=== PATIENT | male | born 1940 | race Caucasian/White ===

== ENCOUNTER 2019-05-26 16:43 | Inpatient (IN) | payer OTHER ==
--- NOTE | 2019-05-26 18:19 | PDOC ---
Documentation entered by Babatunde Salvador SCRIBE, acting as scribe for Jane Bee MD. Jane Bee MD: This documentation has been prepared by the tasheModesto Daniel, SCRIBE, under my direction and personally reviewed by me in its entirety. I confirm that the documentation accurately reflects all work, treatment, procedures, and medical decision making performed by me. 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 Patient had complaint of shoulder pain 05/26/19 18:21 The patient is a 79 year old male with a past medical history of HTN, anemia, hypothyroidism, bipolar disorder, BPH, HLD, CKD, and schizophrenia here today from [facility] for evaluation of fall. The patient is a poor historian and is unable to provide history. As per [facility] paperwork, patient was found on the floor this morning on his abdomen and complained of shoulder pain at that time. Allergies: NKA - Physicial Exam PE: 05/26/19 18:18 Disheveled appearing 79-year-old man with a heavy rod and a essential hand resting tremor 05/26/19 18:19 Head there is no appreciable scalp hematoma or laceration Neck no cervical vertebral tenderness appreciated Lungs no wheezing, no crackles CVS [id number] Abdomen protuberant, nontender Extremities he is able to extend both legs on the gurney and there is some mild edema bilaterally,right shoulder tenderness Skin no appreciable lacerations Neuro patient is alert but has a great difficulty speaking and has a resting hand tremor in his extremities, very poor historian 05/26/19 20:29 05/27/19 02:07 05/27/19 02:08 05/27/19 02:09 - Medical Decision Making 05/26/19 21:45 CAT scan of the head did not show any acute fracture or intracranial hemorrhage CT scan of the neck did not show any fracture 05/27/19 02:10 ct chest no ptx there is a right humerus fracture pt admitted to telemetry syncope/fall/ rt humerus fracture/chronic renal disease stage 4
--- NOTE | 2019-05-26 18:34 | PDOC ---
History of Present Illness - History of Present Illness Initial Comments: 05/26/19 18:28 The patient is a 79 YO M from [place], with a PMHx of anemia, hypothyroidism, bipolar disorder, ASHD, thrombocytopenia, who was BIBA from [facility] s/p unwitnessed fall this morning. According to the information from the care home, the patient was found down around 5am this morning. He was complaining of pain in the R arm leg and had apparently hit the R side of his head. Per the patient he got up and was not using his walker when he fell to the ground on the R side of his body. The patient denied feeling dizzy, having heart palpitations, SOB, CP, abdominal pain, changes in vision or hearing, numbness or tingling in his hands or feet. Pt is an extremely poor historian, hx limited by patients ability to recount events. Pt is extremely tangential and difficult to focus. 05/26/19 18:37 <Tamra Storm - Last Filed: 05/26/19 18:28> <Jane Bee - Last Filed: 05/27/19 00:28> - General Chief Complaint: Injury Stated Complaint: FALL,INJURY Time Seen by Provider: 05/26/19 17:34 Past History - Past Medical History Anemia: Yes Cardiac Disorders: Yes (Atherosclerotic heart disaease, aNGINA) COPD: No Thyroid Disease: Yes (Hypothyroidism) - Psycho Social/Smoking Cessation Hx Smoking History: Never smoked Have you smoked in the past 12 months: No Information on smoking cessation initiated: No Hx Alcohol Use: No Drug/Substance Use Hx: No <Tamra Storm - Last Filed: 05/26/19 18:28> <Jane Bee - Last Filed: 05/27/19 00:28> - Past Medical History Allergies/Adverse Reactions: Allergies Allergy/AdvReac Type Severity Reaction Status Date / Time No Known Allergies Allergy Verified 11/21/18 10:43 Home Medications: Ambulatory Orders Aspirin [ASA -] 1 tab PO DAILY 08/19/18 Divalproex [Depakote -] 1,000 mg PO BID 08/19/18 Gabapentin 100 mg PO BID 08/19/18 Levothyroxine [Synthroid -] 125 mcg PO DAILY 08/19/18 Melatonin 5 mg PO HS 08/19/18 Olanzapine 10 mg PO DAILY 08/19/18 Sennosides [Senna] 8.6 mg PO HS 08/19/18 Tamsulosin HCl 0.4 cap PO HS 08/19/18 Ferrous Sulfate 325 mg PO DAILY 09/30/18 Atorvastatin Ca [Lipitor] 10 mg PO HS 05/26/19 Loxapine Succinate [Loxapine] 10 mg PO BID 05/26/19 Review of Systems - Review of Systems Able to Perform ROS?: Yes Comments:: 05/26/19 18:39 See HPI Is the patient limited Romansh proficient: No <Tamra Storm - Last Filed: 05/26/19 18:28> *Physical Exam - Vital Signs Last Vital Signs Temp Pulse Resp BP Pulse Ox 99.5 F 102 H 20 129/75 93 L 05/26/19 16:53 05/26/19 16:53 05/26/19 16:53 05/26/19 16:53 05/26/19 16:53 - Physical Exam General Appearance: Yes: Disheveled, Obese. No: Apparent Distress HEENT: positive: EOMI, Normal Voice, Other (extremely dry mucous membranes ) Neck: positive: Trachea midline, Supple. negative: Tender Respiratory/Chest: positive: Lungs Clear, Normal Breath Sounds. negative: Chest Tender, Respiratory Distress, Accessory Muscle Use Cardiovascular: positive: Regular Rhythm, Regular Rate, S1, S2 Gastrointestinal/Abdominal: positive: Normal Bowel Sounds, Soft. negative: Tender, Organomegaly Extremity: positive: Normal Capillary Refill, Tender, Other (Limited ROM @ R shoulder joint 2/2 pain, R arm looks swollen compared to L. TTP at R shoulder. 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 NML intact, Alert, Normal Response <Tamra Storm - Last Filed: 05/26/19 18:28> - Vital Signs Last Vital Signs Temp Pulse Resp BP Pulse Ox 99.5 F 102 H 20 129/75 93 L 05/26/19 16:53 05/26/19 16:53 05/26/19 16:53 05/26/19 16:53 05/26/19 16:53 <Jane Bee - Last Filed: 05/27/19 00:28> ED Treatment Course - RADIOLOGY Radiology Studies Ordered: Category Date Time Status CERVICAL SPINE CT W/O CONTR [CT] Stat CT Scan 05/26/19 18:[address] WITHOUT CONTRAST [CT] Stat CT Scan 05/26/19 18:13 Ordered ANKLE-RIGHT [RAD] Stat Radiology 05/26/19 18:09 Ordered CHEST PA & LAT [RAD] Stat Radiology 05/26/19 18:09 Ordered FEMUR-RIGHT [RAD] Stat Radiology 05/26/19 18:09 Ordered HUMERUS-RIGHT [RAD] Stat Radiology 05/26/19 18:09 Ordered PELVIS [RAD] Stat Radiology 05/26/19 18:09 Ordered WRIST- RIGHT [RAD] Stat Radiology 05/26/19 18:09 Ordered <Tamra Storm - Last Filed: 05/26/19 18:28> - LABORATORY CBC & Chemistry Diagram: 05/26/19 21:10 05/26/19 21:13 - ADDITIONAL ORDERS Additional order review: Laboratory Results 05/26/19 05/26/19 21:13 21:13 PT with INR 11.30 INR 0.96 Sodium 148 H Potassium 4.5 Chloride 115 H Carbon Dioxide 26 Anion Gap 7 L BUN 31.8 H Creatinine 2.9 H Est GFR (CKD-EPI)AfAm 23.12 Est GFR (CKD-EPI)NonAf 19.95 Random Glucose 144 H Calcium 8.8 Total Bilirubin 0.6 AST 14 L ALT 19 Alkaline Phosphatase 62 Creatine Kinase 184 Creatine Kinase Index 0.9 CK-MB (CK-2) 1.7 Troponin I < 0.02 Total Protein 6.9 Albumin 3.2 L 05/26/19 21:10 RBC 3.45 L MCV 101.4 H MCHC 32.7 RDW 13.9 MPV 10.1 Neutrophils % 59.5 Lymphocytes % 19.0 Monocytes % 20.6 H Eosinophils % 0.1 Basophils % 0.8 - RADIOLOGY Radiology Studies Ordered: Category Date Time Status CHEST CT WITHOUT CONTRAST [CT] Stat CT Scan 05/26/19 19:39 Completed - Medications Given in the ED: ED Medications Discontinued Medications Generic Name Dose Route Start Last Admin Trade Name Freq PRN Reason Stop Dose Admin Acetaminophen 975 mg 05/26/19 19:24 05/26/19 21:22 Tylenol - PO 05/26/19 19:25 Not Given ONCE ONE <Jane Bee - Last Filed: 05/27/19 00:28> Medical Decision Making - Medical Decision Making 05/26/19 18:34 The patient is a 79 YO M from [place], with a PMHx of anemia, hypothyroidism, bipolar disorder, ASHD, thrombocytopenia, who was BIBA from [facility] s/p unwitnessed fall this morning. Will obtain: - CT head and c-spine without contrast - CBC - CMP - Cardiac Profile - EKG - Xrays of the RUE, RLE, pelvis and chest <Tamra Storm - Last Filed: 05/26/19 18:28> Discharge <Tamra Storm - Last Filed: 05/26/19 18:28> - Discharge Information Problems reviewed: Yes - Admission Yes <Jane Bee - Last Filed: 05/27/19 00:28> - Discharge Information Clinical Impression/Diagnosis: Chronic renal failure, stage 4 (severe), Atypical syncope, Essential tremor, Bipolar disease, chronic Displaced fracture of left humerus Qualifiers: Encounter type: initial encounter Humerus Location: surgical neck Fracture type : closed Fracture morphology: unspecified fracture morphology Qualified Code(s) : S42.212A - Unspecified displaced fracture of surgical neck of left humerus, initial encounter for closed fracture Fall Qualifiers: Encounter type: initial encounter Qualified Code(s): W19.XXXA - Unspecified fall, initial encounter Condition: Good
[2019-05-26] MEDS ORDERED: ACETAMINOPHEN 500 MG TABLET (FP) PO ONE (19:24)
[2019-05-26] MEDS ORDERED: ACETAMINOPHEN 325 MG TABLET (FP) ONE (21:21)
[2019-05-26 21:29] LABS: BASO % 0.8 % (0-2.0); EOS % 0.1 % (0-4.5); HEMOGLOBIN 11.4 GM/dL (11.7-16.9); MCH 33.1 pg (25.7-33.7); MCHC 32.7 g/dl (32.0-35.9); MEAN CELL VOLUME 101.4 fl (80-96); MEAN PLT VOLUME 10.1 fl (7.5-11.1); MONO % 20.6 % (3.8-10.2); NEUT % 59.5 % (42.8-82.8); PLATELET COUNT 101 K/MM3 (134-434); RBC 3.45 M/mm3 (4.00-5.60); RDW 13.9 % (11.9-15.9); WHITE BLOOD COUNT 10.5 K/mm3 (4.0-10.0)
[2019-05-26 21:51] LABS: ALBUMIN 3.2 g/dl (3.4-5.0); ALK PHOS 62 U/L (45-117); ANION GAP 7 MMOL/L (8-16); BILIRUBIN,TOTAL 0.6 mg/dL (0.2-1); BLOOD UREA NITROGEN 31.8 mg/dL (7-18); CALCIUM 8.8 mg/dL (8.5-10.1); CHLORIDE 115 mmol/L (98-107); CO2 26 mmol/L (21-32); CREATININE 2.9 mg/dL (0.55-1.3); GLUCOSE,RANDOM 144 mg/dL (74-106); POTASSIUM 4.5 mmol/L (3.5-5.1); SGOT/AST 14 U/L (15-37); SGPT/ALT 19 U/L (13-61); SODIUM 148 mmol/L (136-145); TOT PROT 6.9 g/dl (6.4-8.2)
[2019-05-26 21:54] LABS: INR 0.96 (0.83-1.09); PROTHROMBIN TIME (PATIENT) 11.3 SEC (9.7-13.0)
[2019-05-26 23:06] LABS: PLATELET ESTIMATE DECREASED
--- NOTE | 2019-05-26 23:24 | HP ---
Admitting History and Physical - Primary Care Physician PCP: Lacho Ureña ([facility]) - Admission History of Present Illness: This is a 79 y/o man from [facility] with a PMHx of HTN, CKD Stage 4, Anemia, Hypothyroidism, Bipolar Disorder, ASHD, Thrombocytopenia. Who presented to s/p unwitnessed fall this morning. Patient has Bipolar and Mague According to the information from the long term, the patient was found down around 5am this morning. He was complaining of pain in the R arm leg and had apparently hit the R side of his head. Per the patient he got up and was not using his walker when he fell to the ground on the R side of his body. The patient denied feeling dizzy, having heart palpitations, SOB, CP, abdominal pain, changes in vision or hearing, numbness or tingling in his hands or feet. Pt is an extremely poor historian, hx limited by patients ability to recount events. Pt is extremely tangential and difficult to focus. - Smoking History Smoking history: Never smoked Have you smoked in the past 12 months: No - Alcohol/Substance Use Hx Alcohol Use: No Home Medications - Allergies Allergies/Adverse Reactions: Allergies Allergy/AdvReac Type Severity Reaction Status Date / Time No Known Allergies Allergy Verified 11/21/18 10:43 - Home Medications Home Medications: Ambulatory Orders Aspirin [ASA -] 1 tab PO DAILY 08/19/18 Divalproex [Depakote -] 1,000 mg PO BID 08/19/18 Gabapentin 100 mg PO BID 08/19/18 Levothyroxine [Synthroid -] 125 mcg PO DAILY 08/19/18 Melatonin 5 mg PO HS 08/19/18 Olanzapine 10 mg PO DAILY 08/19/18 Sennosides [Senna] 8.6 mg PO HS 08/19/18 Tamsulosin HCl 0.4 cap PO HS 08/19/18 Ferrous Sulfate 325 mg PO DAILY 09/30/18 Atorvastatin Ca [Lipitor] 10 mg PO HS 05/26/19 Loxapine Succinate [Loxapine] 10 mg PO BID 05/26/19 Physical Examination Vital Signs: Vital Signs Temperature 99.5 F 05/26/19 16:53 Pulse Rate 102 H 05/26/19 16:53 Respiratory Rate 20 05/26/19 16:53 Blood Pressure 129/75 05/26/19 16:53 O2 Sat by Pulse Oximetry (%) 93 L 05/26/19 16:53 Labs: CBC, BMP 05/26/19 21:10 05/26/19 21:13 Problem List - Problems (1) Atypical syncope Assessment/Plan: Likely secondary to arrhythmia vs advance disease process Cardiac monitoring Serial Enzymes Appreciate Cardiology consult Echo in am EKG- reviewed Chest Xray-reviewed Code(s): R55 - SYNCOPE AND COLLAPSE (2) Displaced fracture of right humerus Assessment/Plan: s/p fall at [facility] Humerus Xray- reviewed Appreciate Ortho Consult Sling Elevate extremity Neurovascular checks NPO Ofirmev prn Code(s): S42.301A - UNSP FRACTURE OF SHAFT OF HUMERUS, RIGHT ARM, INIT (3) Fall Assessment/Plan: Unwitnessed fall at [facility] Head CT reviewed Xrays reviewed See above Fall Precautions Code(s): W19.XXXA - UNSPECIFIED FALL, INITIAL ENCOUNTER Qualifiers: Encounter type: initial encounter Qualified Code(s): W19.XXXA - Unspecified fall, initial encounter (4) Bipolar disease, chronic Assessment/Plan: stable Continue home meds Code(s): F31.9 - BIPOLAR DISORDER, UNSPECIFIED (5) Chronic renal failure, stage 4 (severe) Code(s): N18.4 - CHRONIC KIDNEY DISEASE, STAGE 4 (SEVERE) (6) Lymphedema Code(s): I89.0 - LYMPHEDEMA, NOT ELSEWHERE CLASSIFIED Assessment/Plan This is a 79 y/o man from [facility] with a PMHx of HTN, CKD Stage 4, Anemia, Hypothyroidism, Bipolar Disorder, ASHD, Thrombocytopenia. Admitted for Syncope, Right Humerus Fracture for further evaluation of their emergent condition. Plan: See Problem List FEN Fluid Restriction 1L Replete lytes prn NPO DVT ppx OOB SCDs Heparin SQ Dispo: Requires Inpatient Care Visit type - Emergency Visit Emergency Visit: Yes ED Registration Date: 05/26/19 Care time: The patient presented to the Emergency Department on the above date and was hospitalized for further evaluation of their emergent condition. - New Patient This patient is new to me today: Yes Date on this admission: 05/26/19 - Critical Care Critical Care patient: No
[2019-05-27 02:23] LABS: PH,URINE 6.5 (5.0-8.0); URINE APPEARANCE CLEAR; URINE BILIRUBIN NEGATIVE (NEGATIVE); URINE COLOR YELLOW; URINE GLUCOSE (UA) NEGATIVE (NEGATIVE); URINE KETONE NEGATIVE (NEGATIVE); URINE LEUK ESTERASE NEGATIVE (NEGATIVE); URINE NITRITE NEGATIVE (NEGATIVE); URINE PROTEIN TRACE (NEGATIVE); URINE UROBILINOGEN 0.2 mg/dL (0.2-1.0)
[2019-05-27] MEDS ORDERED: ACETAMINOPHEN 1000 MG/100 ML VIAL (NON FORMULARY) IVPB PRN (05:22)
[2019-05-27] MEDS ORDERED: LEVOTHYROXINE NA 25 MCG TABLET (FP) ONE (06:10)
[2019-05-27] MEDS: LEVOTHYROXINE NA 125 MCG TABLET (FP) PO SCH (06:39)
[2019-05-27 07:38] LABS: BASO % 0.6 % (0-2.0); EOS % 0.1 % (0-4.5); HEMOGLOBIN 11.5 GM/dL (11.7-16.9); LYMPH % 22.3 % (8-40); MCH 33.9 pg (25.7-33.7); MCHC 33.9 g/dl (32.0-35.9); MEAN PLT VOLUME 10.4 fl (7.5-11.1); MONO % 22.2 % (3.8-10.2); NEUT % 54.8 % (42.8-82.8); PLATELET COUNT 104 K/MM3 (134-434); RDW 13.7 % (11.9-15.9); WHITE BLOOD COUNT 10.6 K/mm3 (4.0-10.0)
[2019-05-27 08:10] LABS: ANION GAP 6 MMOL/L (8-16); BLOOD UREA NITROGEN 33.8 mg/dL (7-18); CALCIUM 8.9 mg/dL (8.5-10.1); CHLORIDE 118 mmol/L (98-107); CHOLESTEROL 185 mg/dL (50-200); CO2 26 mmol/L (21-32); CREATININE 2.8 mg/dL (0.55-1.3); GLUCOSE,RANDOM 128 mg/dL (74-106); HDL CHOLESTEROL 28 mg/dL (40-60); LDL CHOLESTEROL (ONLY SJRH) 120 mg/dL (5-100); MAGNESIUM 2.7 mg/dL (1.8-2.4); PHOSPHOROUS 2.8 mg/dL (2.5-4.9); POTASSIUM 4.2 mmol/L (3.5-5.1); SODIUM 151 mmol/L (136-145); TRIGLYCERIDES 260 mg/dL (0-150)
[2019-05-27] MEDS ORDERED: TAMSULOSIN HCL 0.4 MG CAP PO SCH ×2 (08:30)
--- NOTE | 2019-05-27 08:59 | CON.CARD ---
Consult Consult Specialty:: cardio - History of Present Illness Chief Complaint: fall History of Present Illness: 79 y/o man from [facility] with a PMHx of . Who presented to s/p unwitnessed fall this morning. Patient has Bipolar and Mague According to the information from the [place] [facility], the patient was found down around 5am this morning. He was complaining of pain in the R arm leg and had apparently hit the R side of his head. Per the patient he got up and was not using his walker when he fell to the ground on the R side of his body. tangential historian to admitting team. CT head no acute pathology. + fracture of humerus remains tangential on my exam, with atypical language at times. he does not commit to details of events--states he went in [place], into elevator to lobby, looking out the window and then at some point fell. "yes" he tripped, but ? if he lost consciousness/blacked out. he denies cp, palpitations, feeling dizzy/LH prior to falling PMH: HTN, CKD Stage 4, Anemia, Hypothyroidism, Bipolar Disorder, Thrombocytopenia - Alcohol/Substance Use Hx Alcohol Use: No - Smoking History Smoking history: Never smoked Have you smoked in the past 12 months: No Home Medications - Allergies Allergies/Adverse Reactions: Allergies Allergy/AdvReac Type Severity Reaction Status Date / Time No Known Allergies Allergy Verified 11/21/18 10:43 - Home Medications Home Medications: Ambulatory Orders Aspirin [ASA -] 1 tab PO DAILY 08/19/18 Divalproex [Depakote -] 1,000 mg PO BID 08/19/18 Gabapentin 100 mg PO BID 08/19/18 Levothyroxine [Synthroid -] 125 mcg PO DAILY 08/19/18 Melatonin 5 mg PO HS 08/19/18 Olanzapine 10 mg PO DAILY 08/19/18 Sennosides [Senna] 8.6 mg PO HS 08/19/18 Tamsulosin HCl 0.4 cap PO HS 08/19/18 Ferrous Sulfate 325 mg PO DAILY 09/30/18 Atorvastatin Ca [Lipitor] 10 mg PO HS 05/26/19 Loxapine Succinate [Loxapine] 10 mg PO BID 05/26/19 Family Medical History Family History: Denies (no known cmp) Review of Systems - Review of Systems Constitutional: denies: Chills, Fever Eyes: denies: Eye Pain HENT: denies: Nasal Congestion Neck: denies: Stiffness Cardiovascular: denies: Palpitations Respiratory: denies: Orthopnea, PND Gastrointestinal: denies: Diarrhea, Rectal Bleeding Genitourinary: denies: Burning, Hematuria Musculoskeletal: denies: Muscle Pain Integumentary: denies: Rash Neurological: reports: Syncope. denies: Numbness, Seizure Endocrine: denies: Excessive Sweating Hematology/Lymphatic: denies: Excessive Bleeding Vital Signs: Vital Signs Temperature 99.5 F 05/26/19 16:53 Pulse Rate 93 H 05/27/19 06:16 Respiratory Rate 18 05/27/19 06:16 Blood Pressure 143/114 H 05/27/19 06:16 O2 Sat by Pulse Oximetry (%) 97 05/27/19 06:16 Constitutional: Yes: Well Nourished, No Distress Eyes: No: Sclera Icterus HENT: No: Nasal Congestion Neck: No: Decreased ROM Respiratory: Yes: CTA Bilaterally (anteriorly (R arm sling with pain limits positioning)). No: Accessory Muscle Use, Rales, Wheezes Gastrointestinal: Yes: Normal Bowel Sounds. No: Distention, Hepatomegaly, Palpable Mass, Tenderness Cardiovascular: Yes: Regular Rate and Rhythm JVD: No Carotid Bruit: No PMI: Non-Displaced Heart Sounds: Yes: S1, S2. No: Gallop Murmur: No: Systolic Murmur, Diastolic Murmur Musculoskeletal: Yes: Other (No kyphosis) Extremities: No: Cool, Cyanosis Edema: No Peripheral Pulses: 2+ Left Carotid, 2+ Right Carotid, 2+ Left Doralis Pedis, 2+ Right Dorsalis Pedis Integumentary: No: Jaundice Neurological: Yes: Alert. No: Seizure Psychiatric: No: Agitated - Other Data Labs, Other Data: CBC, BMP 05/27/19 06:50 05/27/19 06:50 INR, PTT INR 0.96 (0.83-1.09) 05/26/19 21:13 Troponin, BNP 05/26/19 21:13 Troponin I < 0.02 Troponin, BNP 05/26/19 21:13 Troponin I < 0.02 Assessment/Plan ECG: NSR, RBBB/LAFB, no pathological q's or ST-Ts --no old CT chest: no acute lung pathology s/p fall--r/o syncope: -given unreliability of history here, need to rely on objective findings -monitor telemetry x 24-48 hrs -echo for risk stratification -check orthostatics -ecg no ischemia, trop neg x 2--in absence of sx's of myocardial ischemia there' s no need for further ischemia eval renal insuff: -creat 2.8 here, no baseline available -per primary team hypernatremia: -per primary team HTN: -labile here -not on home bp meds -observe trend here, while holding meds for now
--- NOTE | 2019-05-27 10:12 | EKG ---
Test Reason : Blood Pressure : / mmHG Vent. Rate : 106 BPM Atrial Rate : 106 BPM P-R Int : 136 ms QRS Dur : 142 ms QT Int : 394 ms P-R-T Axes : 074 -37 035 degrees QTc Int : 523 ms SINUS TACHYCARDIA WITH PREMATURE ATRIAL COMPLEXES LEFT AXIS DEVIATION RIGHT BUNDLE BRANCH BLOCK MINIMAL VOLTAGE CRITERIA FOR LVH, MAY BE NORMAL VARIANT ABNORMAL ECG NO PREVIOUS ECGS AVAILABLE Confirmed by CECELIA VALDIVIA, BRYN ([id number]) on 05/27/2019 10:11:54 AM Referred By: Confirmed By:BRYN RAI MD
[2019-05-27 10:42] LABS: ANISOCYTOSIS 1+; MACROCYTOSIS 0; PLATELET ESTIMATE DECREASED
[2019-05-27] MEDS ORDERED: SODIUM CHLORIDE 0.45% 1,000 ML IV SCH (10:45)
[2019-05-27] MEDS: DIVALPROEX SODIUM 125 MG SPRINKLE CAPS PO SCH ×2 (11:00→22:59)
[2019-05-27] MEDS: HEPARIN NA (PORCINE) 5,000 UNITS/ML 1ML VIAL SQ SCH ×2 (11:00→22:59)
[2019-05-27] MEDS: TAMSULOSIN HCL 0.4 MG CAP PO SCH (11:00)
[2019-05-27] MEDS: GABAPENTIN 100 MG CAPSULE (FP) PO SCH ×2 (11:00→22:59)
--- NOTE | 2019-05-27 12:52 | ECHO ---
Name: CAROLEE, MAGDIEL Exam:Adult Echocardiogram Study Date: 05/27/2019 08:56 AM Age: 79 yrs Reason For Study: SYNCOPE Height: 62 in Weight: 194 lb BSA: 1.9 m2 MMode/2D Measurements & Calculations IVSd: 1.1 cm Ao root diam: 2.8 cm LVIDd: 4.3 cm LA dimension: 2.6 cm LVIDs: 2.5 cm LVPWd: 1.1 cm EDV(Teich): 81.1 ml LVOT diam: 2.0 cm ESV(Teich): 22.0 ml LAV (MOD-bp): 29.9 ml Doppler Measurements & Calculations MV E max vladimir: 65.0 cm/sec Ao V2 max: 126.2 cm/sec MV A max vladimir: 91.7 cm/sec Ao max P.4 mmHg MV E/A: 0.71 MV dec time: 0.14 sec AMY(V,D): 2.6 cm2 LV V1 max P.8 mmHg TR max vladimir: 232.1 cm/sec LV V1 max: 109.1 cm/sec TR max P.6 mmHg PA V2 max: 107.2 cm/sec Med Peak E' Vladimir: 4.8 cm/sec PA max P.6 mmHg Med E/e': 13.6 Lat Peak E' Vladimir: 7.5 cm/sec Lat E/e': 8.7 Procedure A two-dimensional transthoracic echocardiogram with color flow and Doppler was performed. Left Ventricle The left ventricular size, thickness and function are normal. The left ventricular ejection fraction is normal. E/A reversal consistent with but not diagnostic of poor LV compliance. The left ventricular w all motion is normal. Right Ventricle The right ventricle is not well visualized. Atria Normal left and right atrial size and function. Mitral Valve There is mild mitral valve thickening. There is no mitral valve stenosis. There is trace to mild mitr al regurgitation. Tricuspid Valve The tricuspid valve is not well visualized. There is no tricuspid stenosis. There is Trace to mild tr icuspid regurgitation. Right ventricular systolic pressure is normal. Aortic Valve The aortic valve is not well visualized. No hemodynamically significant valvular aortic stenosis. No aortic regurgitation is present. Pulmonic Valve The pulmonic valve is not well visualized. Great Vessels The aortic root is normal size. Pericardium/Pleura There is no pericardial effusion. Interpretation Summary The left ventricular size, thickness and function are normal The left ventricular ejection fraction is normal. The left ventricular wall motion is normal. There is trace to mild mitral regurgitation. E/A reversal consistent with but not diagnostic of poor LV compliance The right ventricle is not well visualized. There is Trace to mild tricuspid regurgitation. Right ventricular systolic pressure is normal. MD Tacos Joiner 05/27/2019 12:52 PM
--- NOTE | 2019-05-27 13:36 | PN ---
Progress Note, Physician Chief Complaint: s/p fall. Syncope History of Present Illness: Examined in ER He does not remember events Noted he had a previous fall last month Unsteady gait per [facility] notes No headaches , SOB , chest pain ,dizziness - Current Medication List Current Medications: Active Medications Acetaminophen (Ofirmev Injection -) 1,000 mg IVPB Q6H PRN PRN Reason: PAIN LEVEL 6-10 Atorvastatin Calcium (Lipitor -) 10 mg PO HS [facility] Divalproex Sodium (Depakote Sprinkle Caps -) 1,000 mg PO BID [facility] Last Admin: 05/27/19 11:00 Dose: 1,000 mg Gabapentin (Neurontin -) 100 mg PO BID [facility] Last Admin: 05/27/19 11:00 Dose: 100 mg Heparin Sodium (Porcine) (Heparin -) 5,000 unit SQ BID [facility] Last Admin: 05/27/19 11:00 Dose: 5,000 unit Sodium Chloride (1/2 Normal Saline) 1,000 mls @ 83 mls/hr IV ASDIR [facility] Levothyroxine Sodium (Synthroid -) 125 mcg PO DAILY@0700 [facility] Last Admin: 05/27/19 06:39 Dose: 125 mcg Tamsulosin HCl (Flomax -) 0.4 mg PO DAILY@0830 [facility] Last Admin: 05/27/19 11:00 Dose: 0.4 mg - Objective Vital Signs: Vital Signs Temperature 98.3 F 05/27/19 12:06 Pulse Rate 94 H 05/27/19 12:06 Respiratory Rate 18 05/27/19 06:16 Blood Pressure 121/72 05/27/19 12:06 O2 Sat by Pulse Oximetry (%) 98 05/27/19 12:06 Constitutional: Yes: No Distress, Calm Cardiovascular: Yes: Regular Rate and Rhythm Respiratory: Yes: CTA Bilaterally Gastrointestinal: Yes: Normal Bowel Sounds, Soft, Abdomen, Obese. No: Tenderness Edema: No Neurological: Yes: Alert, Tremors Psychiatric: Yes: Alert Labs: CBC, BMP 05/27/19 06:50 05/27/19 06:50 INR, PTT INR 0.96 (0.83-1.09) 05/26/19 21:13 Problem List - Problems (1) Atypical syncope Code(s): R55 - SYNCOPE AND COLLAPSE (2) Bipolar disease, chronic Code(s): F31.9 - BIPOLAR DISORDER, UNSPECIFIED (3) Chronic renal failure, stage 4 (severe) Code(s): N18.4 - CHRONIC KIDNEY DISEASE, STAGE 4 (SEVERE) (4) Essential tremor Code(s): G25.0 - ESSENTIAL TREMOR (5) Fall Code(s): W19.XXXA - UNSPECIFIED FALL, INITIAL ENCOUNTER Qualifiers: Encounter type: initial encounter Qualified Code(s): W19.XXXA - Unspecified fall, initial encounter (6) Displaced fracture of right humerus Code(s): S42.301A - UNSP FRACTURE OF SHAFT OF HUMERUS, RIGHT ARM, INIT Assessment/Plan PLAN s/p recurrent falls -- PT eval Syncope -- unsure if he syncopized -- unwitnessed fall -- Cardiac enzymes negative -- head Ct negative -- check carotid doppler -- cardiology eval noted -- no further ischemic work up -- ct chest negative right humerus fracture -- splinted -- Ortho eval -- h/o osteoporosis acute on CKD-- baseline 2.5 -- labs done in February --iv fluids DVT prophylaxis
[2019-05-27 15:25] VITALS: BMI 34.2
--- NOTE | 2019-05-27 16:19 | CONSULT ---
Consult Consult Specialty:: orthopedics Reason for Consultation:: right shoulder - History of Present Illness History of Present Illness: 79y/o male c/o right shoulder pain. he fell a few days ago but cannot recall the events. The pain is worse with movement of the shoulder and better with rest. He was placed into a sling by the ER. Denies any numbness or tingling - Alcohol/Substance Use Hx Alcohol Use: No - Smoking History Smoking history: Never smoked Have you smoked in the past 12 months: No Home Medications - Allergies Allergies/Adverse Reactions: Allergies Allergy/AdvReac Type Severity Reaction Status Date / Time No Known Allergies Allergy Verified 11/21/18 10:43 - Home Medications Home Medications: Ambulatory Orders Aspirin [ASA -] 1 tab PO DAILY 08/19/18 Divalproex [Depakote -] 1,000 mg PO BID 08/19/18 Gabapentin 100 mg PO BID 08/19/18 Levothyroxine [Synthroid -] 125 mcg PO DAILY 08/19/18 Melatonin 5 mg PO HS 08/19/18 Olanzapine 10 mg PO DAILY 08/19/18 Sennosides [Senna] 8.6 mg PO HS 08/19/18 Tamsulosin HCl 0.4 cap PO HS 08/19/18 Ferrous Sulfate 325 mg PO DAILY 09/30/18 Atorvastatin Ca [Lipitor] 10 mg PO HS 05/26/19 Loxapine Succinate [Loxapine] 10 mg PO BID 05/26/19 Review of Systems - Review of Systems Constitutional: reports: No Symptoms Eyes: reports: No Symptoms HENT: reports: No Symptoms Neck: reports: No Symptoms Cardiovascular: reports: No Symptoms Respiratory: reports: No Symptoms Gastrointestinal: reports: No Symptoms Genitourinary: reports: No Symptoms Breasts: reports: No Symptoms Reported Musculoskeletal: reports: Extremity Pain Integumentary: reports: No Symptoms Neurological: reports: No Symptoms Endocrine: reports: No Symptoms Hematology/Lymphatic: reports: No Symptoms Psychiatric: reports: No Symptoms Physical Exam Vital Signs: Vital Signs Temperature 99.6 F 05/27/19 14:35 Pulse Rate 103 H 05/27/19 14:35 Respiratory Rate 18 05/27/19 14:35 Blood Pressure 150/102 H 05/27/19 14:35 O2 Sat by Pulse Oximetry (%) 98 05/27/19 14:35 Constitutional: Yes: Well Nourished, No Distress, Calm HENT: Yes: Atraumatic, Normocephalic Extremities: Yes: Other (Right shoulder: diffuse ecchymosis of the right arm. There is mild edema. There is pain with motion of the shoulder. Compartments are soft. pain with motion of the shoulder. Sensation intact and well perfused distally. Fingers fully mobile.) Labs: CBC, BMP 05/27/19 06:50 05/27/19 06:50 Imaging - Results X-ray: Report Reviewed, Image Reviewed (Proximal humerus fracture) Assessment/Plan #1 Right proximal humerus fracture -Continue sling immoblization x 4 weeks, may remove to bathe -Repeat x-ray in 2 weeks -Pain control -Follow up in 2 weeks as outpatient -May be discharged from orthopedic standpoint.
[2019-05-27] MEDS ORDERED: ATORVASTATIN CA 10 MG TABLET (FP) PO SCH (22:00)
[2019-05-27] MEDS ORDERED: PT OWN MED DRAWER 7, Y5N ONE (22:31)
[2019-05-28 03:24] VITALS: TEMP 97.9
[2019-05-28] MEDS: LEVOTHYROXINE NA 125 MCG TABLET (FP) PO SCH (06:31)
[2019-05-28 06:43] VITALS: BP 136/85; PULSE 97
[2019-05-28 07:38] LABS: BLOOD UREA NITROGEN 34.2 mg/dL (7-18); CALCIUM 8.5 mg/dL (8.5-10.1); CREATININE 2.9 mg/dL (0.55-1.3); POTASSIUM 4.4 mmol/L (3.5-5.1)
[2019-05-28] MEDS: TAMSULOSIN HCL 0.4 MG CAP PO SCH (09:18)
[2019-05-28] MEDS: HEPARIN NA (PORCINE) 5,000 UNITS/ML 1ML VIAL SQ SCH (09:19)
[2019-05-28] MEDS: DIVALPROEX SODIUM 125 MG SPRINKLE CAPS PO SCH (09:19)
[2019-05-28] MEDS: GABAPENTIN 100 MG CAPSULE (FP) PO SCH (09:19)
--- NOTE | 2019-05-28 11:05 | DS ---
Physical Examination Vital Signs: Vital Signs Temperature 97.9 F 05/28/19 02:00 Pulse Rate 97 H 05/28/19 06:00 Respiratory Rate 20 05/28/19 09:00 Blood Pressure 136/85 05/28/19 06:00 O2 Sat by Pulse Oximetry (%) 96 05/28/19 09:00 Constitutional: Yes: No Distress, Calm Cardiovascular: Yes: Regular Rate and Rhythm Respiratory: Yes: CTA Bilaterally Gastrointestinal: Yes: Normal Bowel Sounds, Soft, Abdomen, Obese. No: Tenderness Edema: No Neurological: Yes: Alert Labs: CBC, BMP 05/27/19 06:50 05/28/19 06:50 Discharge Summary Problems reviewed: Yes Reason For Visit: ESSENTIAL TREMOR, ATYPICAL SYNCOPE, CHRONIC RENAL Current Active Problems Atypical syncope (Acute) Bipolar disease, chronic (Acute) Chronic renal failure, stage 4 (severe) (Acute) Displaced fracture of left humerus (Acute) Displaced fracture of right humerus (Acute) Essential tremor (Acute) Fall (Acute) Health Concerns: ADMISSION HISTORY__ - Admission History of Present Illness: This is a 79 y/o man from [facility] with a PMHx of HTN, CKD Stage 4, Anemia, Hypothyroidism, Bipolar Disorder, ASHD, Thrombocytopenia. Who presented to s/p unwitnessed fall this morning. Patient has Bipolar and Mague According to the information from the jail, the patient was found down around 5am this morning. He was complaining of pain in the R arm leg and had apparently hit the R side of his head. Per the patient he got up and was not using his walker when he fell to the ground on the R side of his body. The patient denied feeling dizzy, having heart palpitations, SOB, CP, abdominal pain, changes in vision or hearing, numbness or tingling in his hands or feet. Pt is an extremely poor historian, hx limited by patients ability to recount events. Pt is extremely tangential and difficult to focus. HOSPITAL COURSE Pt was admitted to telemetry cardiac enzymes negative-- ACS ruled out Chest CT - negative CT head - negative Xray shoulder --right humeral had fracture Echo--diastolic dysfunction Per Ortho-- #1 Right proximal humerus fracture -Continue sling immoblization x 4 weeks, may remove to bathe -Repeat x-ray in 2 weeks -Pain control -Follow up in 2 weeks as outpatient -May be discharged from orthopedic standpoint. Per Cardiology-- no further ischemic work up He will need renal evaluation for chronic renal failure check BMP weekly encourage fluids stable for dc to NH Condition: Good - Instructions Diet, Activity, Other Instructions: #1 Right proximal humerus fracture -Continue sling immoblization x 4 weeks, may remove to bathe -Repeat x-ray in 2 weeks -Pain control -Follow up in 2 weeks as outpatient -May be discharged from orthopedic standpoint. Referrals: Rodrick Adrian MD [Staff Physician] - Disposition: [facility] - Home Medications Comprehensive Discharge Medication List: Ambulatory Orders Aspirin [ASA -] 1 tab PO DAILY 08/19/18 Divalproex [Depakote -] 1,000 mg PO BID 08/19/18 Gabapentin 100 mg PO BID 08/19/18 Levothyroxine [Synthroid -] 125 mcg PO DAILY 08/19/18 Melatonin 5 mg PO HS 08/19/18 Olanzapine 10 mg PO DAILY 08/19/18 Sennosides [Senna] 8.6 mg PO HS 08/19/18 Tamsulosin HCl 0.4 cap PO HS 08/19/18 Ferrous Sulfate 325 mg PO DAILY 09/30/18 Atorvastatin Ca [Lipitor] 10 mg PO HS 05/26/19 Loxapine Succinate [Loxapine] 10 mg PO BID 05/26/19
--- NOTE | 2019-05-28 12:27 | PN ---
Progress Note (short form) - Note Progress Note: s: confused Current Medications Generic Name Dose Route Start Last Admin Trade Name Ronalq PRN Reason Stop Dose Admin Acetaminophen 1,000 mg 05/27/19 05:22 Ofirmev Injection - IVPB Q6H PRN PAIN LEVEL 6-10 Atorvastatin Calcium 10 mg 05/27/19 22:00 05/27/19 22:59 Lipitor - PO 10 mg HS GENESIS Administration Divalproex Sodium 1,000 mg 05/27/19 10:00 05/28/19 09:19 Depakote Sprinkle Caps - PO 1,000 mg BID GENESIS Administration Gabapentin 100 mg 05/27/19 10:00 05/28/19 09:19 Neurontin - PO 100 mg BID GENESSI Administration Heparin Sodium (Porcine) 5,000 unit 05/27/19 10:00 05/28/19 09:19 Heparin - SQ 5,000 unit BID GENESIS Administration Sodium Chloride 1,000 mls @ 83 mls/hr 05/27/19 10:45 05/27/19 23:00 1/2 Normal Saline IV 83 mls/hr ASDIR GENESIS Administration Levothyroxine Sodium 125 mcg 05/27/19 07:00 05/28/19 06:31 Synthroid - PO 125 mcg DAILY@0700 GENESIS Administration Tamsulosin HCl 0.4 mg 05/27/19 08:30 05/28/19 09:18 Flomax - PO 0.4 mg DAILY@0830 GENESIS Administration Vital Signs Period Temp Pulse Resp BP Sys/Larkin Pulse Ox Last 24 Hr 97.9 F-100.6 F 95-105 18-20 130-150/83-102 95-98 Constitutional: Yes: Well Nourished, No Distress Eyes: No: Sclera Icterus HENT: No: Nasal Congestion Neck: No: Decreased ROM Respiratory: Yes: CTA Bilaterally (anteriorly (R arm sling with pain limits positioning)). No: Accessory Muscle Use, Rales, Wheezes Gastrointestinal: Yes: Normal Bowel Sounds. No: Distention, Hepatomegaly, Palpable Mass, Tenderness Cardiovascular: Yes: Regular Rate and Rhythm JVD: No Heart Sounds: Yes: S1, S2. No: Gallop Murmur: No: Systolic Murmur, Diastolic Murmur Extremities: No: Cool, Cyanosis Edema: No Peripheral Pulses: 2+ Left Carotid, 2+ Right Carotid, 2+ Left Doralis Pedis, 2+ Right Dorsalis Pedis Integumentary: No: Jaundice Neurological: Yes: Alert. Psychiatric: No: Agitated CBC, BMP 05/27/19 06:50 05/28/19 06:50 Assessment/Plan ECG: NSR, RBBB/LAFB, no pathological q's or ST-Ts --no old CT chest: no acute lung pathology tele: sr s/p fall--r/o syncope: -given unreliability of history here, need to rely on objective findings -tele benign -echo here unremarkable -ecg no ischemia, trop neg x 2--in absence of sx's of myocardial ischemia there' s no need for further ischemia eval renal insuff: -creat 2.8 here, no baseline available -per primary team hypernatremia: -per primary team HTN: -not on home bp meds, monitor for now cardiac lundy stable for dc
== END 2019-05-28 14:03 | DRG 563 ==
LOC: JER 16:43 → JERBED 05-27 00:29 → J4W 05-27 13:38
PROVIDERS: ADMIT Internal Medicine; ATTEND Internal Medicine
DX: S42.201A Unspecified fracture of upper end of right humerus, initial encounter for closed fracture (principal); N18.4 Chronic kidney disease, stage 4 (severe); E87.0 Hyperosmolality and hypernatremia; I12.9 Hypertensive chronic kidney disease with stage 1 through stage 4 chronic kidney disease, or unspecified chronic kidney disease; F31.9 Bipolar disorder, unspecified; R55 Syncope and collapse; E03.9 Hypothyroidism, unspecified; G25.0 Essential tremor; I25.10 Atherosclerotic heart disease of native coronary artery without angina pectoris; W19.XXXA Unspecified fall, initial encounter; Y93.9 Activity, unspecified; Y92.89 Other specified places as the place of occurrence of the external cause; Y99.9 Unspecified external cause status; I89.0 Lymphedema, not elsewhere classified; E66.9 Obesity, unspecified; Z68.34 Body mass index [BMI] 34.0-34.9, adult
CPT/HCPCS: 36415; 70450-TC; 71046-TC-FY; 71250-TC; 72125-TC; 72170-TC-FY; 73060-TC-RT-FY; 73110-TC-RT-FY; 73552-TC-RT-FY; 73610-TC-RT-FY; 80048; 80053; 80061; 81003; 82550; 82553; 83036; 83721; 83735; 84100; 84439; 84443; 84484; 85025; 85610; 87086; 87804; 93005; 93010; 93306-TC; 99285-25; J1644

== ENCOUNTER 2019-06-02 19:59 | Inpatient (IN) | payer OTHER ==
--- NOTE | 2019-06-02 20:09 | PDOC ---
Attending Attestation - Resident Resident Name: Eliana Shankar - ED Attending Attestation I have performed the following: I have examined & evaluated the patient, The case was reviewed & discussed with the resident, I agree w/resident's findings & plan - HPI HPI: 06/02/19 23:26 see resident hpi - Physicial Exam PE: 06/02/19 23:26 agree with resident exam - Medical Decision Making 06/02/19 23:26 79-year-old male with altered mental status and fever sent for evaluation from intermediate facility Influenza negative with no obvious infiltrate on chest x-ray and normal urinalysis on catheterized sample Plan for CT scans of the head chest abdomen and pelvis to further evaluate Labs reveal acute on chronic renal failure with acute kidney injury as well as an elevated blood glucose likely due to hyperosmolar state and dehydration Will initiate administration of IV fluids and admit to medical service pending results of imaging
[2019-06-02] MEDS ORDERED: PIPERACILLIN/TAZOB 3.375 GM 3.375 GM in DEXTROSE 5%-WATER - 50 ML IVPB ONE (20:40)
[2019-06-02] MEDS ORDERED: LACTATED RINGERS SOLUTION 1000 ML INFUS.BAG IV ONE ×2 (20:40→23:21)
[2019-06-02] MEDS ORDERED: ACETAMINOPHEN 1000 MG/100 ML VIAL (NON FORMULARY) IVPB ONE (20:40)
[2019-06-02] MEDS ORDERED: PIPERACILLIN/TAZOB 3.375 GM 2.25 GM in DEXTROSE 5%-WATER - 50 ML IVPB ONE (20:47)
[2019-06-02] MEDS ORDERED: PIPERACILLIN/TAZOB 3.375 GM 3.375 GM/50 ML BAG IVPB ONE (20:50)
[2019-06-02] MEDS ORDERED: ACETAMINOPHEN INJECTION 100 ML IVPB ONE (20:50)
--- NOTE | 2019-06-02 20:55 | PDOC ---
History of Present Illness - General Stated Complaint: PNEUMONIA Time Seen by Provider: 06/02/19 20:07 History Source: Long-Term Records Exam Limitations: Clinical Condition - History of Present Illness Initial Comments: 06/02/19 20:56 79y M with PMH of HTN, HLD, CKD Stage 4, Anemia, Hypothyroidism, Schizoaffective Disorder, Thrombocytopenia, BPH BIBVanda from [facility] for being lethargic, febrile to 102 and low O2 saturation. Per records, patient was feeling this way around lunch time which he was found to be febrile for which he was given 1g tylenol. He to be unresponsive this afternoon around 4-5pm. He was given IV fluids and a dose of Zosyn around 5pm today. Records also state that patient was not having any urine output this afternoon. Per EMS, patient was saturating in the 80s so he was placed on NRB. Upon arrival, patient states his name but is otherwise not answering any questions. He is moaning and follows some commands. Unable to obtain history from patient. he is usually alert and oriented with baseline confusion. He was seen here recently after a fall and had a R humeral fracture. PMD: Chacey PMH: see hpi Meds: Divalproex 125mg, Lipitor 10mg, Loxapine 10mg, olanzapine 10mg, levothyroxine 125mcg, Flomax 0.4mg, ASA 81mg, gabapentin 100mg, FeSO4 Allergies: nkda Past History - Past Medical History Allergies/Adverse Reactions: Allergies Allergy/AdvReac Type Severity Reaction Status Date / Time No Known Allergies Allergy Verified 06/02/19 23:25 Home Medications: Ambulatory Orders Aspirin [ASA -] 1 tab PO DAILY 08/19/18 Divalproex [Depakote -] 1,000 mg PO BID 08/19/18 Gabapentin 100 mg PO BID 08/19/18 Levothyroxine [Synthroid -] 125 mcg PO DAILY 08/19/18 Melatonin 5 mg PO HS 08/19/18 Olanzapine 10 mg PO DAILY 08/19/18 Sennosides [Senna] 8.6 mg PO HS 08/19/18 Tamsulosin HCl 0.4 cap PO HS 08/19/18 Ferrous Sulfate 325 mg PO DAILY 09/30/18 Atorvastatin Ca [Lipitor] 10 mg PO HS 05/26/19 Loxapine Succinate [Loxapine] 10 mg PO BID 05/26/19 Acetaminophen 325 mg PO PRN PRN 06/02/19 Acetaminophen [Tylenol -] 500 mg PO Q8H PRN 06/02/19 Ketoconazole 2% Shampoo [Nizoral 2% Shampoo -] 1 applic TP WEEKLY 06/02/19 Oseltamivir Phosphate [Tamiflu] 30 mg PO Q2D 06/02/19 Anemia: Yes Cardiac Disorders: Yes (Atherosclerotic heart disaease, angina) COPD: No Disorders: (CKD) HTN: Yes Hypercholesterolemia: Yes Thyroid Disease: Yes (Hypothyroidism) - Psycho Social/Smoking Cessation Hx Smoking History: Never smoked Have you smoked in the past 12 months: No Hx Alcohol Use: No Drug/Substance Use Hx: No Review of Systems - Review of Systems Able to Perform ROS?: No *Physical Exam - Physical Exam General Appearance: Yes: Nourished, Other (lethargic, moaning) HEENT: positive: KORI, Pharynx Normal, Other (dry membranes) Neck: positive: Trachea midline, Supple. negative: Stridor, Lymphadenopathy (R) , Lymphadenopathy (L) Respiratory/Chest: positive: Decreased Breath Sounds. negative: Respiratory Distress, Accessory Muscle Use, Crackles, Rales, Rhonchi, Stridor, Wheezing Cardiovascular: positive: Regular Rhythm, S1, S2, Tachycardia. negative: Edema , JVD, Murmur Vascular Pulses: Dorsalis-Pedis (R): 2+, Doralis-Pedis (L): 2+ Gastrointestinal/Abdominal: positive: Normal Bowel Sounds, Soft, Distended. negative: Tender Musculoskeletal: negative: CVA Tenderness Extremity: positive: Normal Capillary Refill, Other (R shoulder in sling). negative: Pedal Edema, Calf Tenderness, Erythema Integumentary: positive: Normal Color, Dry, Warm Neurologic: positive: Respond to painful stimul. 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 NML intact, Fully Oriented, Alert, Normal Mood/Affect ED Treatment Course - LABORATORY CBC & Chemistry Diagram: 06/02/19 20:44 06/03/19 02:57 - RADIOLOGY Radiology Studies Ordered: Category Date Time Status CHEST X-RAY PORTABLE* [RAD] Stat Radiology 06/02/19 20:07 Ordered Medical Decision Making - Critical Care Time Total Critical Care Time (minutes): 90 Critical Care Statement: The care of this patient involved high complexity decision making to prevent further life threatening deterioration of the patient 's condition and/or to evaluate & treat vital organ system(s) failure or risk of failure. - Medical Decision Making 06/02/19 21:17 79y M presenting from [place] for lethargy, fever and hypoxia. Patient stating name when asked, but is otherwise moaning and mumbling. rectal 100.3, slight tachycardia, saturating 100 on NRB. 1L fluids hanging and actively running given by EMs. will order another L. patient received Zosyn at 5pm today, will give vanc. -ofirmev (last dose was around noon). sepsis w.u. cxr does not show obvious infiltrate. chem hemolyzed. vbg shows low O2 otherwise no acidosis or hypercapnia. changed to 3L NC will draw abg. wbc 14. rbc 9 (drop of 2u since last admission, will check stool for occult blood) guiaac negative. will order ct head, chest and abodmen without contrast given baseline ckd. total 2L fluids. ua negative for infection. abg: low O2. 06/02/19 23:30 chem shows gluc 500, cr 5, elevated bun (raised from baseline). will order another L of fluids. does not require insulin at this time (no history of diabetes). hyperK (5.3) likely from hemolysis. normal Na. CT images pending. Will admit for sepsis, hhs and aftab pt went up to floor (med/surg) with incomplete admission order. patient was brought back to ER. bgm 116. will repeat bmp. bmp shows hypernatremia 160s, k 5.2, bun 120s, cr 6. consulted nephrology; recommending 1/2ns. will dc ns. henley has already been placed. will monitor output. admitted to tele. Discharge - Discharge Information Problems reviewed: Yes Clinical Impression/Diagnosis: AFTAB (acute kidney injury), Hyperglycemia Sepsis Qualifiers: Sepsis type: sepsis due to unspecified organism Sepsis acute organ dysfunction status: with acute organ dysfunction Severe sepsis acute organ dysfunction type : acute renal failure Acute renal failure type: unspecified Severe sepsis shock status: without septic shock Qualified Code(s): A41.9 - Sepsis, unspecified organism Condition: Stable - Admission Yes - Follow up/Referral - Patient Discharge Instructions - Post Discharge Activity
[2019-06-02] MEDS ORDERED: VANCOMYCIN 1 GM in D5W (PRE-DOCKED) 1,000 MG/250 ML IVPB ONE (20:59)
[2019-06-02] MEDS ORDERED: VANCOMYCIN 1 GRAM (PRE-DOCKED) 1,000 MG/250 ML BAG IVPB ONE (21:08)
[2019-06-02 21:20] LABS: BASO % 0.6 % (0-2.0); HEMATOCRIT 31.5 % (35.4-49); HEMOGLOBIN 9.8 GM/dL (11.7-16.9); LYMPH % 16.6 % (8-40); MCH 32.8 pg (25.7-33.7); MEAN CELL VOLUME 105.8 fl (80-96); MEAN PLT VOLUME 9.7 fl (7.5-11.1); MONO % 18.6 % (3.8-10.2); NEUT % 64.2 % (42.8-82.8); PLATELET COUNT 253 K/MM3 (134-434); RBC 2.98 M/mm3 (4.00-5.60); WHITE BLOOD COUNT 14.2 K/mm3 (4.0-10.0)
[2019-06-02 21:44] LABS: VENOUS PC02 43.8 mmHg (38-52); VENOUS PH 7.31 (7.31-7.41)
[2019-06-02 21:45] LABS: INR 1.19 (0.83-1.09); PROTHROMBIN TIME (PATIENT) 14.1 SEC (9.7-13.0)
[2019-06-02 21:48] LABS: ACTIVATED PTT 33.1 SECONDS (25.2-36.5)
[2019-06-02 21:49] LABS: VENOUS PO2 < 49 mmHg (28-48)
[2019-06-02 22:14] LABS: URINE APPEARANCE CLEAR; URINE BILIRUBIN NEGATIVE (NEGATIVE); URINE COLOR YELLOW; URINE GLUCOSE (UA) NEGATIVE (NEGATIVE); URINE KETONE NEGATIVE (NEGATIVE); URINE LEUK ESTERASE NEGATIVE (NEGATIVE); URINE NITRITE NEGATIVE (NEGATIVE); URINE PROTEIN TRACE (NEGATIVE); URINE UROBILINOGEN 0.2 mg/dL (0.2-1.0)
[2019-06-02 22:15] LABS: ARTERIAL BLD GAS O2 SATURATION 93.7 % (95-98); ARTERIAL BLOOD GAS BASE EXCESS -4.3 meq/l (-2-2); ARTERIAL BLOOD GAS PCO2 37.2 mmHg (35-45); ARTERIAL BLOOD GAS PO2 74.5 mmHg (80-100); ARTERIAL BLOOD GAS pH 7.35 (7.35-7.45); CARBOXYHEMOGLOBIN 1.1 % (0-2)
[2019-06-02 22:22] LABS: ANISOCYTOSIS 2+; MACROCYTOSIS 2+
[2019-06-02 22:23] LABS: PLATELET ESTIMATE ADEQUATE
[2019-06-02 23:19] LABS: ALBUMIN 1.5 g/dl (3.4-5.0); BILIRUBIN,TOTAL 1.1 mg/dL (0.2-1); CALCIUM 7.3 mg/dL (8.5-10.1); CREATININE 5.6 mg/dL (0.55-1.3); POTASSIUM 5.5 mmol/L (3.5-5.1); TOT PROT 5.1 g/dl (6.4-8.2)
[2019-06-02 23:22] LABS: BLOOD UREA NITROGEN 114.4 mg/dL (7-18)
[2019-06-03] MEDS ORDERED: SODIUM CHLORIDE 1,000 ML IV SCH ×2 (02:30→12:45)
--- NOTE | 2019-06-03 02:33 | HP ---
Admitting History and Physical - Primary Care Physician PCP: Dr. Back - Admission Chief Complaint: AMS History of Present Illness: 79 year old male with PMHx of HTN, HLD, CKD Stage 4, Anemia, Hypothyroidism, Schizoaffective Disorder,ASHD, BPH BIBA from [facility] for being lethargic, febrile to 102 and low O2 saturation. Per records, patient was feeling this way around lunch time which he was found to be febrile for which he was given 1g tylenol. Patient found unresponsive this afternoon around 4-5pm,given IV fluids and a dose of Zosyn around 5pm at [place]. Records also state that patient was not having any urine output this afternoon. Per EMS, patient was saturating in the 80s so he was placed on NRB. Patient examined AMS, unable to provide any information. Respond to tactile stimuli, and moans to some verbal commands. Unable to obtain ROS. Patient was here recently 05/26/19 for right arm humerus fx and aytpical syncope. History Source: Medical Record, Transfer Record Limitations to Obtaining History: Clinical Condition - Past Medical History Cardiovascular: Yes: HTN, Hyperlipdemia, Other (ASHD) Renal/: Yes: BPH Heme/Onc: Yes: Anemia Psych: Yes: Schizophrenia Endocrine: Yes: Hypothyroidism - Past Surgical History Past Surgical History: Yes: None Additional Past Surgical History: unable to obtain due to clinical condition - Smoking History Smoking history: Never smoked Have you smoked in the past 12 months: No - Alcohol/Substance Use Hx Alcohol Use: No History of Substance Use: reports: None - Social History Usual Living Arrangement: Yes: [facility] ADL: Support Services History of Recent Travel: No Home Medications - Allergies Allergies/Adverse Reactions: Allergies Allergy/AdvReac Type Severity Reaction Status Date / Time No Known Allergies Allergy Verified 06/02/19 23:25 - Home Medications Home Medications: Ambulatory Orders Aspirin [ASA -] 1 tab PO DAILY 08/19/18 Divalproex [Depakote -] 1,000 mg PO BID 08/19/18 Gabapentin 100 mg PO BID 08/19/18 Levothyroxine [Synthroid -] 125 mcg PO DAILY 08/19/18 Melatonin 5 mg PO HS 08/19/18 Olanzapine 10 mg PO DAILY 08/19/18 Sennosides [Senna] 8.6 mg PO HS 08/19/18 Tamsulosin HCl 0.4 cap PO HS 08/19/18 Ferrous Sulfate 325 mg PO DAILY 09/30/18 Atorvastatin Ca [Lipitor] 10 mg PO HS 05/26/19 Loxapine Succinate [Loxapine] 10 mg PO BID 05/26/19 Acetaminophen 325 mg PO PRN PRN 06/02/19 Acetaminophen [Tylenol -] 500 mg PO Q8H PRN 06/02/19 Ketoconazole 2% Shampoo [Nizoral 2% Shampoo -] 1 applic TP WEEKLY 06/02/19 Oseltamivir Phosphate [Tamiflu] 30 mg PO Q2D 06/02/19 Family Medical History Family History: Unable to Obtain Review of Systems Unable to obtain ROS, reason: AMS, clincial condition Physical Examination Vital Signs: Vital Signs Temperature 100.3 F H 06/02/19 20:10 Pulse Rate 103 H 06/02/19 20:10 Respiratory Rate 25 H 06/02/19 20:10 Blood Pressure 101/61 06/02/19 20:10 O2 Sat by Pulse Oximetry (%) 100 06/02/19 20:10 Constitutional: Yes: Other (AMS, lehtargic responsive to tactile stimuli) Eyes: Yes: Conjunctiva Clear HENT: Yes: Atraumatic, Normocephalic Neck: Yes: Supple, Trachea Midline Cardiovascular: Yes: S1, S2 Respiratory: Yes: Regular, Diminished, On Nasal O2, Rales Gastrointestinal: Yes: Normal Bowel Sounds, Soft Renal/: Yes: WNL Edema: No Peripheral Pulses WNL: Yes Neurological: Yes: Other (respond to tacitle stimuli, AMS) Labs: CBC, BMP 06/02/19 20:44 06/02/19 22:40 Imaging - Results Chest X-ray: Report Reviewed (b/l vascular changes, no acute infiltrate noted) Cat Scan: Report Reviewed (Chest: mild bronchiectasis b/l lower lobe ABD: moderate amount of retained stool Head: no acute finding, chronic ishemic changes) Other: Report Reviewed (wbc: 14.2 bun/ cr: 114.4/5.6 ( from bun:34.2/2.9) jorge glucose: 546, ?POC: 116) Problem List - Problems (1) Sepsis Code(s): A41.9 - SEPSIS, UNSPECIFIED ORGANISM Qualifiers: Sepsis type: sepsis due to unspecified organism Sepsis acute organ dysfunction status: with acute organ dysfunction Severe sepsis acute organ dysfunction type: acute renal failure Acute renal failure type: unspecified Severe sepsis shock status: without septic shock Qualified Code(s): A41.9 - Sepsis, unspecified organism; R65.20 - Severe sepsis without septic shock; N17.9 - Acute kidney failure, unspecified (2) AMS (altered mental status) Code(s): R41.82 - ALTERED MENTAL STATUS, UNSPECIFIED (3) AFTAB (acute kidney injury) Code(s): N17.9 - ACUTE KIDNEY FAILURE, UNSPECIFIED (4) Hyperglycemia Code(s): R73.9 - HYPERGLYCEMIA, UNSPECIFIED (5) Renal failure (ARF), acute on chronic Code(s): N17.9 - ACUTE KIDNEY FAILURE, UNSPECIFIED; N18.9 - CHRONIC KIDNEY DISEASE, UNSPECIFIED (6) HTN (hypertension) Code(s): I10 - ESSENTIAL (PRIMARY) HYPERTENSION (7) HLD (hyperlipidemia) Code(s): E78.5 - HYPERLIPIDEMIA, UNSPECIFIED (8) Anemia Code(s): D64.9 - ANEMIA, UNSPECIFIED (9) Hypothyroidism Code(s): E03.9 - HYPOTHYROIDISM, UNSPECIFIED (10) Schizo affective schizophrenia Code(s): F25.9 - SCHIZOAFFECTIVE DISORDER, UNSPECIFIED (11) BPH (benign prostatic hyperplasia) Code(s): N40.0 - BENIGN PROSTATIC HYPERPLASIA WITHOUT LOWER URINRY TRACT SYMP (12) Hyperkalemia Code(s): E87.5 - HYPERKALEMIA (13) Hypernatremia Code(s): E87.0 - HYPEROSMOLALITY AND HYPERNATREMIA Assessment/Plan 79 year old male with PMHx of HTN, HLD, CKD Stage 4, Anemia, Hypothyroidism, Schizoaffective Disorder,ASHD, BPH BIBA from [facility] for being lethargic, febrile to 102 and low O2 saturation. In ED patient with AMS, sepsis likely due to ?pneumonia, complete renal failure and hyperglycemia without h/o of DM # AMS # Sepsis likely due to pneumonia (temp: 100.3, hypotensive, tachy on arrival) wbc: 14.2, lactic:wnl Chest CT: mild bronchiectasis b/l lower lobe Head CT: no acute finding, chronic ishemic changes Influenza A&B negative UA: negative At NH: given zosyn x1, In ED given Vanco, 1g tylenol, given x2 L LR - repeat cbc,trend wbc , if still trending upward continue with zosyn and vanco IV - continue with Iv tylenol q 6 PRN - continue with IV fluids - O2 via NC, monitor/ maintain Spo2 greater than 90% - follow up blood, urine cx - follow up ID # Renal Failure # acute on chronic AFTAB # Hyperkalemia # Hypernatremia - bun/cr:bun/ cr: 114.4/5.6 ( from bun:34.2/2.9) - repeat bun/cr; 129.8/6.1 - Na+:160, Cl:130, k+:5.2 - ABD/pelvic CT: moderate amount of retained stool, no acute finding - given 2 L LR in ED, continue with IV fluids - ordered repeat CMP - monitor renal function trend - follow up nephrology in AM # Hyperglycemia - random glucose: 546, ?POC: 116 (given 2 L LR in ED) - follow repeat POC, and CMP ordered - if no improvement give insulin SQ # hypotensive - maintain IVF, monitor Bp closely #R Proximal Humeral Fx -Seen by ortho during prior admission -Pain control -Cont sling immobilization #HLD -Atorvastatin Ca 10 mg PO HS - monitor lipids profile # Anemia - hgb: 9.8 - occult blood negative - monitor H/H trend # Hypothyroidism - levothyroxine 125mcg QD - follow up TSH # BPH - flomax 0.4 mg HS # Schizoaffective disorder - hold depakote, olanzapine, Loxapine as patient is lethargic Dispo: spoke to ICU resident discuss for evaluation/ admission VTE: Heparin SQ TID FEN: NPO ( AMS), IV fluids, correct lytes Visit type - Emergency Visit Emergency Visit: Yes ED Registration Date: 06/02/19 Care time: The patient presented to the Emergency Department on the above date and was hospitalized for further evaluation of their emergent condition. - New Patient This patient is new to me today: Yes Date on this admission: 06/03/19 - Critical Care Critical Care patient: Yes Total Critical Care Time (in minutes): 32 Critical Care Statement: The care of this patient involved high complexity decision making to prevent further life threatening deterioration of the patient 's condition and/or to evaluate & treat vital organ system(s) failure or risk of failure.
[2019-06-03 03:35] LABS: ALBUMIN 1.8 g/dl (3.4-5.0); BILIRUBIN,TOTAL 0.7 mg/dL (0.2-1); CALCIUM 8.1 mg/dL (8.5-10.1); CREATININE 6.1 mg/dL (0.55-1.3); POTASSIUM 5.2 mmol/L (3.5-5.1); TOT PROT 5.6 g/dl (6.4-8.2)
[2019-06-03 03:38] LABS: BLOOD UREA NITROGEN 129.8 mg/dL (7-18)
[2019-06-03] MEDS ORDERED: SODIUM CHLORIDE 0.45% 1,000 ML IV SCH (04:30)
--- NOTE | 2019-06-03 04:38 | CONSULT ---
Consultation: REQUESTING PROVIDER: Hermilo Ureña NP CONSULT REQUEST: We have been asked to medically evaluate this patient for acute on chronic renal failure. HISTORY OF PRESENT ILLNESS: 79M w/ pmhx of HTN, HLD, CKD Stage 4, Anemia, Hypothyroidism, Schizoaffective Disorder,ASHD, BPH BIBVanda from [facility] presents in the ED for lethargy, fever and desaturation. Per records, pt was found to be febrile in the CO at 102, given IV Tylenol and 1 dose of Zosyn for empiric treatment of possible infection. Upon arrival to the ED, pt was febrile 100.3 rectally and given IV Vancomycin. He was found to be awake, but not appropriately answering questions , however was oriented to self. CXR and head CT were both negative for acute pathology. UA was also neg. WBC 14.2, corrected Na 151 with repeat at 160, K+ 5.5 with repeat at 5.2, BUN 114.4 with repeat at 129.8, Cr 5.6 with repeat at 6.1. Pt was given NS x1L in the ED. REVIEW OF SYSTEMS: Unable to obtain as pt was incomprehensible. PHYSICAL EXAMINATION Vital Signs - 24 hr 06/02/19 06/03/19 20:10 03:01 Temperature 100.3 F H Pulse Rate 103 H Pulse Rate [ 80 Right Radial] Respiratory 25 H 19 Rate Blood Pressure 101/61 Blood Pressure 99/61 [Left Arm] O2 Sat by Pulse 100 99 Oximetry (%) GENERAL: Awake, alert, oriented to self. Disheveled. HEENT: EOMI. Dry mucus membranes, poor oral hygiene. Dry costello/white thick secretions seen on tongue. NECK: Normal range of motion, supple without lymphadenopathy, JVD, or masses. LUNGS: Poor respiratory effort. No visible accessory muscle use noted. HEART: RRR, normal S1, S2. No murmurs noted. ABDOMEN: Soft, nontender, not distended, normoactive bowel sounds, no guarding, no rebound, no masses. No hepatomegaly or splenomegaly. MUSCULOSKELETAL: Moves extremities spontaneously. UPPER EXTREMITIES: 2+ pulses, warm, well-perfused. No cyanosis. No clubbing. Cap refill <2 seconds. No peripheral edema. R arm in sling with limited ROM due to pain. LOWER EXTREMITIES: 2+ dorsalis pedis pulses, warm, well-perfused. No calf tenderness. No peripheral edema. NEUROLOGICAL: Unable to complete neuro exam. b/l UE tremors. PSYCHIATRIC: Cooperative. Good eye contact. Appropriate mood and affect. SKIN: B/l UE cool to touch. Laboratory Results - last 24 hr 06/02/19 06/02/19 06/02/19 20:44 20:44 20:44 WBC 14.2 H RBC 2.98 L Hgb 9.8 L Hct 31.5 L MCV 105.8 H MCH 32.8 MCHC 31.0 L RDW 15.0 Plt Count 253 D MPV 9.7 Absolute Neuts (auto) 9.1 H Neutrophils % 64.2 Lymphocytes % 16.6 D Monocytes % 18.6 H Eosinophils % 0.0 D Basophils % 0.6 Nucleated RBC % 1 H Hypochromia 1+ Platelet Estimate Adequate Anisocytosis 2+ Macrocytosis 2+ PT with INR 14.10 H INR 1.19 H PTT (Actin FS) 33.1 Anticoagulation Therapy Puncture Site ABG pH ABG pCO2 at Pt Temp ABG pO2 at Pt Temp ABG HCO3 ABG O2 Sat (Measured) ABG O2 Content ABG Base Excess Lane Test VBG pH POC VBG pCO2 POC VBG pO2 VBG HCO3 VBG O2 Sat (Abhi) VBG Base Excess Carboxyhemoglobin Methemoglobin O2 Delivery Device Oxygen Flow Rate Vent Mode Vent Rate Mechanical Rate Pressure Support Vent Sodium Potassium Chloride Carbon Dioxide Anion Gap BUN Creatinine Est GFR (CKD-EPI)AfAm Est GFR (CKD-EPI)NonAf POC Glucometer Random Glucose Lactic Acid Calcium Total Bilirubin AST ALT Alkaline Phosphatase Troponin I 0.02 Total Protein Albumin Urine Color Urine Appearance Urine pH Ur Specific Christmas Urine Protein Urine Glucose (UA) Urine Ketones Urine Blood Urine Nitrite Urine Bilirubin Urine Urobilinogen Ur Leukocyte Esterase Stool Occult Blood Influenza A (Rapid) Influenza B (Rapid) 06/02/19 06/02/19 06/02/19 20:44 20:44 21:00 WBC RBC Hgb Hct MCV MCH MCHC RDW Plt Count MPV Absolute Neuts (auto) Neutrophils % Lymphocytes % Monocytes % Eosinophils % Basophils % Nucleated RBC % Hypochromia Platelet Estimate Anisocytosis Macrocytosis PT with INR INR PTT (Actin FS) Anticoagulation Therapy Puncture Site ABG pH ABG pCO2 at Pt Temp ABG pO2 at Pt Temp ABG HCO3 ABG O2 Sat (Measured) ABG O2 Content ABG Base Excess Lane Test VBG pH 7.31 POC VBG pCO2 43.8 POC VBG pO2 < 49 H VBG HCO3 21.6 L VBG O2 Sat (Abhi) 77.6 VBG Base Excess -3.9 L Carboxyhemoglobin Methemoglobin O2 Delivery Device Oxygen Flow Rate Vent Mode Vent Rate Mechanical Rate Pressure Support Vent Sodium Cancelled Potassium Cancelled Chloride Cancelled Carbon Dioxide Cancelled Anion Gap Cancelled BUN Cancelled Creatinine Cancelled Est GFR (CKD-EPI)AfAm Cancelled Est GFR (CKD-EPI)NonAf Cancelled POC Glucometer Random Glucose Cancelled Lactic Acid 1.5 Calcium Cancelled Total Bilirubin Cancelled AST Cancelled ALT Cancelled Alkaline Phosphatase Cancelled Troponin I Total Protein Cancelled Albumin Cancelled Urine Color Urine Appearance Urine pH Ur Specific Christmas Urine Protein Urine Glucose (UA) Urine Ketones Urine Blood Urine Nitrite Urine Bilirubin Urine Urobilinogen Ur Leukocyte Esterase Stool Occult Blood Influenza A (Rapid) Influenza B (Rapid) 06/02/19 06/02/19 06/02/19 21:00 21:38 22:08 WBC RBC Hgb Hct MCV MCH MCHC RDW Plt Count MPV Absolute Neuts (auto) Neutrophils % Lymphocytes % Monocytes % Eosinophils % Basophils % Nucleated RBC % Hypochromia Platelet Estimate Anisocytosis Macrocytosis PT with INR INR PTT (Actin FS) Anticoagulation Therapy No Result Required. Puncture Site No Result Required. ABG pH 7.35 ABG pCO2 at Pt Temp 37.2 ABG pO2 at Pt Temp 74.5 L ABG HCO3 20.2 L ABG O2 Sat (Measured) 93.7 L ABG O2 Content 13.4 ABG Base Excess -4.[address] Test No Result Required. VBG pH POC VBG pCO2 POC VBG pO2 VBG HCO3 VBG O2 Sat (Abhi) VBG Base Excess Carboxyhemoglobin 1.1 Methemoglobin < 1.0 O2 Delivery Device No Result Required. Oxygen Flow Rate No Result Required. Vent Mode No Result Required. Vent Rate No Result Required. Mechanical Rate No Result Required. Pressure Support Vent No Result Required. Sodium Potassium Chloride Carbon Dioxide Anion Gap BUN Creatinine Est GFR (CKD-EPI)AfAm Est GFR (CKD-EPI)NonAf POC Glucometer Random Glucose Lactic Acid Calcium Total Bilirubin AST ALT Alkaline Phosphatase Troponin I Total Protein Albumin Urine Color Yellow Urine Appearance Clear Urine pH 5.0 D Ur Specific Christmas 1.016 Urine Protein Trace Urine Glucose (UA) Negative Urine Ketones Negative Urine Blood Negative Urine Nitrite Negative Urine Bilirubin Negative Urine Urobilinogen 0.2 Ur Leukocyte Esterase Negative Stool Occult Blood Influenza A (Rapid) Negative Influenza B (Rapid) Negative 06/02/19 06/02/19 06/03/19 22:33 22:40 02:16 WBC RBC Hgb Hct MCV MCH MCHC RDW Plt Count MPV Absolute Neuts (auto) Neutrophils % Lymphocytes % Monocytes % Eosinophils % Basophils % Nucleated RBC % Hypochromia Platelet Estimate Anisocytosis Macrocytosis PT with INR INR PTT (Actin FS) Anticoagulation Therapy Puncture Site ABG pH ABG pCO2 at Pt Temp ABG pO2 at Pt Temp ABG HCO3 ABG O2 Sat (Measured) ABG O2 Content ABG Base Excess Lane Test VBG pH POC VBG pCO2 POC VBG pO2 VBG HCO3 VBG O2 Sat (Abhi) VBG Base Excess Carboxyhemoglobin Methemoglobin O2 Delivery Device Oxygen Flow Rate Vent Mode Vent Rate Mechanical Rate Pressure Support Vent Sodium 145 Potassium 5.5 H Chloride 115 H Carbon Dioxide 21 Anion Gap 9 BUN 114.4 H* Creatinine 5.6 H Est GFR (CKD-EPI)AfAm 10.44 Est GFR (CKD-EPI)NonAf 9.00 POC Glucometer 116 Random Glucose 546 H* Lactic Acid Calcium 7.3 L Total Bilirubin 1.1 H AST 57 H ALT 28 Alkaline Phosphatase 64 Troponin I Total Protein 5.1 L Albumin 1.5 L Urine Color Urine Appearance Urine pH Ur Specific Christmas Urine Protein Urine Glucose (UA) Urine Ketones Urine Blood Urine Nitrite Urine Bilirubin Urine Urobilinogen Ur Leukocyte Esterase Stool Occult Blood Negative Influenza A (Rapid) Influenza B (Rapid) 06/03/19 02:57 WBC RBC Hgb Hct MCV MCH MCHC RDW Plt Count MPV Absolute Neuts (auto) Neutrophils % Lymphocytes % Monocytes % Eosinophils % Basophils % Nucleated RBC % Hypochromia Platelet Estimate Anisocytosis Macrocytosis PT with INR INR PTT (Actin FS) Anticoagulation Therapy Puncture Site ABG pH ABG pCO2 at Pt Temp ABG pO2 at Pt Temp ABG HCO3 ABG O2 Sat (Measured) ABG O2 Content ABG Base Excess Lane Test VBG pH POC VBG pCO2 POC VBG pO2 VBG HCO3 VBG O2 Sat (Abhi) VBG Base Excess Carboxyhemoglobin Methemoglobin O2 Delivery Device Oxygen Flow Rate Vent Mode Vent Rate Mechanical Rate Pressure Support Vent Sodium 160 H Potassium 5.2 H Chloride 130 H Carbon Dioxide 22 Anion Gap 8 BUN 129.8 H* Creatinine 6.1 H Est GFR (CKD-EPI)AfAm 9.41 Est GFR (CKD-EPI)NonAf 8.12 POC Glucometer Random Glucose 128 H Lactic Acid Calcium 8.1 L Total Bilirubin 0.7 AST 49 H ALT 31 Alkaline Phosphatase 72 Troponin I Total Protein 5.6 L Albumin 1.8 L Urine Color Urine Appearance Urine pH Ur Specific Christmas Urine Protein Urine Glucose (UA) Urine Ketones Urine Blood Urine Nitrite Urine Bilirubin Urine Urobilinogen Ur Leukocyte Esterase Stool Occult Blood Influenza A (Rapid) Influenza B (Rapid) ASSESSMENT/PLAN: 79M w/ pmhx of HTN, HLD, CKD Stage 4, Anemia, Hypothyroidism, Schizoaffective Disorder, BPH LAURIE from [facility] presents in the ED for lethargy, fever and desaturation. Neuro/Psych Acute Metabolic Encephalopathy likely 2/2 hypovolemia/dehydration Schizoaffective disorder -AAOx1, oriented to self. No known dementia per previous notes, however pt noted to have confusion during previous admission 1 week ago. -Cont to monitor mental status -Has known essential tremors at baseline -Currently on Olanzapine, Gabapentin, Depakote, Loxapine Pulm Acute Hypoxic Respiratory Failure 2/2 ? HCAP -Currently on 3L NC satting at 99% -ABG showed pO2 74.5 -Given empiric treatment for HCAP; IV Vanc/Zosyn CV Hx of HTN/HLD -Cont home ASA 81, Lipitor 10 Renal BPH AFTAB on CKD, Stage 4 -Currently on Flomax 0.4 -Urine lytes/Uosm Heme Anemia, unclear etiology -FOBT neg -Recommend iron studies/B12/Folate -Currently on FeSO4 Endo Chronic Hyponatremia Hypothyroidism -Initial corrected Na 151, given 1L NS bolus, repeat 160 -FWD 6.1 L with rate of 105-110 ml/hr -Recommend IV fluid hydration with NS, trend BMP with goal Na correction of no more than 10-12 mEq/24hr -Cont home Synthroid 125 ID Sepsis, unclear etiology -CXR and UA neg; CTAP ([facility] prelim read) showed retained stool, gallstone with no wall thickening or pericholecystic fluid; circumferential thickening of lower rectum and mild perirectal edema possibly 2/2 stercoral proctitis -Head CT neg -BCx/UCx pending -Given 1 dose of IV Vanc/Zosyn for empiric treatment Ortho R Proximal Humeral Fx -Seen by ortho during prior admission, recommend OP follow up, repeat x-ray -Pain control -Cont sling immobilization Dispo: Patient is not an ICU candidate at this time. Please re-consult if pt needs intubation or pressors. Thank you for this consultative opportunity. Visit type - Emergency Visit Emergency Visit: Yes ED Registration Date: 06/02/19 Care time: The patient presented to the Emergency Department on the above date and was hospitalized for further evaluation of their emergent condition. - New Patient This patient is new to me today: Yes Date on this admission: 06/03/19 - Critical Care Critical Care patient: No ATTENDING PHYSICIAN STATEMENT I saw and evaluated the patient. I reviewed the resident's note and discussed the case with the resident. I agree with the resident's findings and plan as documented. SUBJECTIVE: OBJECTIVE: ASSESSMENT AND PLAN:
[2019-06-03] MEDS ORDERED: LEVOTHYROXINE NA 125 MCG TABLET (FP) PO SCH (07:00)
[2019-06-03] MEDS: LEVOTHYROXINE NA 125 MCG TABLET (FP) PO SCH (07:14)
[2019-06-03] MEDS: TAMSULOSIN HCL 0.4 MG CAP PO SCH (08:30)
--- NOTE | 2019-06-03 09:59 | PN ---
Progress Note (short form) - Note Progress Note: pt examined in ER not coherant confused awake but drowsy no SOB no chest pain Vital Signs - 24 hr 06/02/19 06/03/19 06/03/19 20:10 03:01 04:45 Temperature 100.3 F H 98.5 F Pulse Rate 103 H Pulse Rate [ 80 Right Radial] Respiratory 25 H 19 Rate Blood Pressure 101/61 Blood Pressure 99/61 [Left Arm] O2 Sat by Pulse 100 99 Oximetry (%) 06/03/19 06/03/19 06/03/19 06:06 06:17 09:00 Temperature 98.2 F Pulse Rate Pulse Rate [ 74 77 80 Right Radial] Respiratory 18 18 18 Rate Blood Pressure Blood Pressure 98/64 98/64 93/60 [Left Arm] O2 Sat by Pulse 97 100 Oximetry (%) Current Medications Generic Name Dose Route Start Last Admin Trade Name Freq PRN Reason Stop Dose Admin Acetaminophen 650 mg 06/03/19 06:14 Tylenol - PO Q6H PRN PAIN LEVEL 1-5 Atorvastatin Calcium 10 mg 06/03/19 22:00 Lipitor - PO HS GENESIS Heparin Sodium (Porcine) 5,000 unit 06/03/19 14:00 Heparin - SQ TID GENESIS Sodium Chloride 1,000 mls @ 125 mls/hr 06/03/19 04:30 06/03/19 04:43 1/2 Normal Saline IV 125 mls/hr ASDIR GENESIS Administration Piperacillin Sod/Tazobactam 50 mls @ 100 mls/hr 06/04/19 10:00 Sod 2.25 gm/ Dextrose IVPB Q8H-IV GENESIS Protocol Piperacillin Sod/Tazobactam 50 mls @ 100 mls/hr 06/03/19 10:00 Sod 2.25 gm/ Dextrose IVPB 06/04/19 02:29 Q8H-IV GENESIS Protocol Levothyroxine Sodium 125 mcg 06/03/19 07:00 06/03/19 07:14 Synthroid - PO 125 mcg DAILY@0700 GENESIS Administration Tamsulosin HCl 0.4 mg 06/03/19 08:30 Flomax - PO DAILY@0830 [facility] Laboratory Results - last 24 hr 06/02/19 06/02/19 06/02/19 20:44 20:44 20:44 WBC 14.2 H RBC 2.98 L Hgb 9.8 L Hct 31.5 L MCV 105.8 H MCH 32.8 MCHC 31.0 L RDW 15.0 Plt Count 253 D MPV 9.7 Absolute Neuts (auto) 9.1 H Neutrophils % 64.2 Lymphocytes % 16.6 D Monocytes % 18.6 H Eosinophils % 0.0 D Basophils % 0.6 Nucleated RBC % 1 H Hypochromia 1+ Platelet Estimate Adequate Anisocytosis 2+ Macrocytosis 2+ PT with INR 14.10 H INR 1.19 H PTT (Actin FS) 33.1 Anticoagulation Therapy Puncture Site ABG pH ABG pCO2 at Pt Temp ABG pO2 at Pt Temp ABG HCO3 ABG O2 Sat (Measured) ABG O2 Content ABG Base Excess Lane Test VBG pH POC VBG pCO2 POC VBG pO2 VBG HCO3 VBG O2 Sat (Abhi) VBG Base Excess Carboxyhemoglobin Methemoglobin O2 Delivery Device Oxygen Flow Rate Vent Mode Vent Rate Mechanical Rate Pressure Support Vent Sodium Potassium Chloride Carbon Dioxide Anion Gap BUN Creatinine Est GFR (CKD-EPI)AfAm Est GFR (CKD-EPI)NonAf POC Glucometer Random Glucose Lactic Acid Calcium Total Bilirubin AST ALT Alkaline Phosphatase Troponin I 0.02 Total Protein Albumin Triglycerides Cholesterol Total LDL Cholesterol HDL Cholesterol Urine Color Urine Appearance Urine pH Ur Specific [place] Urine Protein Urine Glucose (UA) Urine Ketones Urine Blood Urine Nitrite Urine Bilirubin Urine Urobilinogen Ur Leukocyte Esterase Stool Occult Blood Influenza A (Rapid) Influenza B (Rapid) 06/02/19 06/02/19 06/02/19 20:44 20:44 21:00 WBC RBC Hgb Hct MCV MCH MCHC RDW Plt Count MPV Absolute Neuts (auto) Neutrophils % Lymphocytes % Monocytes % Eosinophils % Basophils % Nucleated RBC % Hypochromia Platelet Estimate Anisocytosis Macrocytosis PT with INR INR PTT (Actin FS) Anticoagulation Therapy Puncture Site ABG pH ABG pCO2 at Pt Temp ABG pO2 at Pt Temp ABG HCO3 ABG O2 Sat (Measured) ABG O2 Content ABG Base Excess Lane Test VBG pH 7.31 POC VBG pCO2 43.8 POC VBG pO2 < 49 H VBG HCO3 21.6 L VBG O2 Sat (Abhi) 77.6 VBG Base Excess -3.9 L Carboxyhemoglobin Methemoglobin O2 Delivery Device Oxygen Flow Rate Vent Mode Vent Rate Mechanical Rate Pressure Support Vent Sodium Cancelled Potassium Cancelled Chloride Cancelled Carbon Dioxide Cancelled Anion Gap Cancelled BUN Cancelled Creatinine Cancelled Est GFR (CKD-EPI)AfAm Cancelled Est GFR (CKD-EPI)NonAf Cancelled POC Glucometer Random Glucose Cancelled Lactic Acid 1.5 Calcium Cancelled Total Bilirubin Cancelled AST Cancelled ALT Cancelled Alkaline Phosphatase Cancelled Troponin I Total Protein Cancelled Albumin Cancelled Triglycerides Cholesterol Total LDL Cholesterol HDL Cholesterol Urine Color Urine Appearance Urine pH Ur Specific [place] Urine Protein Urine Glucose (UA) Urine Ketones Urine Blood Urine Nitrite Urine Bilirubin Urine Urobilinogen Ur Leukocyte Esterase Stool Occult Blood Influenza A (Rapid) Influenza B (Rapid) 06/02/19 06/02/19 06/02/19 21:00 21:38 22:08 WBC RBC Hgb Hct MCV MCH MCHC RDW Plt Count MPV Absolute Neuts (auto) Neutrophils % Lymphocytes % Monocytes % Eosinophils % Basophils % Nucleated RBC % Hypochromia Platelet Estimate Anisocytosis Macrocytosis PT with INR INR PTT (Actin FS) Anticoagulation Therapy No Result Required. Puncture Site No Result Required. ABG pH 7.35 ABG pCO2 at Pt Temp 37.2 ABG pO2 at Pt Temp 74.5 L ABG HCO3 20.2 L ABG O2 Sat (Measured) 93.7 L ABG O2 Content 13.4 ABG Base Excess -4.[address] Test No Result Required. VBG pH POC VBG pCO2 POC VBG pO2 VBG HCO3 VBG O2 Sat (Abhi) VBG Base Excess Carboxyhemoglobin 1.1 Methemoglobin < 1.0 O2 Delivery Device No Result Required. Oxygen Flow Rate No Result Required. Vent Mode No Result Required. Vent Rate No Result Required. Mechanical Rate No Result Required. Pressure Support Vent No Result Required. Sodium Potassium Chloride Carbon Dioxide Anion Gap BUN Creatinine Est GFR (CKD-EPI)AfAm Est GFR (CKD-EPI)NonAf POC Glucometer Random Glucose Lactic Acid Calcium Total Bilirubin AST ALT Alkaline Phosphatase Troponin I Total Protein Albumin Triglycerides Cholesterol Total LDL Cholesterol HDL Cholesterol Urine Color Yellow Urine Appearance Clear Urine pH 5.0 D Ur Specific [place] 1.016 Urine Protein Trace Urine Glucose (UA) Negative Urine Ketones Negative Urine Blood Negative Urine Nitrite Negative Urine Bilirubin Negative Urine Urobilinogen 0.2 Ur Leukocyte Esterase Negative Stool Occult Blood Influenza A (Rapid) Negative Influenza B (Rapid) Negative 12/17/19 12/17/19 12/18/19 22:33 22:40 02:16 WBC RBC Hgb Hct MCV MCH MCHC RDW Plt Count MPV Absolute Neuts (auto) Neutrophils % Lymphocytes % Monocytes % Eosinophils % Basophils % Nucleated RBC % Hypochromia Platelet Estimate Anisocytosis Macrocytosis PT with INR INR PTT (Actin FS) Anticoagulation Therapy Puncture Site ABG pH ABG pCO2 at Pt Temp ABG pO2 at Pt Temp ABG HCO3 ABG O2 Sat (Measured) ABG O2 Content ABG Base Excess Lane Test VBG pH POC VBG pCO2 POC VBG pO2 VBG HCO3 VBG O2 Sat (Abhi) VBG Base Excess Carboxyhemoglobin Methemoglobin O2 Delivery Device Oxygen Flow Rate Vent Mode Vent Rate Mechanical Rate Pressure Support Vent Sodium 145 Potassium 5.5 H Chloride 115 H Carbon Dioxide 21 Anion Gap 9 BUN 114.4 H* Creatinine 5.6 H Est GFR (CKD-EPI)AfAm 10.44 Est GFR (CKD-EPI)NonAf 9.00 POC Glucometer 116 Random Glucose 546 H* Lactic Acid Calcium 7.3 L Total Bilirubin 1.1 H AST 57 H ALT 28 Alkaline Phosphatase 64 Troponin I Total Protein 5.1 L Albumin 1.5 L Triglycerides Cholesterol Total LDL Cholesterol HDL Cholesterol Urine Color Urine Appearance Urine pH Ur Specific [place] Urine Protein Urine Glucose (UA) Urine Ketones Urine Blood Urine Nitrite Urine Bilirubin Urine Urobilinogen Ur Leukocyte Esterase Stool Occult Blood Negative Influenza A (Rapid) Influenza B (Rapid) 06/03/19 02:57 WBC RBC Hgb Hct MCV MCH MCHC RDW Plt Count MPV Absolute Neuts (auto) Neutrophils % Lymphocytes % Monocytes % Eosinophils % Basophils % Nucleated RBC % Hypochromia Platelet Estimate Anisocytosis Macrocytosis PT with INR INR PTT (Actin FS) Anticoagulation Therapy Puncture Site ABG pH ABG pCO2 at Pt Temp ABG pO2 at Pt Temp ABG HCO3 ABG O2 Sat (Measured) ABG O2 Content ABG Base Excess Lane Test VBG pH POC VBG pCO2 POC VBG pO2 VBG HCO3 VBG O2 Sat (Abhi) VBG Base Excess Carboxyhemoglobin Methemoglobin O2 Delivery Device Oxygen Flow Rate Vent Mode Vent Rate Mechanical Rate Pressure Support Vent Sodium 160 H Potassium 5.2 H Chloride 130 H Carbon Dioxide 22 Anion Gap 8 BUN 129.8 H* Creatinine 6.1 H Est GFR (CKD-EPI)AfAm 9.41 Est GFR (CKD-EPI)NonAf 8.12 POC Glucometer Random Glucose 128 H Lactic Acid Calcium 8.1 L Total Bilirubin 0.7 AST 49 H ALT 31 Alkaline Phosphatase 72 Troponin I Total Protein 5.6 L Albumin 1.8 L Triglycerides 297 H Cholesterol 116 Total LDL Cholesterol 59 HDL Cholesterol 9 L Urine Color Urine Appearance Urine pH Ur Specific [place] Urine Protein Urine Glucose (UA) Urine Ketones Urine Blood Urine Nitrite Urine Bilirubin Urine Urobilinogen Ur Leukocyte Esterase Stool Occult Blood Influenza A (Rapid) Influenza B (Rapid) S1 S2 RRR Lungs decreased Abd- soft, obese, NT edema+ Right arm - edema-- arm in sling A/P Acute on CKD Hyperkalemia Metabolic encephalopathy Rt humerus fracture sepsis -- henley was placed -- monitor out put -- iv fluids -- iv antibiotics -- pt baseline renal function around 2.5 -- pt was lethargic yesterday and was given ib fluid bolus and Vanco 1 gm,along with zosyn in [place] prior to transferring to ER == did not receive NSAIDS -- check renal and bladder sono -- renal eval -- condition guarded Problem List - Problems (1) Metabolic encephalopathy Code(s): G93.41 - METABOLIC ENCEPHALOPATHY (2) AFTAB (acute kidney injury) Code(s): N17.9 - ACUTE KIDNEY FAILURE, UNSPECIFIED (3) AMS (altered mental status) Code(s): R41.82 - ALTERED MENTAL STATUS, UNSPECIFIED (4) Anemia Code(s): D64.9 - ANEMIA, UNSPECIFIED (5) Bipolar disease, chronic Code(s): F31.9 - BIPOLAR DISORDER, UNSPECIFIED (6) Chronic renal failure, stage 4 (severe) Code(s): N18.4 - CHRONIC KIDNEY DISEASE, STAGE 4 (SEVERE) (7) Displaced fracture of right humerus Code(s): S42.301A - UNSP FRACTURE OF SHAFT OF HUMERUS, RIGHT ARM, INIT
[2019-06-03] MEDS ORDERED: PIPERACILLIN/TAZOB 2.25 GM 2.25 GM in DEXTROSE 5%-WATER - 50 ML IVPB SCH (10:00)
[2019-06-03] MEDS ORDERED: SODIUM POLYSTYRENE SULFONATE 15 GM/60 ML BOTTLE PO ONE (10:32)
[2019-06-03] MEDS ORDERED: PIPERACILLIN/TAZOB 2.25 GM 2.25 GM/50 ML BAG IVPB ONE ×2 (10:47→18:34)
--- NOTE | 2019-06-03 12:20 | CONSULT ---
Consult - text type - Consultation Consultation Note: Renal consult for AFTAB on CKD This is a 79 year old gentleman with history of CKD stage 4 (baseline Cr 2.5-2.9 ), Schizoaffective disorder, hypertension, hyperlipidemia, anemia, BPH, CAD who [place] with fever and desaturation and admitted for sepsis due to PNA with worsening renal function. Seen and examined in the ER. Lethargic but arouseable and attempts to answer questions. Is confused. Baseline MS as per primary, awake and alert and able to make needs known but is confused and not able to carry a conversation. History obtained from medical records. Was febrile at [place] with hypoxia. S/p recent admission for syncope with Cr of 2.9. Henley inserted and pt with small amount of yellow urine. BP is marginal. Currently on NC O2. PMHx: as above Allergies: NKDA Family Hx: NC Social Hx: No T/A/D ROS: as per HPI Home Medications Medication Instructions Recorded Aspirin [ASA -] 1 tab PO DAILY 08/19/18 Divalproex [Depakote -] 1,000 mg PO BID 08/19/18 Gabapentin 100 mg PO BID 08/19/18 Levothyroxine [Synthroid -] 125 mcg PO DAILY 08/19/18 Melatonin 5 mg PO HS 08/19/18 Olanzapine 10 mg PO DAILY 08/19/18 Sennosides [Senna] 8.6 mg PO HS 08/19/18 Tamsulosin HCl 0.4 cap PO HS 08/19/18 Ferrous Sulfate 325 mg PO DAILY 09/30/18 Atorvastatin Ca [Lipitor] 10 mg PO HS 05/26/19 Loxapine Succinate [Loxapine] 10 mg PO BID 05/26/19 Acetaminophen 325 mg PO PRN PRN 06/02/19 Acetaminophen [Tylenol -] 500 mg PO Q8H PRN 06/02/19 Ketoconazole 2% Shampoo [Nizoral 1 applic TP WEEKLY 06/02/19 2% Shampoo -] Oseltamivir Phosphate [Tamiflu] 30 mg PO Q2D 06/02/19 Vital Signs Temperature 98.2 F 06/03/19 06:17 Pulse Rate 80 06/03/19 09:00 Respiratory Rate 18 06/03/19 09:00 Blood Pressure 93/60 06/03/19 09:00 O2 Sat by Pulse Oximetry (%) 100 06/03/19 06:17 Intake & Output 05/31/19 06/01/19 06/02/19 06/03/19 23:59 23:59 23:59 23:59 Output Total 900 Balance -900 Weight 84.912 kg 87.77 kg No distress, confused, groggy dry mucus membranes neck supple, no JVD RRR, no M/R Meir BS, no rales or wheeze soft, NT/ND, no rebound or guarding no CVA tenderness no bladder distension, henley in place no LE edema, clubbing or cyanosis CBC, BMP 06/02/19 20:44 06/03/19 02:57 Laboratory Tests 06/02/19 06/02/19 06/03/19 21:38 22:33 02:57 Calcium 8.1 L Albumin 1.8 L Urine Protein Trace Urine Blood Negative Stool Occult Blood Negative Current Medications Acetaminophen (Tylenol -) 650 mg PO Q6H PRN PRN Reason: PAIN LEVEL 1-5 Atorvastatin Calcium (Lipitor -) 10 mg PO HS [facility] Heparin Sodium (Porcine) (Heparin -) 5,000 unit SQ TID [facility] Sodium Chloride (1/2 Normal Saline) 1,000 mls @ 125 mls/hr IV ASDIR [facility] Last Admin: 06/03/19 04:43 Dose: 125 mls/hr Piperacillin Sod/Tazobactam (Sod 2.25 gm/ Dextrose) 50 mls @ 100 mls/hr IVPB Q8H-IV [facility]; Protocol Piperacillin Sod/Tazobactam (Sod 2.25 gm/ Dextrose) 50 mls @ 100 mls/hr IVPB Q8H-IV [facility]; Protocol Stop: 06/04/19 02:29 Insulin Aspart (Novolog Vial Sliding Scale -) 1 vial SQ ACHS [facility]; Protocol Levothyroxine Sodium (Synthroid -) 125 mcg PO DAILY@0700 [facility] Last Admin: 06/03/19 07:14 Dose: 125 mcg Tamsulosin HCl (Flomax -) 0.4 mg PO DAILY@0830 [facility] 79 year old gentleman with history of CKD stage 4 (baseline Cr 2.5-2.9), Schizoaffective disorder, hypertension, hyperlipidemia, anemia, BPH, CAD who [place] with fever and desaturation and admitted for sepsis due to PNA with worsening renal function. 1. Acute kidney injury in setting of sepsis 2. Chronic kidney disease stage 4 3. Sepsis/PNA 4. Hypernatremia 5. Hyperkalemia 6. Hx of BPH 7. Hx of hypertension 8. Hyperlipidemia Suspect that AFTAB due to renal hypovporufsion +/- hypovolemia in setting of sepsis/PNA Check urine studies and renal US No emergent indication for [employer] at this time Would continue aggressive IV hydration with NS at 125cc per hour (ECHO from earlier this year reviewed, normal LVEF) Trend renal function and electrolytes Q12h Give Kayexalate PRN if K > 5.5 Maintain henley for strict I and O Renal diet if able to tolerate feeds Would hydrate with isotonic saline depsite high Na for now given sepsis despite hypernatremia Thank you discussed case with Dr. Andersen. Luis Armando Ruiz DO
--- NOTE | 2019-06-03 12:25 | EKG ---
Test Reason : Blood Pressure : / mmHG Vent. Rate : 097 BPM Atrial Rate : 097 BPM P-R Int : 134 ms QRS Dur : 124 ms QT Int : 376 ms P-R-T Axes : -02 -35 023 degrees QTc Int : 477 ms SINUS RHYTHM WITH PREMATURE ATRIAL COMPLEXES LEFT AXIS DEVIATION RIGHT BUNDLE BRANCH BLOCK VOLTAGE CRITERIA FOR LEFT VENTRICULAR HYPERTROPHY ABNORMAL ECG WHEN COMPARED WITH ECG OF 26-MAY-2019 20:58, T WAVE INVERSION NO LONGER EVIDENT IN ANTERIOR LEADS Confirmed by BRYN RAI MD ([id number]) on 06/03/2019 12:25:26 PM Referred By: Confirmed By:BRYN RAI MD
--- NOTE | 2019-06-03 14:11 | CON.ID ---
Consult Consult Specialty:: infectious diseases Referred by:: helen Reason for Consultation:: ams,confusion,uti - History of Present Illness Chief Complaint: ams History of Present Illness: 79 year old male with PMHx of HTN, HLD, CKD Stage 4, Anemia, Hypothyroidism, Schizoaffective Disorder,ASHD, BPH BIBA from [facility] for being lethargic, febrile to 102 and low O2 saturation. Per records, patient was feeling this way around lunch time which he was found to be febrile for which he was given 1g tylenol. Patient found unresponsive this afternoon around 4-5pm,given IV fluids and a dose of Zosyn around 5pm at [place]. Records also state that patient was not having any urine output this afternoon. Per EMS, patient was saturating in the 80s so he was placed on NRB. Patient examined AMS, unable to provide any information. Respond to tactile stimuli, and moans to some verbal commands. Unable to obtain ROS. Patient was here recently 05/26/19 for right arm humerus fx history obtained from the charts as patient unable to give any history - History Source History Provided By: Medical Record Limitations to Obtaining History: Clinical Condition - Past Medical History Cardio/Vascular: Yes: HTN, Hyperlipdemia, Other (ASHD) Renal/: Yes: BPH Psych: Yes: Schizophrenia Endocrine: Yes: Hypothyroidism - Past Surgical History Past Surgical History: Yes: None - Alcohol/Substance Use Hx Alcohol Use: No History of Substance Use: reports: None - Smoking History Smoking history: Never smoked Have you smoked in the past 12 months: No - Social History ADL: Support Services History of Recent Travel: No Home Medications - Allergies Allergies/Adverse Reactions: Allergies Allergy/AdvReac Type Severity Reaction Status Date / Time No Known Allergies Allergy Verified 06/02/19 23:25 - Home Medications Home Medications: Ambulatory Orders RX: Aspirin [ASA -] 1 tab PO DAILY 08/19/18 RX: Divalproex [Depakote -] 1,000 mg PO BID 08/19/18 RX: Gabapentin 100 mg PO BID 08/19/18 RX: Levothyroxine [Synthroid -] 125 mcg PO DAILY 08/19/18 RX: Melatonin 5 mg PO HS 08/19/18 RX: Olanzapine 10 mg PO DAILY 08/19/18 RX: Sennosides [Senna] 8.6 mg PO HS 08/19/18 RX: Tamsulosin HCl 0.4 cap PO HS 08/19/18 RX: Ferrous Sulfate 325 mg PO DAILY 09/30/18 RX: Atorvastatin Ca [Lipitor] 10 mg PO HS 05/26/19 RX: Loxapine Succinate [Loxapine] 10 mg PO BID 05/26/19 Acetaminophen [Tylenol -] 500 mg PO Q8H PRN 06/02/19 Ketoconazole 2% Shampoo [Nizoral 2% Shampoo -] 1 applic TP WEEKLY 06/02/19 Oseltamivir Phosphate [Tamiflu] 30 mg PO Q2D 06/02/19 RX: Acetaminophen 325 mg PO PRN PRN 06/02/19 Review of Systems Unable to obtain ROS, reason: unable to obtain Physical Exam Vital Signs: Vital Signs Temperature 98.2 F 06/03/19 06:17 Pulse Rate 80 06/03/19 09:00 Respiratory Rate 18 06/03/19 09:00 Blood Pressure 93/60 06/03/19 09:00 O2 Sat by Pulse Oximetry (%) 100 06/03/19 06:17 Constitutional: Yes: Other Cardiovascular: Yes: Regular Rate and Rhythm Respiratory: Yes: Regular, On Nasal O2, Poor Air Entry Gastrointestinal: Yes: Normal Bowel Sounds, Soft Renal/: Yes: Gracia Present Musculoskeletal: Yes: WNL Extremities: Yes: WNL Neurological: Yes: Lethargy, Other Psychiatric: Yes: Other Labs: CBC, BMP 06/02/19 20:44 06/03/19 02:57 Imaging - Results Chest X-ray: Report Reviewed, Image Reviewed Cat Scan: Report Reviewed, Image Reviewed Assessment/Plan Problem List - Problems (1) Sepsis Code(s): A41.9 - SEPSIS, UNSPECIFIED ORGANISM Qualifiers: Sepsis type: sepsis due to unspecified organism Sepsis acute organ dysfunction status: with acute organ dysfunction Severe sepsis acute organ dysfunction type: acute renal failure Acute renal failure type: unspecified Severe sepsis shock status: without septic shock Qualified Code(s): A41.9 - Sepsis, unspecified organism; R65.20 - Severe sepsis without septic shock; N17.9 - Acute kidney failure, unspecified (2) AMS (altered mental status) Code(s): R41.82 - ALTERED MENTAL STATUS, UNSPECIFIED (3) AFTAB (acute kidney injury) Code(s): N17.9 - ACUTE KIDNEY FAILURE, UNSPECIFIED (4) Hyperglycemia Code(s): R73.9 - HYPERGLYCEMIA, UNSPECIFIED (5) Renal failure (ARF), acute on chronic Code(s): N17.9 - ACUTE KIDNEY FAILURE, UNSPECIFIED; N18.9 - CHRONIC KIDNEY DISEASE, UNSPECIFIED (6) HTN (hypertension) Code(s): I10 - ESSENTIAL (PRIMARY) HYPERTENSION (7) HLD (hyperlipidemia) Code(s): E78.5 - HYPERLIPIDEMIA, UNSPECIFIED (8) Anemia Code(s): D64.9 - ANEMIA, UNSPECIFIED (9) Hypothyroidism Code(s): E03.9 - HYPOTHYROIDISM, UNSPECIFIED (10) Schizo affective schizophrenia Code(s): F25.9 - SCHIZOAFFECTIVE DISORDER, UNSPECIFIED (11) BPH (benign prostatic hyperplasia) Code(s): N40.0 - BENIGN PROSTATIC HYPERPLASIA WITHOUT LOWER URINRY TRACT SYMP (12) Hyperkalemia Code(s): E87.5 - HYPERKALEMIA (13) Hypernatremia Code(s): E87.0 - HYPEROSMOLALITY AND HYPERNATREMIA 14 gm positive bacteremia 15 uti plan will start on abx asp precautions hydration await for cx reports rest as per rosa maria team
[2019-06-03] MEDS: INSULIN SLIDING SCALE (NOVOLOG) 1 VIAL SQ SCH ×3 (15:26→23:10)
[2019-06-03] MEDS: HEPARIN NA (PORCINE) 5,000 UNITS/ML 1ML VIAL SQ SCH ×2 (15:28→22:13)
[2019-06-03] MEDS: PIPERACILLIN/TAZOB 2.25 GM 2.25 GM in DEXTROSE 5%-WATER - 50 ML IVPB SCH (18:49)
[2019-06-03 21:36] LABS: CALCIUM 8.1 mg/dL (8.5-10.1); CREATININE 5.3 mg/dL (0.55-1.3); POTASSIUM 4.8 mmol/L (3.5-5.1)
[2019-06-03] MEDS ORDERED: TAMSULOSIN HCL 0.4 MG CAP PO SCH (22:00)
[2019-06-03] MEDS: ATORVASTATIN CA 10 MG TABLET (FP) PO SCH (22:45)
[2019-06-03 23:58] LABS: CREATININE 5.1 mg/dL (0.55-1.3); POTASSIUM 4.9 mmol/L (3.5-5.1)
[2019-06-04 00:01] LABS: BLOOD UREA NITROGEN 115.6 mg/dL (7-18)
[2019-06-04] MEDS ORDERED: DEXTROSE 5%-WATER - 1,000 ML IV SCH (00:45)
[2019-06-04] MEDS ORDERED: PIPERACILLIN/TAZOBACTAM 2.25 GM VIAL IVPB ONE ×3 (01:52→17:25)
[2019-06-04] MEDS ORDERED: DEXTROSE 5%-WATER - 50 ML IVPB ONE ×3 (01:52→17:25)
[2019-06-04] MEDS: PIPERACILLIN/TAZOB 2.25 GM 2.25 GM in DEXTROSE 5%-WATER - 50 ML IVPB SCH ×3 (02:50→17:40)
[2019-06-04] MEDS: INSULIN SLIDING SCALE (NOVOLOG) 1 VIAL SQ SCH ×4 (06:42→23:50)
[2019-06-04] MEDS: HEPARIN NA (PORCINE) 5,000 UNITS/ML 1ML VIAL SQ SCH ×3 (06:42→23:50)
[2019-06-04] MEDS: LEVOTHYROXINE NA 125 MCG TABLET (FP) PO SCH (06:43)
[2019-06-04 06:54] LABS: HEMOGLOBIN 8.9 GM/dL (11.7-16.9); MCH 33.4 pg (25.7-33.7); MCHC 31.7 g/dl (32.0-35.9); MEAN CELL VOLUME 105.2 fl (80-96); PLATELET COUNT 248 K/MM3 (134-434); RBC 2.66 M/mm3 (4.00-5.60); RDW 14.6 % (11.9-15.9); WHITE BLOOD COUNT 10.7 K/mm3 (4.0-10.0)
[2019-06-04 07:26] LABS: CALCIUM 8.1 mg/dL (8.5-10.1); CREATININE 4.8 mg/dL (0.55-1.3); MAGNESIUM 3.7 mg/dL (1.8-2.4); PHOSPHOROUS 4.7 mg/dL (2.5-4.9); POTASSIUM 4.5 mmol/L (3.5-5.1)
[2019-06-04 07:34] LABS: BLOOD UREA NITROGEN 117.3 mg/dL (7-18)
[2019-06-04] MEDS: TAMSULOSIN HCL 0.4 MG CAP PO SCH (09:32)
[2019-06-04] MEDS ORDERED: PIPERACILLIN/TAZOB 2.25 GM 2.25 GM in DEXTROSE 5%-WATER - 50 ML IVPB SCH (10:00)
--- NOTE | 2019-06-04 10:26 | PN ---
Progress Note (short form) - Note Progress Note: pt examined in tele- ICU awake confused no SOB no chest pain Vital Signs - 24 hr 06/03/19 06/03/19 06/03/19 11:30 13:00 15:35 Temperature Pulse Rate Pulse Rate [ 95 H 97 H 98 H Apical] Respiratory 21 H 23 H 20 Rate Blood Pressure Blood Pressure 98/60 100/55 L 97/61 [Left Arm] Blood Pressure [Left Calf] O2 Sat by Pulse 97 Oximetry (%) 06/03/19 06/03/19 06/03/19 16:02 17:00 18:39 Temperature 101.1 F H Pulse Rate Pulse Rate [ 96 H 90 Apical] Respiratory 22 H 21 H Rate Blood Pressure Blood Pressure [Left Arm] Blood Pressure 153/69 146/63 [Left Calf] O2 Sat by Pulse 97 Oximetry (%) 06/03/19 06/03/19 06/04/19 19:25 22:05 00:00 Temperature 99.6 F 98.7 F Pulse Rate 86 Pulse Rate [ 83 Apical] Respiratory 21 H 24 H 24 H Rate Blood Pressure 141/61 Blood Pressure 93/43 L [Left Arm] Blood Pressure [Left Calf] O2 Sat by Pulse 99 97 Oximetry (%) 06/04/19 06/04/19 06/04/19 02:00 02:27 02:40 Temperature Pulse Rate Pulse Rate [ Apical] Respiratory 24 H 24 H Rate Blood Pressure 109/50 L Blood Pressure [Left Arm] Blood Pressure [Left Calf] O2 Sat by Pulse 97 97 Oximetry (%) 06/04/19 06/04/19 03:17 06:00 Temperature 98.7 F 98.2 F Pulse Rate 82 77 Pulse Rate [ Apical] Respiratory 18 18 Rate Blood Pressure 141/61 130/63 Blood Pressure [Left Arm] Blood Pressure [Left Calf] O2 Sat by Pulse 97 Oximetry (%) Current Medications Generic Name Dose Route Start Last Admin Trade Name Freq PRN Reason Stop Dose Admin Acetaminophen 650 mg 06/03/19 06:14 Tylenol - PO Q6H PRN PAIN LEVEL 1-5 Atorvastatin Calcium 10 mg 06/03/19 22:00 06/03/19 22:45 Lipitor - PO Not Given HS [facility] Heparin Sodium (Porcine) 5,000 unit 06/03/19 14:00 06/04/19 06:42 Heparin - SQ 5,000 unit TID [facility] Administration Piperacillin Sod/Tazobactam 50 mls @ 100 mls/hr 06/03/19 18:00 06/04/19 09:32 Sod 2.25 gm/ Dextrose IVPB 100 mls/hr Q8H-IV [facility] Administration Protocol Dextrose 1,000 mls @ 100 mls/hr 06/04/19 00:45 D5w - IV .Q10H [facility] Insulin Aspart 1 vial 06/03/19 11:00 06/04/19 06:42 Novolog Vial Sliding Scale - SQ Not Given ACHS [facility] Protocol Levothyroxine Sodium 125 mcg 06/03/19 07:00 06/04/19 06:43 Synthroid - PO 125 mcg DAILY@0700 [facility] Administration Tamsulosin HCl 0.4 mg 06/03/19 08:30 06/04/19 09:32 Flomax - PO Not Given DAILY@0830 [facility] Laboratory Results - last 24 hr 06/03/19 06/03/19 06/03/19 11:33 18:47 19:30 WBC RBC Hgb Hct MCV MCH MCHC RDW Plt Count MPV Sodium Potassium Chloride Carbon Dioxide Anion Gap BUN Creatinine Est GFR (CKD-EPI)AfAm Est GFR (CKD-EPI)NonAf POC Glucometer 108 123 Random Glucose Calcium Phosphorus Magnesium Triglycerides Cholesterol Total LDL Cholesterol HDL Cholesterol Ur Random Creatinine U Random Total Protein Ur Random Sodium 32 L Ur Random Urea Nitrogn Urine Creatinine Protein/Creatinin Ratio 06/03/19 06/03/19 06/03/19 19:30 19:30 19:30 WBC RBC Hgb Hct MCV MCH MCHC RDW Plt Count MPV Sodium Potassium Chloride Carbon Dioxide Anion Gap BUN Creatinine Est GFR (CKD-EPI)AfAm Est GFR (CKD-EPI)NonAf POC Glucometer Random Glucose Calcium Phosphorus Magnesium Triglycerides Cholesterol Total LDL Cholesterol HDL Cholesterol Ur Random Creatinine 69.0 U Random Total Protein 63.0 H Ur Random Sodium Ur Random Urea Nitrogn 849 Urine Creatinine 68.0 Protein/Creatinin Ratio 0.9 06/03/19 06/03/19 06/03/19 20:35 23:00 23:03 WBC RBC Hgb Hct MCV MCH MCHC RDW Plt Count MPV Sodium 164 H* 164 H* Potassium 4.8 4.9 Chloride 135 H 136 H Carbon Dioxide 23 24 Anion Gap 6 L 4 L BUN 118.0 H* 115.6 H* Creatinine 5.3 H 5.1 H Est GFR (CKD-EPI)AfAm 11.15 11.69 Est GFR (CKD-EPI)NonAf 9.62 10.08 POC Glucometer 119 Random Glucose 125 H 128 H Calcium 8.1 L 8.0 L Phosphorus Magnesium Triglycerides Cholesterol Total LDL Cholesterol HDL Cholesterol Ur Random Creatinine U Random Total Protein Ur Random Sodium Ur Random Urea Nitrogn Urine Creatinine Protein/Creatinin Ratio 06/04/19 06/04/19 06/04/19 05:50 05:57 05:57 WBC 10.7 H RBC 2.66 L Hgb 8.9 L Hct 28.0 L MCV 105.2 H MCH 33.4 MCHC 31.7 L RDW 14.6 Plt Count 248 MPV 9.0 Sodium 166 H* Potassium 4.5 Chloride 135 H Carbon Dioxide 24 Anion Gap 7 L BUN 117.3 H* Creatinine 4.8 H Est GFR (CKD-EPI)AfAm 12.57 Est GFR (CKD-EPI)NonAf 10.85 POC Glucometer 140 Random Glucose 157 H Calcium 8.1 L Phosphorus 4.7 Magnesium 3.7 H Triglycerides 387 H Cholesterol 121 Total LDL Cholesterol 52 HDL Cholesterol 10 L Ur Random Creatinine U Random Total Protein Ur Random Sodium Ur Random Urea Nitrogn Urine Creatinine Protein/Creatinin Ratio Microbiology 06/02/19 21:38 Urine Culture - Preliminary Urine - Urine - Catheterized Group D Strep Or Entero Coccus 06/02/19 20:50 Blood Culture - Preliminary Blood - Peripheral Venous NO GROWTH OBTAINED AFTER 24 HOURS, INCUBATION TO CONTINUE FOR 4 DAYS. 06/02/19 20:44 Blood Culture - Preliminary Blood - Peripheral Venous NO GROWTH OBTAINED AFTER 24 HOURS, INCUBATION TO CONTINUE FOR 4 DAYS. S1 S2 RRR Lungs decreased Abd- soft, obese, NT edema+ Right arm - edema-- arm in sling A/P Acute on CKD Hyperkalemia Metabolic encephalopathy Rt humerus fracture sepsis -- henley + -- monitor out put -- iv fluids -- iv antibiotics -- start po -- encourage po liquids -- swallow eval -- pt baseline renal function around 2.5 -- renal sono noted -- renal eval and ID eval appreciated Problem List - Problems (1) Metabolic encephalopathy Code(s): G93.41 - METABOLIC ENCEPHALOPATHY (2) AFTAB (acute kidney injury) Code(s): N17.9 - ACUTE KIDNEY FAILURE, UNSPECIFIED (3) AMS (altered mental status) Code(s): R41.82 - ALTERED MENTAL STATUS, UNSPECIFIED (4) Anemia Code(s): D64.9 - ANEMIA, UNSPECIFIED (5) Bipolar disease, chronic Code(s): F31.9 - BIPOLAR DISORDER, UNSPECIFIED (6) Chronic renal failure, stage 4 (severe) Code(s): N18.4 - CHRONIC KIDNEY DISEASE, STAGE 4 (SEVERE) (7) Displaced fracture of right humerus Code(s): S42.301A - UNSP FRACTURE OF SHAFT OF HUMERUS, RIGHT ARM, INIT
--- NOTE | 2019-06-04 11:55 | PN ---
Progress Note (short form) - Note Progress Note: Renal follow up for AFTAB/Hypernatremia Seen and examined at the bedside awake and alert but remains confused on IVF making urine via henley no diarrhea overnight has pain in right arm Vital Signs Temperature 98.2 F 06/04/19 06:00 Pulse Rate 77 06/04/19 06:00 Respiratory Rate 18 06/04/19 06:00 Blood Pressure 130/63 06/04/19 06:00 O2 Sat by Pulse Oximetry (%) 98 06/04/19 09:00 Intake & Output 06/01/19 06/02/19 06/03/19 06/04/19 23:59 23:59 23:59 23:59 Intake Total 1400 850 Output Total 900 1200 1800 Balance -900 200 -950 Weight 84.912 kg 87.77 kg 82.1 kg No distress, confused, groggy dry mucus membranes neck supple, no JVD RRR, no M/R Meir BS, no rales or wheeze soft, NT/ND, no rebound or guarding no CVA tenderness no bladder distension, henley in place no LE edema, clubbing or cyanosis CBC, BMP 06/02/19 20:44 06/03/19 02:57 Laboratory Tests 06/02/19 06/02/19 06/03/19 21:38 22:33 02:57 Calcium 8.1 L Albumin 1.8 L Urine Protein Trace Urine Blood Negative Stool Occult Blood Negative Current Medications Acetaminophen (Tylenol -) 650 mg PO Q6H PRN PRN Reason: PAIN LEVEL 1-5 Atorvastatin Calcium (Lipitor -) 10 mg PO HS [facility] Heparin Sodium (Porcine) (Heparin -) 5,000 unit SQ TID [facility] Sodium Chloride (1/2 Normal Saline) 1,000 mls @ 125 mls/hr IV ASDIR [facility] Last Admin: 06/03/19 04:43 Dose: 125 mls/hr Piperacillin Sod/Tazobactam (Sod 2.25 gm/ Dextrose) 50 mls @ 100 mls/hr IVPB Q8H-IV [facility]; Protocol Piperacillin Sod/Tazobactam (Sod 2.25 gm/ Dextrose) 50 mls @ 100 mls/hr IVPB Q8H-IV [facility]; Protocol Stop: 06/04/19 02:29 Insulin Aspart (Novolog Vial Sliding Scale -) 1 vial SQ ACHS [facility]; Protocol Levothyroxine Sodium (Synthroid -) 125 mcg PO DAILY@0700 [facility] Last Admin: 06/03/19 07:14 Dose: 125 mcg Tamsulosin HCl (Flomax -) 0.4 mg PO DAILY@0830 [facility] 79 year old gentleman with history of CKD stage 4 (baseline Cr 2.5-2.9), Schizoaffective disorder, hypertension, hyperlipidemia, anemia, BPH, CAD who presented from [place] with fever and desaturation and admitted for sepsis due to PNA with worsening renal function. 1. Acute kidney injury in setting of sepsis 2. Chronic kidney disease stage 4 3. Sepsis/PNA 4. Hypernatremia 5. Hyperkalemia 6. Hx of BPH 7. Hx of hypertension 8. Hyperlipidemia 9. 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 Andersen. Luis Armando Ruiz DO
--- NOTE | 2019-06-04 12:39 | CONSULT ---
Admitting History and Physical - Primary Care Physician PCP: Lily Andersen - Admission History of Present Illness: Per EMR- 79 year old gentleman with history of CKD stage 4 (baseline Cr 2.5-2.9), Schizoaffective disorder, hypertension, hyperlipidemia, anemia, BPH, CAD who presented from [place] with fever and desaturation and admitted for sepsis due to PNA with worsening renal function. Selected Entries 06/04/19 06/04/19 06/04/19 03:17 06:00 09:27 Breakfast NPO Temperature 98.7 F 98.2 F 06/04/19 10:00 Breakfast Temperature 98 F Laboratory Tests 06/02/19 06/04/19 20:44 05:57 WBC 14.2 H 10.7 H Out pt mbs-05/2018 (-) aspiration but risk-Soft, easy to chew/thin liquid History Source: Medical Record Limitations to Obtaining History: Clinical Condition - Past Medical History Cardiovascular: Yes: HTN, Hyperlipdemia, Other (ASHD) Renal/: Yes: BPH Heme/Onc: Yes: Anemia Psych: Yes: Schizophrenia Endocrine: Yes: Hypothyroidism - Past Surgical History Past Surgical History: Yes: None Additional Past Surgical History: unable to obtain due to clinical condition - Smoking History Smoking history: Never smoked Have you smoked in the past 12 months: No - Alcohol/Substance Use Hx Alcohol Use: No History of Substance Use: reports: None - Social History ADL: Support Services History of Recent Travel: No History - Admission Reason For Visit: ACUTE KIDNEY INJURY, HYPERGLYCEMIA,PNEUMONIA - Diagnostics X-ray: Report Reviewed CT Scan: Report Reviewed Modified Barium Swallow: Report Reviewed (May 2018, delayed but brisk swallow. soft, easy to chew/thin liquid- supervision) - General Mental Status: Lethargic (arousable, but maintains eye closure) Attention: Moderate Impairment Ability to Follow Directions: Fair Head/Neck Control: Needs Assist - Hearing Hearing: Impaired Hearing Aide: No With Patient: No Speech Evaluation - Communication Primary Language: MALTESE Oral Expression Ability: Yes: Mild Impairment - Speech Production Intelligibility: Yes: Mildly Impaired - Speech Characteristics Voice Loudness: Normal Voice Pitch: Yes: Normal Voice Phonatory-based Quality: Yes: Dysphonia Speech Clarity: < 100% Nasal Resonance: Normal Articulation: Yes: Imprecise - Language/Auditory Comprehension Follows: Yes: 1 Stage Simple Commands Observation: Able to respond to yes/no queries: Yes, Yes/No Confusion: No, Comprehends Conversational Speech: Yes - Language/Verbal Expression Able to Respond to Simple Queries: Yes: Mildly Impaired, Moderately Impaired - Swallow Evaluation/Bedside Assessment Current Nutritional Intake: Dysphagia Pureed, [place] Textured Liquids Oral Secretions: Yes: WFL Dentition: Yes: Edentulous (dental roots) Against Resistance Opening: Weak Against Resistance Closing: Weak Pucker Lips: Weak Smile: Weak Lingual Movement: Symmetric, Reduced Protrusion Lingual Speed of Movement: Reduced Lingual Movement Str[place] Against Opposition: Reduced Laryngeal Elevation: Impaired Laryngeal Movement: Labored,delay initiation Bolus Size: WFL Chewing: WFL Oral Prep Time: Increased A-P Transit: Impaired Timing of Swallow: Delayed Coughing/Throat Clear: No (with nectar thick. Thin not attempted) Recommendations - Speech Evaluation, Impression/Plan Impression: Speech imprecise. Dysphonic. Reduced SHARMAINE, responds verbally with resistance, with eyes closed. Delayed labored swallow. Overtly tolerated puree/ nectar on tsp. Aspiration suspected on thin and cup or straw drinking with nectar. - Disposition Discharge to: [facility] - Dysphagia Impressions/Plan Swallowing Skills: Impaired Dysphagia Impressions: Mild Impairment, Moderate Impairment, Suspect Aspiration *Silent aspiration: cannot be R/O at bedside Dysphagia Treatment Plan: Small Bites, Chin Tuck/Down, Clear Pocket Food, Safe Rate, 1/2 tsp. at a time, Elevate HOB during feed Recommendations: Modified Barium Swallow (if cough, congestion) - Recommendations Diet Consistency: Dysphagia Pureed Medication Administration: Crushed with applesauce Liquids: [place] Thick (on tsp)
[2019-06-04] MEDS: SODIUM CHLORIDE 0.45% 1,000 ML IV SCH (14:11)
--- NOTE | 2019-06-04 16:50 | PN ---
Progress Note, Physician History of Present Illness: awake alert confused - Current Medication List Current Medications: Active Medications Acetaminophen (Tylenol -) 650 mg PO Q6H PRN PRN Reason: PAIN LEVEL 1-5 Amino Acids (Prosource No Carb Liquid Pkt) 30 ml PO BID@0800,1730 [facility] Atorvastatin Calcium (Lipitor -) 10 mg PO HS [facility] Last Admin: 06/03/19 22:45 Dose: Not Given Divalproex Sodium (Depakote -) 1,000 mg PO BID [facility] Heparin Sodium (Porcine) (Heparin -) 5,000 unit SQ TID [facility] Last Admin: 06/04/19 14:11 Dose: 5,000 unit Piperacillin Sod/Tazobactam (Sod 2.25 gm/ Dextrose) 50 mls @ 100 mls/hr IVPB Q8H-IV [facility]; Protocol Last Admin: 06/04/19 09:32 Dose: 100 mls/hr Sodium Chloride (1/2 Normal Saline) 1,000 mls @ 125 mls/hr IV ASDIR [facility] Last Admin: 06/04/19 14:11 Dose: 125 mls/hr Insulin Aspart (Novolog Vial Sliding Scale -) 1 vial SQ ACHS [facility]; Protocol Last Admin: 06/04/19 16:32 Dose: Not Given Levothyroxine Sodium (Synthroid -) 125 mcg PO DAILY@0700 [facility] Last Admin: 06/04/19 06:43 Dose: 125 mcg Tamsulosin HCl (Flomax -) 0.4 mg PO DAILY@0830 [facility] Last Admin: 06/04/19 09:32 Dose: Not Given - Objective Vital Signs: Vital Signs Temperature 97.3 F L 06/04/19 13:30 Pulse Rate 76 06/04/19 13:30 Respiratory Rate 18 06/04/19 13:30 Blood Pressure 94/76 06/04/19 13:30 O2 Sat by Pulse Oximetry (%) 98 06/04/19 09:00 Constitutional: Yes: No Distress, Calm Cardiovascular: Yes: S1, S2 Respiratory: Yes: Regular, CTA Bilaterally Gastrointestinal: Yes: Normal Bowel Sounds, Soft Musculoskeletal: Yes: WNL Extremities: Yes: WNL Neurological: Yes: Alert, Confusion Psychiatric: Yes: Other Labs: CBC, BMP 06/04/19 05:57 06/04/19 05:57 INR, PTT INR 1.19 (0.83-1.09) H 06/02/19 20:44 Assessment/Plan Problem List - Problems (1) Sepsis Code(s): A41.9 - SEPSIS, UNSPECIFIED ORGANISM Qualifiers: Sepsis type: sepsis due to unspecified organism Sepsis acute organ dysfunction status: with acute organ dysfunction Severe sepsis acute organ dysfunction type: acute renal failure Acute renal failure type: unspecified Severe sepsis shock status: without septic shock Qualified Code(s): A41.9 - Sepsis, unspecified organism; R65.20 - Severe sepsis without septic shock; N17.9 - Acute kidney failure, unspecified (2) AMS (altered mental status) Code(s): R41.82 - ALTERED MENTAL STATUS, UNSPECIFIED (3) AFTAB (acute kidney injury) Code(s): N17.9 - ACUTE KIDNEY FAILURE, UNSPECIFIED (4) Hyperglycemia Code(s): R73.9 - HYPERGLYCEMIA, UNSPECIFIED (5) Renal failure (ARF), acute on chronic Code(s): N17.9 - ACUTE KIDNEY FAILURE, UNSPECIFIED; N18.9 - CHRONIC KIDNEY DISEASE, UNSPECIFIED (6) HTN (hypertension) Code(s): I10 - ESSENTIAL (PRIMARY) HYPERTENSION (7) HLD (hyperlipidemia) Code(s): E78.5 - HYPERLIPIDEMIA, UNSPECIFIED (8) Anemia Code(s): D64.9 - ANEMIA, UNSPECIFIED (9) Hypothyroidism Code(s): E03.9 - HYPOTHYROIDISM, UNSPECIFIED (10) Schizo affective schizophrenia Code(s): F25.9 - SCHIZOAFFECTIVE DISORDER, UNSPECIFIED (11) BPH (benign prostatic hyperplasia) Code(s): N40.0 - BENIGN PROSTATIC HYPERPLASIA WITHOUT LOWER URINRY TRACT SYMP (12) Hyperkalemia Code(s): E87.5 - HYPERKALEMIA (13) Hypernatremia Code(s): E87.0 - HYPEROSMOLALITY AND HYPERNATREMIA plan continue current mgmt abx close watch rest as per the team
[2019-06-04] MEDS: AMINO ACIDS/PROTEIN HYDROLYS 30 ML LIQUID.PKT PO SCH (17:40)
[2019-06-04] MEDS ORDERED: DIVALPROEX SODIUM 500 MG TABLET E.C. PO SCH (22:00)
[2019-06-04] MEDS: VALPROATE SODIUM 250 MG/5 ML UNIT DOSE CUP PO SCH (23:50)
[2019-06-04] MEDS: ATORVASTATIN CA 10 MG TABLET (FP) PO SCH (23:50)
[2019-06-05] MEDS ORDERED: PIPERACILLIN/TAZOBACTAM 2.25 GM VIAL IVPB ONE ×3 (01:49→17:10)
[2019-06-05] MEDS ORDERED: DEXTROSE 5%-WATER - 50 ML IVPB ONE ×3 (01:49→17:11)
[2019-06-05] MEDS: PIPERACILLIN/TAZOB 2.25 GM 2.25 GM in DEXTROSE 5%-WATER - 50 ML IVPB SCH ×3 (02:39→17:20)
[2019-06-05] MEDS: INSULIN SLIDING SCALE (NOVOLOG) 1 VIAL SQ SCH ×4 (06:46→22:18)
[2019-06-05] MEDS: HEPARIN NA (PORCINE) 5,000 UNITS/ML 1ML VIAL SQ SCH ×3 (06:47→22:48)
[2019-06-05] MEDS: LEVOTHYROXINE NA 125 MCG TABLET (FP) PO SCH (06:47)
[2019-06-05 07:00] LABS: BASO % 0.6 % (0-2.0); EOS % 1.2 % (0-4.5); HEMATOCRIT 29.5 % (35.4-49); HEMOGLOBIN 9.1 GM/dL (11.7-16.9); LYMPH % 15.7 % (8-40); MCH 33.2 pg (25.7-33.7); MCHC 30.9 g/dl (32.0-35.9); MEAN CELL VOLUME 107.2 fl (80-96); MEAN PLT VOLUME 9.4 fl (7.5-11.1); MONO % 14.8 % (3.8-10.2); NEUT % 67.7 % (42.8-82.8); PLATELET COUNT 284 K/MM3 (134-434); RBC 2.75 M/mm3 (4.00-5.60); RDW 15.6 % (11.9-15.9); WHITE BLOOD COUNT 9.7 K/mm3 (4.0-10.0)
[2019-06-05] MEDS: SODIUM CHLORIDE 0.45% 1,000 ML IV SCH (07:30)
[2019-06-05 07:36] LABS: ALBUMIN 1.7 g/dl (3.4-5.0); BILIRUBIN,TOTAL 0.8 mg/dL (0.2-1); BLOOD UREA NITROGEN 97.9 mg/dL (7-18); CALCIUM 8.6 mg/dL (8.5-10.1); MAGNESIUM 3.6 mg/dL (1.8-2.4); PHOSPHOROUS 3.1 mg/dL (2.5-4.9); POTASSIUM 4.6 mmol/L (3.5-5.1); TOT PROT 5.6 g/dl (6.4-8.2)
[2019-06-05] MEDS: AMINO ACIDS/PROTEIN HYDROLYS 30 ML LIQUID.PKT PO SCH ×2 (08:00→17:20)
--- NOTE | 2019-06-05 08:31 | PN ---
Progress Note (short form) - Note Progress Note: Pt seen/ examined. chart reviewed. Drowsy but arousable poor historian Vital Signs Temp 98 F 06/04/19 17:00 Pulse 85 06/05/19 06:00 Resp 18 06/05/19 06:00 BP 92/61 06/05/19 06:00 Pulse Ox 98 06/04/19 22:00 Intake & Output 06/04/19 06/04/19 06/05/19 11:59 23:59 11:59 Intake Total 850 1680 1600 Output Total 1800 1000 1400 Balance -950 680 200 Weight 181 lb 181 lb 176 lb 14.4 oz Intake: IV 800 1100 1500 1/2 Normal Saline 1,326 344 0035 ml @ 125 mls/hr IV ASDIR [facility] Rx#:[id number] D5w - 1,000 ml @ 100 mls/ 800 600 hr IV .Q10H [facility] Rx#: [id number] IVPB 50 100 100 Oral 480 Output: Urine 1800 1000 1400 Henley 1800 1000 1400 Other: Voiding Method Indwelling Catheter Indwelling Catheter Bowel Movement No Yes Height 5 ft 3 in Body Mass Index (BMI) 32.1 Weight Measurement Method Built in Bedscale Built in Bedscale Active Medications Acetaminophen (Tylenol -) 650 mg PO Q6H PRN PRN Reason: PAIN LEVEL 1-5 Amino Acids (Prosource No Carb Liquid Pkt) 30 ml PO BID@0800,1730 [facility] Last Admin: 06/04/19 17:40 Dose: 30 ml Atorvastatin Calcium (Lipitor -) 10 mg PO HS [facility] Last Admin: 06/04/19 23:50 Dose: Not Given Heparin Sodium (Porcine) (Heparin -) 5,000 unit SQ TID [facility] Last Admin: 06/05/19 06:47 Dose: 5,000 unit Piperacillin Sod/Tazobactam (Sod 2.25 gm/ Dextrose) 50 mls @ 100 mls/hr IVPB Q8H-IV [facility]; Protocol Last Admin: 06/05/19 02:39 Dose: 100 mls/hr Sodium Chloride (1/2 Normal Saline) 1,000 mls @ 125 mls/hr IV [facility] Last Admin: 06/04/19 14:11 Dose: 125 mls/hr Insulin Aspart (Novolog Vial Sliding Scale -) 1 vial SQ ACHS [facility]; Protocol Last Admin: 06/05/19 06:46 Dose: Not Given Levothyroxine Sodium (Synthroid -) 125 mcg PO DAILY@0700 [facility] Last Admin: 06/05/19 06:47 Dose: 125 mcg Tamsulosin HCl (Flomax -) 0.4 mg PO DAILY@0830 [facility] Last Admin: 06/04/19 09:32 Dose: Not Given Valproate Sodium (Depakene -) 1,000 mg PO BID [facility] Last Admin: 06/04/19 23:50 Dose: Not Given CBC, BMP 06/05/19 05:50 06/05/19 05:50 Abnormal Lab Results 06/05/19 06/05/19 05:50 05:50 RBC 2.75 L Hgb 9.1 L Hct 29.5 L MCV 107.2 H MCHC 30.9 L Monocytes % 14.8 H Nucleated RBC % 1 H Sodium 168 H* Chloride 139 H Anion Gap 5 L BUN 97.9 H Creatinine 4.0 H Magnesium 3.6 H AST 44 H Total Protein 5.6 L Albumin 1.7 L Microbiology 06/02/19 20:50 Blood Culture - Preliminary Blood - Peripheral Venous NO GROWTH OBTAINED AFTER 48 HOURS, INCUBATION TO CONTINUE FOR 3 DAYS. 06/02/19 20:44 Blood Culture - Preliminary Blood - Peripheral Venous Pending Organism 06/02/19 21:38 Urine Culture - Preliminary Urine - Urine - Catheterized Group D Strep Or Entero Coccus Physical Exam S1 S2 RRR Lungs decreased Abd- soft, obese, edema+ Right arm - edema-- arm in sling A/P Acute on CKD Hyperkalemia Metabolic encephalopathy Rt humerus fracture sepsis -- +ve culture -- henley + -- monitor out put -- iv fluids -- iv antibiotics -- start po -- encourage po liquids -- swallow eval -- pt baseline renal function around 2.5 -- renal sono noted -- renal eval and ID eval appreciated - Psych consult - Monitor lytes will follow Problem List - Problems (1) Metabolic encephalopathy Code(s): G93.41 - METABOLIC ENCEPHALOPATHY (2) AFTAB (acute kidney injury) Code(s): N17.9 - ACUTE KIDNEY FAILURE, UNSPECIFIED (3) AMS (altered mental status) Code(s): R41.82 - ALTERED MENTAL STATUS, UNSPECIFIED (4) Anemia Code(s): D64.9 - ANEMIA, UNSPECIFIED (5) Bipolar disease, chronic Code(s): F31.9 - BIPOLAR DISORDER, UNSPECIFIED (6) Chronic renal failure, stage 4 (severe) Code(s): N18.4 - CHRONIC KIDNEY DISEASE, STAGE 4 (SEVERE) (7) Displaced fracture of right humerus Code(s): S42.301A - UNSP FRACTURE OF SHAFT OF HUMERUS, RIGHT ARM, INIT
[2019-06-05] MEDS: VALPROATE SODIUM 250 MG/5 ML UNIT DOSE CUP PO SCH (09:27)
[2019-06-05] MEDS: TAMSULOSIN HCL 0.4 MG CAP PO SCH (09:27)
[2019-06-05 10:21] LABS: MACROCYTOSIS 1+; PLATELET ESTIMATE NORMAL
[2019-06-05] MEDS: DEXTROSE 5%-WATER - 1,000 ML IV SCH ×2 (10:25→20:10)
--- NOTE | 2019-06-05 10:59 | PN ---
Progress Note (short form) - Note Progress Note: Renal follow up for AFTAB/Hypernatremia Seen and examined at the bedside awake but agitated and confused nurse reports that his IV may have not been working overnight making urine via henley tolerating oral food intake BP stable Vital Signs Temperature 98 F 06/04/19 17:00 Pulse Rate 85 06/05/19 08:00 Respiratory Rate 18 06/05/19 09:00 Blood Pressure 92/61 06/05/19 08:00 O2 Sat by Pulse Oximetry (%) 98 06/05/19 09:00 Intake & Output 06/02/19 06/03/19 06/04/19 06/05/19 23:59 23:59 23:59 23:59 Intake Total 1400 2530 1650 Output Total 900 1200 2800 1400 Balance -900 200 -270 250 Weight 84.912 kg 87.77 kg 82.1 kg 80.24 kg No distress, confused right arm echymosis no bladder distension, henley in place no LE edema CBC, BMP 06/05/19 05:50 06/05/19 05:50 Current Medications Acetaminophen (Tylenol -) 650 mg PO Q6H PRN PRN Reason: PAIN LEVEL 1-5 Amino Acids (Prosource No Carb Liquid Pkt) 30 ml PO BID@0800,1730 [facility] Last Admin: 06/05/19 08:00 Dose: Not Given Atorvastatin Calcium (Lipitor -) 10 mg PO HS [facility] Last Admin: 06/04/19 23:50 Dose: Not Given Heparin Sodium (Porcine) (Heparin -) 5,000 unit SQ TID [facility] Last Admin: 06/05/19 06:47 Dose: 5,000 unit Piperacillin Sod/Tazobactam (Sod 2.25 gm/ Dextrose) 50 mls @ 100 mls/hr IVPB Q8H-IV [facility]; Protocol Last Admin: 06/05/19 09:30 Dose: 100 mls/hr Dextrose (D5w -) 1,000 mls @ 125 mls/hr IV [facility]IR [facility] Insulin Aspart (Novolog Vial Sliding Scale -) 1 vial SQ ACHS [facility]; Protocol Last Admin: 06/05/19 06:46 Dose: Not Given Levothyroxine Sodium (Synthroid -) 125 mcg PO DAILY@0700 [facility] Last Admin: 06/05/19 06:47 Dose: 125 mcg Tamsulosin HCl (Flomax -) 0.4 mg PO DAILY@0830 [facility] Last Admin: 06/05/19 09:27 Dose: 0.4 mg Valproate Sodium (Depakene -) 1,000 mg PO BID [facility] Last Admin: 06/05/19 09:27 Dose: 1,000 mg 79 year old gentleman with history of CKD stage 4 (baseline Cr 2.5-2.9), Schizoaffective disorder, hypertension, hyperlipidemia, anemia, BPH, CAD who presented [place] with fever and desaturation and admitted for sepsis due to PNA with worsening renal function. 1. Acute kidney injury in setting of sepsis 2. Chronic kidney disease stage 4 3. Sepsis/PNA 4. Hypernatremia 5. Hyperkalemia 6. Hx of BPH 7. Hx of hypertension 8. Hyperlipidemia 9. Right Humerus fracture Suspect that AFTAB due to renal hypovporufsion +/- hypovolemia in setting of sepsis/PNA Renal function improving with IV hydration, no indication for renal replacement therapy change IVF to D5W as serum Na uptrending oral water intake as tolerated Can D/C henley pain control w/o NSAIDs, consider orthopedics cheyenne Ruiz DO
[2019-06-05] MEDS ORDERED: VANCOMYCIN 1 GRAM (PRE-DOCKED) 1,000 MG/250 ML BAG IVPB ONE (13:00)
--- NOTE | 2019-06-05 13:02 | PN ---
Progress Note, Physician History of Present Illness: very confused blood cx result noted - Current Medication List Current Medications: Active Medications Acetaminophen (Tylenol -) 650 mg PO Q6H PRN PRN Reason: PAIN LEVEL 1-5 Amino Acids (Prosource No Carb Liquid Pkt) 30 ml PO BID@0800,1730 [facility] Last Admin: 06/05/19 08:00 Dose: Not Given Atorvastatin Calcium (Lipitor -) 10 mg PO HS [facility] Last Admin: 06/04/19 23:50 Dose: Not Given Heparin Sodium (Porcine) (Heparin -) 5,000 unit SQ TID [facility] Last Admin: 06/05/19 06:47 Dose: 5,000 unit Piperacillin Sod/Tazobactam (Sod 2.25 gm/ Dextrose) 50 mls @ 100 mls/hr IVPB Q8H-IV [facility]; Protocol Last Admin: 06/05/19 09:30 Dose: 100 mls/hr Dextrose (D5w -) 1,000 mls @ 125 mls/hr IV ASDIR [facility] Last Admin: 06/05/19 10:25 Dose: 125 mls/hr Insulin Aspart (Novolog Vial Sliding Scale -) 1 vial SQ ACHS [facility]; Protocol Last Admin: 06/05/19 11:00 Dose: Not Given Levothyroxine Sodium (Synthroid -) 125 mcg PO DAILY@0700 [facility] Last Admin: 06/05/19 06:47 Dose: 125 mcg Tamsulosin HCl (Flomax -) 0.4 mg PO DAILY@0830 [facility] Last Admin: 06/05/19 09:27 Dose: 0.4 mg Valproate Sodium (Depakene -) 1,000 mg PO BID [facility] Last Admin: 06/05/19 09:27 Dose: 1,000 mg - Objective Vital Signs: Vital Signs Temperature 98.2 F 06/05/19 12:00 Pulse Rate 76 06/05/19 12:00 Respiratory Rate 18 06/05/19 12:00 Blood Pressure 94/69 06/05/19 12:00 O2 Sat by Pulse Oximetry (%) 98 06/05/19 09:00 Constitutional: Yes: Other Cardiovascular: Yes: S1, S2 Respiratory: Yes: Regular, CTA Bilaterally Gastrointestinal: Yes: Normal Bowel Sounds, Soft Genitourinary: Yes: Gracia Present Musculoskeletal: Yes: Other Neurological: Yes: Confusion Labs: CBC, BMP 06/05/19 05:50 06/05/19 05:50 INR, PTT INR 1.19 (0.83-1.09) H 06/02/19 20:44 Assessment/Plan Problem List - Problems (1) Sepsis Code(s): A41.9 - SEPSIS, UNSPECIFIED ORGANISM Qualifiers: Sepsis type: sepsis due to unspecified organism Sepsis acute organ dysfunction status: with acute organ dysfunction Severe sepsis acute organ dysfunction type: acute renal failure Acute renal failure type: unspecified Severe sepsis shock status: without septic shock Qualified Code(s): A41.9 - Sepsis, unspecified organism; R65.20 - Severe sepsis without septic shock; N17.9 - Acute kidney failure, unspecified (2) AMS (altered mental status) Code(s): R41.82 - ALTERED MENTAL STATUS, UNSPECIFIED (3) AFTAB (acute kidney injury) Code(s): N17.9 - ACUTE KIDNEY FAILURE, UNSPECIFIED (4) Hyperglycemia Code(s): R73.9 - HYPERGLYCEMIA, UNSPECIFIED (5) Renal failure (ARF), acute on chronic Code(s): N17.9 - ACUTE KIDNEY FAILURE, UNSPECIFIED; N18.9 - CHRONIC KIDNEY DISEASE, UNSPECIFIED (6) HTN (hypertension) Code(s): I10 - ESSENTIAL (PRIMARY) HYPERTENSION (7) HLD (hyperlipidemia) Code(s): E78.5 - HYPERLIPIDEMIA, UNSPECIFIED (8) Anemia Code(s): D64.9 - ANEMIA, UNSPECIFIED (9) Hypothyroidism Code(s): E03.9 - HYPOTHYROIDISM, UNSPECIFIED (10) Schizo affective schizophrenia Code(s): F25.9 - SCHIZOAFFECTIVE DISORDER, UNSPECIFIED (11) BPH (benign prostatic hyperplasia) Code(s): N40.0 - BENIGN PROSTATIC HYPERPLASIA WITHOUT LOWER URINRY TRACT SYMP (12) Hyperkalemia Code(s): E87.5 - HYPERKALEMIA (13) Hypernatremia Code(s): E87.0 - HYPEROSMOLALITY AND HYPERNATREMIA 14 gm oisutuve bacteremia plan continue current mgmt abx blood cx result noted awaiting for organism will give on dose of vanco vanco level tomorrow rest continue current mgmt
--- NOTE | 2019-06-05 14:45 | CON.PSY ---
Psychiatry Consult Chief Complaint: 79 dyana old male a resident of [facility]. Lonfg Psych illness, ? BiPolar vs Scizoaffective Disorder. Admitted with AMS. On high dose of Valproic acid. Symptoms: reports: Disorganized/Disruptive Thoughts - Previous Psychiatric Treatment Outpatient: More than 6 mos ago Inpatient: One prior admission - Previous Substance Abuse Treatment Outpatient: None Inpatient: None - Reason for Previous Treatment Reason for Previous Treatment: Biploar Illness - Current Medications Current Medications: Active Medications Acetaminophen (Tylenol -) 650 mg PO Q6H PRN PRN Reason: PAIN LEVEL 1-5 Amino Acids (Prosource No Carb Liquid Pkt) 30 ml PO BID@0800,1730 [facility] Last Admin: 06/05/19 08:00 Dose: Not Given Atorvastatin Calcium (Lipitor -) 10 mg PO HS [facility] Last Admin: 06/04/19 23:50 Dose: Not Given Heparin Sodium (Porcine) (Heparin -) 5,000 unit SQ TID [facility] Last Admin: 06/05/19 14:03 Dose: 5,000 unit Piperacillin Sod/Tazobactam (Sod 2.25 gm/ Dextrose) 50 mls @ 100 mls/hr IVPB Q8H-IV [facility]; Protocol Last Admin: 06/05/19 09:30 Dose: 100 mls/hr Dextrose (D5w -) 1,000 mls @ 125 mls/hr IV ASDIR [facility] Last Admin: 06/05/19 10:25 Dose: 125 mls/hr Insulin Aspart (Novolog Vial Sliding Scale -) 1 vial SQ ACHS [facility]; Protocol Last Admin: 06/05/19 11:00 Dose: Not Given Levothyroxine Sodium (Synthroid -) 125 mcg PO DAILY@0700 [facility] Last Admin: 06/05/19 06:47 Dose: 125 mcg Tamsulosin HCl (Flomax -) 0.4 mg PO DAILY@0830 [facility] Last Admin: 06/05/19 09:27 Dose: 0.4 mg Valproate Sodium (Depakene -) 1,000 mg PO BID [facility] Last Admin: 06/05/19 09:27 Dose: 1,000 mg - Allergies Allergies: Allergies Allergy/AdvReac Type Severity Reaction Status Date / Time No Known Allergies Allergy Verified 06/02/19 23:25 - Current Living Status Usual Living Arrangement: Fdc - Current Mental Status Evaluation Appearance: Disheveled Attitude: Guarded - Affect Affect: Constrictive Appropriateness: Not Appropriate - Mood Mood: Irritable - Speech/Language Expressive: Delayed - Psychomotor Activity Psychomotor Activity: Slowed - Thought Process Thought Process: Circumstantial - Thought Content Hallucinations: Absent Delusions: Absent - Self Perception Self Perception: Depersonalization - Cognition Attention: Diminished Memory, Immediate Recall: Impaired Memory, Short Term: 1/3 Memory, Remote with Promptin/3 - Concentration Serial Sevens Intact: No Simple Calculations Intact: No - Abstraction Proverb Interpretation: Impaired Judgement: Minimally Impaired - Insight Insight: Impaired - Impulse Control Impulse Control: Minimally Impaired - Suicidal Ideation Suicidal Ideation: No - Homicidal Ideation Homicidal Ideation: No Assessment/Plan 1) d/c Valproic acid . 2) serum Valproate Levels.
--- NOTE | 2019-06-05 15:26 | PN ---
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 Confused, Assist and encourage PO intake/supplements Consider adding 2 hawk HN
[2019-06-05] MEDS: ATORVASTATIN CA 10 MG TABLET (FP) PO SCH (22:48)
[2019-06-06] MEDS ORDERED: PIPERACILLIN/TAZOBACTAM 2.25 GM VIAL IVPB ONE ×4 (01:14→21:12)
[2019-06-06] MEDS ORDERED: DEXTROSE 5%-WATER - 50 ML IVPB ONE ×4 (01:14→21:12)
[2019-06-06] MEDS: PIPERACILLIN/TAZOB 2.25 GM 2.25 GM in DEXTROSE 5%-WATER - 50 ML IVPB SCH ×3 (01:18→18:11)
[2019-06-06] MEDS: DEXTROSE 5%-WATER - 1,000 ML IV SCH ×2 (04:29→11:42)
[2019-06-06] MEDS: INSULIN SLIDING SCALE (NOVOLOG) 1 VIAL SQ SCH ×4 (06:24→23:14)
[2019-06-06] MEDS: LEVOTHYROXINE NA 125 MCG TABLET (FP) PO SCH (06:28)
[2019-06-06] MEDS: HEPARIN NA (PORCINE) 5,000 UNITS/ML 1ML VIAL SQ SCH ×3 (06:44→22:48)
[2019-06-06 07:12] LABS: ALBUMIN 1.6 g/dl (3.4-5.0); BILIRUBIN,TOTAL 0.9 mg/dL (0.2-1); BLOOD UREA NITROGEN 80.6 mg/dL (7-18); CALCIUM 8.5 mg/dL (8.5-10.1); CREATININE 3.6 mg/dL (0.55-1.3); POTASSIUM 4.7 mmol/L (3.5-5.1); TOT PROT 5.7 g/dl (6.4-8.2)
[2019-06-06] MEDS: TAMSULOSIN HCL 0.4 MG CAP PO SCH (08:57)
[2019-06-06] MEDS: AMINO ACIDS/PROTEIN HYDROLYS 30 ML LIQUID.PKT PO SCH ×2 (08:57→18:11)
--- NOTE | 2019-06-06 12:04 | PN ---
Progress Note, Physician History of Present Illness: stable confused calm though - Current Medication List Current Medications: Active Medications Acetaminophen (Tylenol -) 650 mg PO Q6H PRN PRN Reason: PAIN LEVEL 1-5 Amino Acids (Prosource No Carb Liquid Pkt) 30 ml PO BID@0800,1730 [facility] Last Admin: 06/06/19 08:57 Dose: 30 ml Atorvastatin Calcium (Lipitor -) 10 mg PO HS [facility] Last Admin: 06/05/19 22:48 Dose: Not Given Divalproex Sodium (Depakote -) 1,000 mg PO BID [facility] Heparin Sodium (Porcine) (Heparin -) 5,000 unit SQ TID [facility] Last Admin: 06/06/19 06:44 Dose: 5,000 unit Piperacillin Sod/Tazobactam (Sod 2.25 gm/ Dextrose) 50 mls @ 100 mls/hr IVPB Q8H-IV [facility]; Protocol Last Admin: 06/06/19 09:00 Dose: 100 mls/hr Dextrose (D5w -) 1,000 mls @ 125 mls/hr IV ASDIR [facility] Last Admin: 06/06/19 11:42 Dose: 125 mls/hr Insulin Aspart (Novolog Vial Sliding Scale -) 1 vial SQ ACHS [facility]; Protocol Last Admin: 06/06/19 11:42 Dose: Not Given Levothyroxine Sodium (Synthroid -) 125 mcg PO DAILY@0700 [facility] Last Admin: 06/06/19 06:28 Dose: Not Given Tamsulosin HCl (Flomax -) 0.4 mg PO DAILY@0830 [facility] Last Admin: 06/06/19 08:57 Dose: 0.4 mg - Objective Vital Signs: Vital Signs Temperature 98.6 F 06/06/19 08:49 Pulse Rate 76 06/06/19 08:00 Respiratory Rate 22 H 06/06/19 08:00 Blood Pressure 136/79 06/06/19 10:00 O2 Sat by Pulse Oximetry (%) 98 06/05/19 21:00 Constitutional: Yes: No Distress, Calm Cardiovascular: Yes: S1, S2 Respiratory: Yes: Regular, CTA Bilaterally Gastrointestinal: Yes: Normal Bowel Sounds, Soft Genitourinary: Yes: Gracia Present Musculoskeletal: Yes: WNL Extremities: Yes: WNL Neurological: Yes: Alert, Confusion Psychiatric: Yes: Other Labs: CBC, BMP 06/05/19 05:50 06/06/19 06:00 INR, PTT INR 1.19 (0.83-1.09) H 06/02/19 20:44 Assessment/Plan Problem List - Problems (1) Sepsis Code(s): A41.9 - SEPSIS, UNSPECIFIED ORGANISM Qualifiers: Sepsis type: sepsis due to unspecified organism Sepsis acute organ dysfunction status: with acute organ dysfunction Severe sepsis acute organ dysfunction type: acute renal failure Acute renal failure type: unspecified Severe sepsis shock status: without septic shock Qualified Code(s): A41.9 - Sepsis, unspecified organism; R65.20 - Severe sepsis without septic shock; N17.9 - Acute kidney failure, unspecified (2) AMS (altered mental status) Code(s): R41.82 - ALTERED MENTAL STATUS, UNSPECIFIED (3) AFTAB (acute kidney injury) Code(s): N17.9 - ACUTE KIDNEY FAILURE, UNSPECIFIED (4) Hyperglycemia Code(s): R73.9 - HYPERGLYCEMIA, UNSPECIFIED (5) Renal failure (ARF), acute on chronic Code(s): N17.9 - ACUTE KIDNEY FAILURE, UNSPECIFIED; N18.9 - CHRONIC KIDNEY DISEASE, UNSPECIFIED (6) HTN (hypertension) Code(s): I10 - ESSENTIAL (PRIMARY) HYPERTENSION (7) HLD (hyperlipidemia) Code(s): E78.5 - HYPERLIPIDEMIA, UNSPECIFIED (8) Anemia Code(s): D64.9 - ANEMIA, UNSPECIFIED (9) Hypothyroidism Code(s): E03.9 - HYPOTHYROIDISM, UNSPECIFIED (10) Schizo affective schizophrenia Code(s): F25.9 - SCHIZOAFFECTIVE DISORDER, UNSPECIFIED (11) BPH (benign prostatic hyperplasia) Code(s): N40.0 - BENIGN PROSTATIC HYPERPLASIA WITHOUT LOWER URINRY TRACT SYMP (12) Hyperkalemia Code(s): E87.5 - HYPERKALEMIA (13) Hypernatremia Code(s): E87.0 - HYPEROSMOLALITY AND HYPERNATREMIA 14 gm positive bacteremia 15 uti plan continue current mgmt abx blood cx result noted repeat blood cx result awaited urine cx noted
[2019-06-06] MEDS: DIVALPROEX SODIUM 500 MG TABLET E.C. PO SCH ×3 (12:24→23:31)
--- NOTE | 2019-06-06 13:54 | PN ---
Progress Note (short form) - Note Progress Note: pt examined in tele- ICU awake confused no SOB no chest pain Vital Signs - 24 hr 06/05/19 06/05/19 06/05/19 14:00 18:00 21:00 Temperature 98.8 F 98.7 F Pulse Rate 74 82 Respiratory 18 17 Rate Blood Pressure 83/46 L 86/70 L O2 Sat by Pulse 98 Oximetry (%) 06/05/19 06/06/19 06/06/19 22:00 00:00 02:10 Temperature Pulse Rate 83 85 74 Respiratory 20 21 H 19 Rate Blood Pressure 129/113 H 165/148 H 218/199 H O2 Sat by Pulse Oximetry (%) 06/06/19 06/06/19 06/06/19 06:00 08:00 08:49 Temperature 98.5 F 98.6 F Pulse Rate 77 76 Respiratory 19 22 H Rate Blood Pressure 165/80 130/88 O2 Sat by Pulse Oximetry (%) 06/06/19 06/06/19 06/06/19 10:00 12:33 12:40 Temperature Pulse Rate 72 Respiratory 16 Rate Blood Pressure 136/79 155/72 O2 Sat by Pulse 98 Oximetry (%) 06/06/19 13:14 Temperature 98.4 F Pulse Rate 74 Respiratory 16 Rate Blood Pressure O2 Sat by Pulse Oximetry (%) Current Medications Generic Name Dose Route Start Last Admin Trade Name Freq PRN Reason Stop Dose Admin Acetaminophen 650 mg 06/03/19 06:14 Tylenol - PO Q6H PRN PAIN LEVEL 1-5 Amino Acids 30 ml 06/04/19 17:30 06/06/19 08:57 Prosource No Carb Liquid Pkt PO 30 ml BID@0800,1730 [facility] Administration Atorvastatin Calcium 10 mg 06/03/19 22:00 06/05/19 22:48 Lipitor - PO Not Given HS [facility] Bacitracin 1 applic 06/06/19 22:00 Bacitracin - TP BID [facility] Divalproex Sodium 1,000 mg 06/06/19 11:45 06/06/19 12:24 Depakote - PO 1,000 mg BID [facility] Administration Heparin Sodium (Porcine) 5,000 unit 06/03/19 14:00 06/06/19 06:44 Heparin - SQ 5,000 unit TID [facility] Administration Piperacillin Sod/Tazobactam 50 mls @ 100 mls/hr 12/18/19 18:00 06/06/19 09:00 Sod 2.25 gm/ Dextrose IVPB 100 mls/hr Q8H-IV [facility] Administration Protocol Dextrose 1,000 mls @ 125 mls/hr 06/05/19 10:00 06/06/19 11:42 D5w - IV 125 mls/hr ASDIR [facility] Administration Insulin Aspart 1 vial 06/03/19 11:00 06/06/19 11:42 Novolog Vial Sliding Scale - SQ Not Given ACHS [facility] Protocol Levothyroxine Sodium 125 mcg 06/03/19 07:00 06/06/19 06:28 Synthroid - PO Not Given DAILY@0700 [facility] Tamsulosin HCl 0.4 mg 06/03/19 08:30 06/06/19 08:57 Flomax - PO 0.4 mg DAILY@0830 [facility] Administration Laboratory Results - last 24 hr 06/03/19 06/06/19 06/06/19 19:30 06:00 06:00 Sodium 165 H* Potassium 4.7 Chloride 137 H Carbon Dioxide 23 Anion Gap 5 L BUN 80.6 H Creatinine 3.6 H Est GFR (CKD-EPI)AfAm 17.80 Est GFR (CKD-EPI)NonAf 15.36 POC Glucometer Random Glucose 144 H Calcium 8.5 Total Bilirubin 0.9 AST 46 H ALT 31 Alkaline Phosphatase 121 H Total Protein 5.7 L Albumin 1.6 L Urine Eosinophils None seen Random Vancomycin 16.5 L 06/06/19 11:41 Sodium Potassium Chloride Carbon Dioxide Anion Gap BUN Creatinine Est GFR (CKD-EPI)AfAm Est GFR (CKD-EPI)NonAf POC Glucometer 122 Random Glucose Calcium Total Bilirubin AST ALT Alkaline Phosphatase Total Protein Albumin Urine Eosinophils Random Vancomycin S1 S2 RRR Lungs decreased Abd- soft, obese, NT edema+ Right arm - edema-- arm in sling A/P Acute on CKD Hyperkalemia Metabolic encephalopathy Rt humerus fracture sepsis -- henley + -- monitor out put -- iv fluids -- iv antibiotics -- start po -- encourage po liquids -- swallow eval -- pt baseline renal function around 2.5 -- renal sono noted -- renal eval and ID eval appreciated Problem List - Problems (1) Metabolic encephalopathy Code(s): G93.41 - METABOLIC ENCEPHALOPATHY (2) AFTAB (acute kidney injury) Code(s): N17.9 - ACUTE KIDNEY FAILURE, UNSPECIFIED (3) AMS (altered mental status) Code(s): R41.82 - ALTERED MENTAL STATUS, UNSPECIFIED (4) Anemia Code(s): D64.9 - ANEMIA, UNSPECIFIED (5) Bipolar disease, chronic Code(s): F31.9 - BIPOLAR DISORDER, UNSPECIFIED (6) Chronic renal failure, stage 4 (severe) Code(s): N18.4 - CHRONIC KIDNEY DISEASE, STAGE 4 (SEVERE) (7) Displaced fracture of right humerus Code(s): S42.301A - UNSP FRACTURE OF SHAFT OF HUMERUS, RIGHT ARM, INIT
--- NOTE | 2019-06-06 17:49 | PN ---
Progress Note (short form) - Note Progress Note: 1. Acute kidney injury in setting of sepsis 2. Chronic kidney disease stage 4 3. Sepsis/PNA 4. Hypernatremia 5. Hyperkalemia 6. Hx of BPH 7. Hx of hypertension 8. Hyperlipidemia 9. Right Humerus fracture Current Medications Acetaminophen (Tylenol -) 650 mg PO Q6H PRN PRN Reason: PAIN LEVEL 1-5 Amino Acids (Prosource No Carb Liquid Pkt) 30 ml PO BID@0800,1730 [facility] Last Admin: 06/06/19 08:57 Dose: 30 ml Atorvastatin Calcium (Lipitor -) 10 mg PO HS [facility] Last Admin: 06/05/19 22:48 Dose: Not Given Bacitracin (Bacitracin -) 1 applic TP BID [facility] Divalproex Sodium (Depakote -) 1,000 mg PO BID [facility] Last Admin: 06/06/19 12:24 Dose: 1,000 mg Heparin Sodium (Porcine) (Heparin -) 5,000 unit SQ TID [facility] Last Admin: 06/06/19 14:02 Dose: 5,000 unit Piperacillin Sod/Tazobactam (Sod 2.25 gm/ Dextrose) 50 mls @ 100 mls/hr IVPB Q8H-IV [facility]; Protocol Last Admin: 06/06/19 09:00 Dose: 100 mls/hr Dextrose (D5w -) 1,000 mls @ 125 mls/hr IV ASDIR [facility] Last Admin: 06/06/19 11:42 Dose: 125 mls/hr Insulin Aspart (Novolog Vial Sliding Scale -) 1 vial SQ ACHS [facility]; Protocol Last Admin: 06/06/19 11:42 Dose: Not Given Levothyroxine Sodium (Synthroid -) 125 mcg PO DAILY@0700 [facility] Last Admin: 06/06/19 06:28 Dose: Not Given Tamsulosin HCl (Flomax -) 0.4 mg PO DAILY@0830 [facility] Last Admin: 06/06/19 08:57 Dose: 0.4 mg Last Vital Signs Temp Pulse Resp BP Pulse Ox 98.4 F 74 20 132/67 98 06/06/19 14:00 06/06/19 14:03 06/06/19 14:03 06/06/19 14:03 06/06/19 12:40 Lungs clear Heart reg Abd soft nontender Ext mild edema CBC, BMP 06/05/19 05:50 06/06/19 06:00 IMP- Hypernatremia- gradually improving Free water deficit Plan continue hypotonic fluids
[2019-06-06] MEDS ORDERED: PT OWN MED DRAWER 7, Y5N ONE (21:47)
[2019-06-06] MEDS: ACETAMINOPHEN 325 MG TABLET (FP) PO PRN (22:47)
[2019-06-06] MEDS: ATORVASTATIN CA 10 MG TABLET (FP) PO SCH (22:48)
[2019-06-06] MEDS: BACITRACIN 15 GM TUBE TOPICAL OINTMENT TP SCH (23:19)
[2019-06-07] MEDS ORDERED: PIPERACILLIN/TAZOBACTAM 2.25 GM VIAL IVPB ONE ×3 (01:40→17:29)
[2019-06-07] MEDS ORDERED: DEXTROSE 5%-WATER - 50 ML IVPB ONE ×3 (01:40→17:30)
[2019-06-07] MEDS: PIPERACILLIN/TAZOB 2.25 GM 2.25 GM in DEXTROSE 5%-WATER - 50 ML IVPB SCH ×3 (02:02→17:54)
[2019-06-07] MEDS: LEVOTHYROXINE NA 125 MCG TABLET (FP) PO SCH (06:33)
[2019-06-07] MEDS: HEPARIN NA (PORCINE) 5,000 UNITS/ML 1ML VIAL SQ SCH ×3 (06:34→22:01)
[2019-06-07] MEDS: ACETAMINOPHEN 325 MG TABLET (FP) PO PRN (06:35)
[2019-06-07] MEDS: INSULIN SLIDING SCALE (NOVOLOG) 1 VIAL SQ SCH ×4 (06:44→22:00)
[2019-06-07] MEDS: AMINO ACIDS/PROTEIN HYDROLYS 30 ML LIQUID.PKT PO SCH ×2 (09:32→18:40)
[2019-06-07] MEDS: TAMSULOSIN HCL 0.4 MG CAP PO SCH (09:32)
--- NOTE | 2019-06-07 09:34 | PN ---
Progress Note (short form) - Note Progress Note: pt examined in tele- ICU awake confused no SOB no chest pain Vital Signs - 24 hr 06/06/19 06/06/19 06/07/19 21:00 22:00 01:36 Temperature 97.7 F Pulse Rate 90 75 Respiratory 14 Rate Blood Pressure 154/72 O2 Sat by Pulse 97 98 Oximetry (%) 06/07/19 06/07/19 06/07/19 02:00 06:00 09:00 Temperature 97.9 F Pulse Rate 79 76 Respiratory 22 H 21 H Rate Blood Pressure 113/48 L 144/60 O2 Sat by Pulse 98 Oximetry (%) 06/07/19 06/07/19 13:38 17:00 Temperature 98.2 F 98.6 F Pulse Rate 74 78 Respiratory 22 H 18 Rate Blood Pressure 130/39 L 145/57 L O2 Sat by Pulse Oximetry (%) Current Medications Generic Name Dose Route Start Last Admin Trade Name Freq PRN Reason Stop Dose Admin Acetaminophen 650 mg 06/03/19 06:14 06/07/19 06:35 Tylenol - PO 650 mg Q6H PRN Administration PAIN LEVEL 1-5 Amino Acids 30 ml 06/04/19 17:30 06/07/19 18:40 Prosource No Carb Liquid Pkt PO Not Given BID@0800,1730 [facility] Atorvastatin Calcium 10 mg 06/03/19 22:00 06/06/19 22:48 Lipitor - PO 10 mg HS [facility] Administration Bacitracin 1 applic 06/06/19 22:00 06/07/19 11:31 Bacitracin - TP 1 applic BID [facility] Administration Divalproex Sodium 1,000 mg 06/06/19 11:45 06/07/19 11:31 Depakote - PO 1,000 mg BID [facility] Administration Heparin Sodium (Porcine) 5,000 unit 06/03/19 14:00 06/07/19 13:48 Heparin - SQ 5,000 unit TID [facility] Administration Piperacillin Sod/Tazobactam 50 mls @ 100 mls/hr 06/03/19 18:00 06/07/19 17:54 Sod 2.25 gm/ Dextrose IVPB 100 mls/hr Q8H-IV [facility] Administration Protocol Dextrose 1,000 mls @ 125 mls/hr 06/05/19 10:00 06/07/19 18:40 D5w - IV 125 mls/hr ASDIR [facility] Administration Insulin Aspart 1 vial 06/03/19 11:00 06/07/19 17:54 Novolog Vial Sliding Scale - SQ Not Given ACHS [facility] Protocol Levothyroxine Sodium 125 mcg 06/03/19 07:00 06/07/19 06:33 Synthroid - PO 125 mcg DAILY@0700 [facility] Administration Tamsulosin HCl 0.4 mg 06/03/19 08:30 06/07/19 09:32 Flomax - PO 0.4 mg DAILY@0830 [facility] Administration Laboratory Results - last 24 hr 06/06/19 06/07/19 06/07/19 23:12 11:20 11:20 WBC 8.4 RBC 2.42 L Hgb 7.9 L Hct 27.2 L MCV 112.1 H MCH 32.7 MCHC 29.2 L RDW 15.7 Plt Count 264 MPV 9.6 Absolute Neuts (auto) 5.5 Neutrophils % 65.9 Neutrophils % (Manual) 55.3 D Band Neutrophils % 4.9 Lymphocytes % 18.3 Lymphocytes % (Manual) 15.5 D Monocytes % 12.7 H Monocytes % (Manual) 12 H Eosinophils % 2.8 D Eosinophils % (Manual) 6.8 H Basophils % 0.3 Basophils % (Manual) 0.0 Myelocytes % (Man) 3 H D Promyelocytes % (Man) 0 Blast Cells % (Manual) 0 Nucleated RBC % 1 H Metamyelocytes 2 D Hypochromia 0 Platelet Estimate Normal Polychromasia 1+ Poikilocytosis 2+ Anisocytosis 1+ Microcytosis 1+ Macrocytosis 0 Stomatocytes 2+ Sodium Potassium Chloride Carbon Dioxide Anion Gap BUN Creatinine Est GFR (CKD-EPI)AfAm Est GFR (CKD-EPI)NonAf POC Glucometer 129 Random Glucose Calcium Total Bilirubin AST ALT Alkaline Phosphatase Total Protein Albumin Valproic Acid 7.0 L 06/07/19 06/07/19 06/07/19 11:20 12:16 17:46 WBC RBC Hgb Hct MCV MCH MCHC RDW Plt Count MPV Absolute Neuts (auto) Neutrophils % Neutrophils % (Manual) Band Neutrophils % Lymphocytes % Lymphocytes % (Manual) Monocytes % Monocytes % (Manual) Eosinophils % Eosinophils % (Manual) Basophils % Basophils % (Manual) Myelocytes % (Man) Promyelocytes % (Man) Blast Cells % (Manual) Nucleated RBC % Metamyelocytes Hypochromia Platelet Estimate Polychromasia Poikilocytosis Anisocytosis Microcytosis Macrocytosis Stomatocytes Sodium 145 Potassium 3.5 Chloride 116 H Carbon Dioxide 22 Anion Gap 7 L BUN 60.4 H Creatinine 3.1 H Est GFR (CKD-EPI)AfAm 21.33 Est GFR (CKD-EPI)NonAf 18.40 POC Glucometer 119 108 Random Glucose 558 H* Calcium 7.5 L Total Bilirubin 0.7 AST 71 H ALT 48 Alkaline Phosphatase 170 H Total Protein 4.9 L Albumin 1.5 L Valproic Acid S1 S2 RRR Lungs decreased Abd- soft, obese, NT edema+ Right arm - edema-- arm in sling A/P Acute on CKD Hyperkalemia Metabolic encephalopathy Rt humerus fracture sepsis -- henley + -- monitor out put -- monitor HCT -- iv fluids -- iv antibiotics -- tolerating po -- encourage po liquids -- swallow eval noted -- pt baseline renal function around 2.5 -- renal sono noted -- renal eval and ID eval appreciated Problem List - Problems (1) Metabolic encephalopathy Code(s): G93.41 - METABOLIC ENCEPHALOPATHY (2) AFTAB (acute kidney injury) Code(s): N17.9 - ACUTE KIDNEY FAILURE, UNSPECIFIED (3) AMS (altered mental status) Code(s): R41.82 - ALTERED MENTAL STATUS, UNSPECIFIED (4) Anemia Code(s): D64.9 - ANEMIA, UNSPECIFIED (5) Bipolar disease, chronic Code(s): F31.9 - BIPOLAR DISORDER, UNSPECIFIED (6) Chronic renal failure, stage 4 (severe) Code(s): N18.4 - CHRONIC KIDNEY DISEASE, STAGE 4 (SEVERE) (7) Displaced fracture of right humerus Code(s): S42.301A - UNSP FRACTURE OF SHAFT OF HUMERUS, RIGHT ARM, INIT
[2019-06-07] MEDS ORDERED: PT OWN MED DRAWER 7, Y5N ONE ×2 (10:26→22:02)
[2019-06-07] MEDS: BACITRACIN 15 GM TUBE TOPICAL OINTMENT TP SCH ×2 (11:31→22:00)
[2019-06-07] MEDS: DIVALPROEX SODIUM 500 MG TABLET E.C. PO SCH ×2 (11:31→22:03)
[2019-06-07 11:34] LABS: BASO % 0.3 % (0-2.0); EOS % 2.8 % (0-4.5); HEMATOCRIT 27.2 % (35.4-49); HEMOGLOBIN 7.9 GM/dL (11.7-16.9); LYMPH % 18.3 % (8-40); MCH 32.7 pg (25.7-33.7); MCHC 29.2 g/dl (32.0-35.9); MEAN CELL VOLUME 112.1 fl (80-96); MEAN PLT VOLUME 9.6 fl (7.5-11.1); MONO % 12.7 % (3.8-10.2); NEUT % 65.9 % (42.8-82.8); PLATELET COUNT 264 K/MM3 (134-434); RBC 2.42 M/mm3 (4.00-5.60); RDW 15.7 % (11.9-15.9); WHITE BLOOD COUNT 8.4 K/mm3 (4.0-10.0)
[2019-06-07 12:11] LABS: ALBUMIN 1.5 g/dl (3.4-5.0); BILIRUBIN,TOTAL 0.7 mg/dL (0.2-1); BLOOD UREA NITROGEN 60.4 mg/dL (7-18); CALCIUM 7.5 mg/dL (8.5-10.1); CREATININE 3.1 mg/dL (0.55-1.3); POTASSIUM 3.5 mmol/L (3.5-5.1); TOT PROT 4.9 g/dl (6.4-8.2)
[2019-06-07 12:46] LABS: ANISOCYTOSIS 1+; MACROCYTOSIS 0; PLATELET ESTIMATE NORMAL
--- NOTE | 2019-06-07 16:38 | PN ---
Progress Note (short form) - Note Progress Note: 1. Acute kidney injury in setting of sepsis 2. Chronic kidney disease stage 4 3. Sepsis/PNA 4. Hypernatremia 5. Hyperkalemia 6. Hx of BPH 7. Hx of hypertension 8. Hyperlipidemia 9. Right Humerus fracture Current Medications Acetaminophen (Tylenol -) 650 mg PO Q6H PRN PRN Reason: PAIN LEVEL 1-5 Last Admin: 06/07/19 06:35 Dose: 650 mg Amino Acids (Prosource No Carb Liquid Pkt) 30 ml PO BID@0800,1730 [facility] Last Admin: 06/07/19 09:32 Dose: 30 ml Atorvastatin Calcium (Lipitor -) 10 mg PO HS [facility] Last Admin: 06/06/19 22:48 Dose: 10 mg Bacitracin (Bacitracin -) 1 applic TP BID [facility] Last Admin: 06/07/19 11:31 Dose: 1 applic Divalproex Sodium (Depakote -) 1,000 mg PO BID [facility] Last Admin: 06/07/19 11:31 Dose: 1,000 mg Heparin Sodium (Porcine) (Heparin -) 5,000 unit SQ TID [facility] Last Admin: 06/07/19 13:48 Dose: 5,000 unit Piperacillin Sod/Tazobactam (Sod 2.25 gm/ Dextrose) 50 mls @ 100 mls/hr IVPB Q8H-IV [facility]; Protocol Last Admin: 06/07/19 11:31 Dose: 100 mls/hr Dextrose (D5w -) 1,000 mls @ 125 mls/hr IV ASDIR [facility] Last Admin: 06/06/19 11:42 Dose: 125 mls/hr Insulin Aspart (Novolog Vial Sliding Scale -) 1 vial SQ ACHS [facility]; Protocol Last Admin: 06/07/19 12:00 Dose: Not Given Levothyroxine Sodium (Synthroid -) 125 mcg PO DAILY@0700 [facility] Last Admin: 06/07/19 06:33 Dose: 125 mcg Tamsulosin HCl (Flomax -) 0.4 mg PO DAILY@0830 [facility] Last Admin: 06/07/19 09:32 Dose: 0.4 mg Last Vital Signs Temp Pulse Resp BP Pulse Ox 98.2 F 74 22 H 130/39 L 98 06/07/19 13:38 06/07/19 13:38 06/07/19 13:38 06/07/19 13:38 06/07/19 09:00 Lungs clear Heart reg Abd soft nontender Ext mild edema CBC, BMP 06/07/19 11:20 06/07/19 11:20 CBC, BMP 06/05/19 05:50 06/06/19 06:00 IMP - Hypernatremia- resolved AFTAB /dehyration Free water deficit Plan continue hypotonic fluids
[2019-06-07] MEDS: DEXTROSE 5%-WATER - 1,000 ML IV SCH (18:40)
--- NOTE | 2019-06-07 20:12 | PN ---
Progress Note, Physician History of Present Illness: Pt is alert, confused. Remains afebrile, without acute distress. - Current Medication List Current Medications: Active Medications Acetaminophen (Tylenol -) 650 mg PO Q6H PRN PRN Reason: PAIN LEVEL 1-5 Last Admin: 06/07/19 06:35 Dose: 650 mg Amino Acids (Prosource No Carb Liquid Pkt) 30 ml PO BID@0800,1730 [facility] Last Admin: 06/07/19 18:40 Dose: Not Given Atorvastatin Calcium (Lipitor -) 10 mg PO HS [facility] Last Admin: 06/06/19 22:48 Dose: 10 mg Bacitracin (Bacitracin -) 1 applic TP BID [facility] Last Admin: 06/07/19 11:31 Dose: 1 applic Divalproex Sodium (Depakote -) 1,000 mg PO BID [facility] Last Admin: 06/07/19 11:31 Dose: 1,000 mg Heparin Sodium (Porcine) (Heparin -) 5,000 unit SQ TID [facility] Last Admin: 06/07/19 13:48 Dose: 5,000 unit Piperacillin Sod/Tazobactam (Sod 2.25 gm/ Dextrose) 50 mls @ 100 mls/hr IVPB Q8H-IV [facility]; Protocol Last Admin: 06/07/19 17:54 Dose: 100 mls/hr Dextrose (D5w -) 1,000 mls @ 125 mls/hr IV ASDIR [facility] Last Admin: 06/07/19 18:40 Dose: 125 mls/hr Insulin Aspart (Novolog Vial Sliding Scale -) 1 vial SQ ACHS [facility]; Protocol Last Admin: 06/07/19 17:54 Dose: Not Given Levothyroxine Sodium (Synthroid -) 125 mcg PO DAILY@0700 [facility] Last Admin: 06/07/19 06:33 Dose: 125 mcg Tamsulosin HCl (Flomax -) 0.4 mg PO DAILY@0830 [facility] Last Admin: 06/07/19 09:32 Dose: 0.4 mg - Objective Vital Signs: Vital Signs Temperature 98.6 F 06/07/19 17:00 Pulse Rate 78 06/07/19 17:00 Respiratory Rate 18 06/07/19 17:00 Blood Pressure 145/57 L 06/07/19 17:00 O2 Sat by Pulse Oximetry (%) 98 06/07/19 09:00 Constitutional: Yes: No Distress, Calm Cardiovascular: Yes: Regular Rate and Rhythm Respiratory: Yes: CTA Bilaterally Gastrointestinal: Yes: Normal Bowel Sounds, Soft Genitourinary: Yes: WNL Edema: No Integumentary: Yes: WNL Neurological: Yes: Alert, Confusion Labs: CBC, BMP 06/07/19 11:20 06/07/19 11:20 INR, PTT INR 1.19 (0.83-1.09) H 06/02/19 20:44 Microbiology 06/02/19 20:44 Blood - Peripheral Venous Blood Culture - Preliminary Staphylococcus Coagulase Neg 06/06/19 06:00 Blood - Peripheral Venous Blood Culture - Preliminary NO GROWTH OBTAINED AFTER 24 HOURS, INCUBATION TO CONTINUE FOR 4 DAYS. 06/06/19 06:08 Blood - Peripheral Venous Blood Culture - Preliminary NO GROWTH OBTAINED AFTER 24 HOURS, INCUBATION TO CONTINUE FOR 4 DAYS. 06/02/19 20:50 Blood - Peripheral Venous Blood Culture - Preliminary NO GROWTH OBTAINED AFTER 96 HOURS, INCUBATION TO CONTINUE FOR 1 DAYS. 06/02/19 21:38 Urine - Urine - Catheterized Urine Culture - Final Enterococcus Faecalis - ....Imaging Chest X-ray: Report Reviewed Problem List - Problems (1) AFTAB (acute kidney injury) Code(s): N17.9 - ACUTE KIDNEY FAILURE, UNSPECIFIED (2) AMS (altered mental status) Code(s): R41.82 - ALTERED MENTAL STATUS, UNSPECIFIED (3) Anemia Code(s): D64.9 - ANEMIA, UNSPECIFIED (4) BPH (benign prostatic hyperplasia) Code(s): N40.0 - BENIGN PROSTATIC HYPERPLASIA WITHOUT LOWER URINRY TRACT SYMP (5) HLD (hyperlipidemia) Code(s): E78.5 - HYPERLIPIDEMIA, UNSPECIFIED (6) HTN (hypertension) Code(s): I10 - ESSENTIAL (PRIMARY) HYPERTENSION (7) Metabolic encephalopathy Code(s): G93.41 - METABOLIC ENCEPHALOPATHY (8) Renal failure (ARF), acute on chronic Code(s): N17.9 - ACUTE KIDNEY FAILURE, UNSPECIFIED; N18.9 - CHRONIC KIDNEY DISEASE, UNSPECIFIED (9) Schizo affective schizophrenia Code(s): F25.9 - SCHIZOAFFECTIVE DISORDER, UNSPECIFIED (10) Bipolar disease, chronic Code(s): F31.9 - BIPOLAR DISORDER, UNSPECIFIED Assessment/Plan UTI AFTAB AMS r/o Gram Pos bacteremia -- continue current antibiotics -- repeat blood cultures neg (initial likely contaminated) -- renal function improving -- wbc now normal, pt afebrile continue monitor
[2019-06-07] MEDS: ATORVASTATIN CA 10 MG TABLET (FP) PO SCH (22:01)
[2019-06-08] MEDS ORDERED: PIPERACILLIN/TAZOBACTAM 2.25 GM VIAL IVPB ONE ×3 (00:58→17:14)
[2019-06-08] MEDS ORDERED: DEXTROSE 5%-WATER - 50 ML IVPB ONE ×3 (00:59→17:14)
[2019-06-08] MEDS: PIPERACILLIN/TAZOB 2.25 GM 2.25 GM in DEXTROSE 5%-WATER - 50 ML IVPB SCH ×3 (01:01→17:23)
[2019-06-08] MEDS: DEXTROSE 5%-WATER - 1,000 ML IV SCH ×2 (05:12→09:22)
[2019-06-08] MEDS: HEPARIN NA (PORCINE) 5,000 UNITS/ML 1ML VIAL SQ SCH ×3 (05:46→23:04)
[2019-06-08] MEDS: LEVOTHYROXINE NA 125 MCG TABLET (FP) PO SCH (06:23)
[2019-06-08] MEDS: INSULIN SLIDING SCALE (NOVOLOG) 1 VIAL SQ SCH ×4 (06:24→23:02)
[2019-06-08 06:45] LABS: BASO % 0.4 % (0-2.0); EOS % 2.8 % (0-4.5); HEMATOCRIT 30.4 % (35.4-49); HEMOGLOBIN 9.3 GM/dL (11.7-16.9); LYMPH % 20.7 % (8-40); MCH 32.9 pg (25.7-33.7); MCHC 30.5 g/dl (32.0-35.9); MEAN PLT VOLUME 9.4 fl (7.5-11.1); MONO % 11.8 % (3.8-10.2); NEUT % 64.3 % (42.8-82.8); PLATELET COUNT 382 K/MM3 (134-434); RBC 2.82 M/mm3 (4.00-5.60); RDW 14.7 % (11.9-15.9); WHITE BLOOD COUNT 12.3 K/mm3 (4.0-10.0)
[2019-06-08 07:12] LABS: CALCIUM 8.3 mg/dL (8.5-10.1); CREATININE 3.2 mg/dL (0.55-1.3); TOT PROT 6.5 g/dl (6.4-8.2)
[2019-06-08 08:12] LABS: MEAN CELL VOLUME 107.8 fl (80-96)
[2019-06-08] MEDS: TAMSULOSIN HCL 0.4 MG CAP PO SCH (09:21)
[2019-06-08] MEDS: AMINO ACIDS/PROTEIN HYDROLYS 30 ML LIQUID.PKT PO SCH ×2 (09:21→18:35)
[2019-06-08] MEDS ORDERED: PT OWN MED DRAWER 7, Y5N ONE ×3 (09:32→22:47)
--- NOTE | 2019-06-08 10:03 | PN ---
Progress Note (short form) - Note Progress Note: Pt seen/ examined chart reviewed awake/ confused Vital Signs Temp 98.2 F 06/08/19 04:00 Pulse 81 06/08/19 08:00 Resp 18 06/08/19 08:30 BP 154/56 L 06/08/19 08:00 Pulse Ox 100 06/08/19 08:30 Intake & Output 06/07/19 06/07/19 06/08/19 11:59 23:59 11:59 Intake Total 1760 250 975 Balance 1760 250 975 Weight 177 lb 14.4 oz 176 lb 11.2 oz Intake: IV 1510 250 875 D5w - 1,000 ml @ 125 mls/ 1500 250 875 hr IV ASDIR [facility] Rx#: [id number] s/l 10 IVPB 50 50 Oral 200 50 Other: Voiding Method Incontinent Incontinent Incontinent # Unmeasured Voids Void 3 2 3 Bowel Movement No Yes Yes # Bowel Movements 1 2 2 Weight Measurement Method Built in Bedscale Built in Bedscale Active Medications Acetaminophen (Tylenol -) 650 mg PO Q6H PRN PRN Reason: PAIN LEVEL 1-5 Last Admin: 06/07/19 06:35 Dose: 650 mg Amino Acids (Prosource No Carb Liquid Pkt) 30 ml PO BID@0800,1730 [facility] Last Admin: 06/08/19 09:21 Dose: 30 ml Atorvastatin Calcium (Lipitor -) 10 mg PO HS [facility] Last Admin: 06/07/19 22:01 Dose: 10 mg Bacitracin (Bacitracin -) 1 applic TP BID [facility] Last Admin: 06/07/19 22:00 Dose: 1 applic Divalproex Sodium (Depakote -) 1,000 mg PO BID [facility] Last Admin: 06/07/19 22:03 Dose: 1,000 mg Heparin Sodium (Porcine) (Heparin -) 5,000 unit SQ TID [facility] Last Admin: 06/08/19 05:46 Dose: 5,000 unit Piperacillin Sod/Tazobactam (Sod 2.25 gm/ Dextrose) 50 mls @ 100 mls/hr IVPB Q8H-IV [facility]; Protocol Last Admin: 06/08/19 09:21 Dose: 100 mls/hr Dextrose (D5w -) 1,000 mls @ 125 mls/hr IV [facility]IR [facility] Last Admin: 06/08/19 09:22 Dose: 125 mls/hr Insulin Aspart (Novolog Vial Sliding Scale -) 1 vial SQ ACHS [facility]; Protocol Last Admin: 06/08/19 06:24 Dose: Not Given Levothyroxine Sodium (Synthroid -) 125 mcg PO DAILY@0700 [facility] Last Admin: 06/08/19 06:23 Dose: 125 mcg Tamsulosin HCl (Flomax -) 0.4 mg PO DAILY@0830 [facility] Last Admin: 06/08/19 09:21 Dose: 0.4 mg CBC, BMP 06/08/19 05:55 06/08/19 06:00 Microbiology 06/02/19 20:44 Blood Culture - Preliminary Blood - Peripheral Venous Staphylococcus Coagulase Neg 06/06/19 06:00 Blood Culture - Preliminary Blood - Peripheral Venous NO GROWTH OBTAINED AFTER 48 HOURS, INCUBATION TO CONTINUE FOR 3 DAYS. 06/06/19 06:08 Blood Culture - Preliminary Blood - Peripheral Venous NO GROWTH OBTAINED AFTER 48 HOURS, INCUBATION TO CONTINUE FOR 3 DAYS. 06/02/19 20:50 Blood Culture - Final Blood - Peripheral Venous NO GROWTH AFTER 5 DAYS INCUBATION Physical Exam awake / comfortable S1 S2 RRR Lungs decreased Abd- soft, obese, NT edema+ Right arm - edema-- arm in sling A/P Acute on CKD Hyperkalemia Metabolic encephalopathy Rt humerus fracture sepsis -- henley + -- monitor out put -- monitor HCT -- iv fluids -- iv antibiotics -- will continue to follow Problem List - Problems (1) Metabolic encephalopathy Code(s): G93.41 - METABOLIC ENCEPHALOPATHY (2) AFTAB (acute kidney injury) Code(s): N17.9 - ACUTE KIDNEY FAILURE, UNSPECIFIED (3) AMS (altered mental status) Code(s): R41.82 - ALTERED MENTAL STATUS, UNSPECIFIED (4) Anemia Code(s): D64.9 - ANEMIA, UNSPECIFIED (5) Bipolar disease, chronic Code(s): F31.9 - BIPOLAR DISORDER, UNSPECIFIED (6) Chronic renal failure, stage 4 (severe) Code(s): N18.4 - CHRONIC KIDNEY DISEASE, STAGE 4 (SEVERE) (7) Displaced fracture of right humerus Code(s): S42.301A - UNSP FRACTURE OF SHAFT OF HUMERUS, RIGHT ARM, INIT
[2019-06-08 11:30] LABS: ANISOCYTOSIS 2+; PLATELET ESTIMATE NORMAL
[2019-06-08] MEDS: DIVALPROEX SODIUM 500 MG TABLET E.C. PO SCH ×2 (11:34→22:55)
[2019-06-08 11:36] LABS: MACROCYTOSIS 1+
--- NOTE | 2019-06-08 12:32 | PN ---
Progress Note (short form) - Note Progress Note: Renal follow up for AFTAB/Hypernatremia Seen and examined at the bedside awake and confused no overnight events maintained on D5W making urine Vital Signs Temperature 98.4 F 06/08/19 08:00 Pulse Rate 78 06/08/19 12:00 Respiratory Rate 18 06/08/19 12:00 Blood Pressure 127/57 L 06/08/19 12:00 O2 Sat by Pulse Oximetry (%) 100 06/08/19 08:30 Intake & Output 06/05/19 06/06/19 06/07/19 06/08/19 23:59 23:59 23:59 23:59 Intake Total 3499.5 2044 2009 97 Output Total 2100 Balance 1399.5 2044 Weight 80.24 kg 81.647 kg 80.694 kg 80.15 kg No distress, confused right arm echymosis no bladder distension, henley in place no LE edema CBC, BMP 06/08/19 05:55 06/08/19 06:00 Current Medications Acetaminophen (Tylenol -) 650 mg PO Q6H PRN PRN Reason: PAIN LEVEL 1-5 Last Admin: 06/07/19 06:35 Dose: 650 mg Amino Acids (Prosource No Carb Liquid Pkt) 30 ml PO BID@0800,1730 [facility] Last Admin: 06/08/19 09:21 Dose: 30 ml Atorvastatin Calcium (Lipitor -) 10 mg PO HS [facility] Last Admin: 06/07/19 22:01 Dose: 10 mg Bacitracin (Bacitracin -) 1 applic TP BID [facility] Last Admin: 06/07/19 22:00 Dose: 1 applic Divalproex Sodium (Depakote -) 1,000 mg PO BID [facility] Last Admin: 06/08/19 11:34 Dose: 1,000 mg Heparin Sodium (Porcine) (Heparin -) 5,000 unit SQ TID [facility] Last Admin: 06/08/19 05:46 Dose: 5,000 unit Piperacillin Sod/Tazobactam (Sod 2.25 gm/ Dextrose) 50 mls @ 100 mls/hr IVPB Q8H-IV [facility]; Protocol Last Admin: 06/08/19 09:21 Dose: 100 mls/hr Dextrose (D5w -) 1,000 mls @ 125 mls/hr IV ASDIR [facility] Last Admin: 06/08/19 09:22 Dose: 125 mls/hr Insulin Aspart (Novolog Vial Sliding Scale -) 1 vial SQ ACHS [facility]; Protocol Last Admin: 06/08/19 06:24 Dose: Not Given Levothyroxine Sodium (Synthroid -) 125 mcg PO DAILY@0700 [facility] Last Admin: 06/08/19 06:23 Dose: 125 mcg Tamsulosin HCl (Flomax -) 0.4 mg PO DAILY@0830 [facility] Last Admin: 06/08/19 09:21 Dose: 0.4 mg 79 year old gentleman with history of CKD stage 4 (baseline Cr 2.5-2.9), Schizoaffective disorder, hypertension, hyperlipidemia, anemia, BPH, CAD who presented from [facility] with fever and desaturation and admitted for sepsis due to PNA with worsening renal function. 1. Acute kidney injury in setting of sepsis 2. Chronic kidney disease stage 4 3. Sepsis/PNA 4. Hypernatremia 5. Hyperkalemia 6. Hx of BPH 7. Hx of hypertension 8. Hyperlipidemia 9. Right Humerus fracture Renal function is improved and now near baseline no hyperkalemia/acidosis or need for MANAGED CARE NURSE at this time Serum Na is improving, maintain on D5W at 125cc per hour oral water and solute intake as tolerated Luis Armando Ruiz DO
[2019-06-08] MEDS: BACITRACIN 15 GM TUBE TOPICAL OINTMENT TP SCH ×2 (13:14→22:36)
--- NOTE | 2019-06-08 13:16 | PN ---
Progress Note, [employer] SPECIALIST - Note Progress Note: Selected Entries 06/05/19 06/05/19 06/05/19 09:40 10:00 12:00 Breakfast 50% 50% Lunch Temperature 98.2 F 06/05/19 06/05/19 14:00 15:21 Breakfast Lunch 25% Temperature 98.8 F Laboratory Tests 06/02/19 06/04/19 06/05/19 20:44 05:57 05:50 WBC 14.2 H 10.7 H 9.7 Laboratory Tests 06/07/19 06/08/19 11:20 05:55 WBC 8.4 12.3 H On puree/nectar thick liquids.Ensure pudding L/D ASpiration risk. Refused po for me. Oral holding for staff. Poor nutritional intake. Verbal but perseverative, at times intelligible "I dont want any" but mostly limited intelligibility/ Pt is a full code. Conside Pallioative care consult regarding pt's wishes/TF?
[2019-06-08 14:34] VITALS: BMI 31.1
--- NOTE | 2019-06-08 15:38 | PN ---
Progress Note, Physician History of Present Illness: awake confused - Current Medication List Current Medications: Active Medications Acetaminophen (Tylenol -) 650 mg PO Q6H PRN PRN Reason: PAIN LEVEL 1-5 Last Admin: 06/07/19 06:35 Dose: 650 mg Amino Acids (Prosource No Carb Liquid Pkt) 30 ml PO BID@0800,1730 [facility] Last Admin: 06/08/19 09:21 Dose: 30 ml Atorvastatin Calcium (Lipitor -) 10 mg PO HS [facility] Last Admin: 06/07/19 22:01 Dose: 10 mg Bacitracin (Bacitracin -) 1 applic TP BID [facility] Last Admin: 06/08/19 13:14 Dose: 1 applic Divalproex Sodium (Depakote -) 1,000 mg PO BID [facility] Last Admin: 06/08/19 11:34 Dose: 1,000 mg Heparin Sodium (Porcine) (Heparin -) 5,000 unit SQ TID [facility] Last Admin: 06/08/19 05:46 Dose: 5,000 unit Piperacillin Sod/Tazobactam (Sod 2.25 gm/ Dextrose) 50 mls @ 100 mls/hr IVPB Q8H-IV [facility]; Protocol Last Admin: 06/08/19 09:21 Dose: 100 mls/hr Dextrose (D5w -) 1,000 mls @ 125 mls/hr IV ASDIR [facility] Last Admin: 06/08/19 09:22 Dose: 125 mls/hr Insulin Aspart (Novolog Vial Sliding Scale -) 1 vial SQ ACHS [facility]; Protocol Last Admin: 06/08/19 13:15 Dose: Not Given Levothyroxine Sodium (Synthroid -) 125 mcg PO DAILY@0700 [facility] Last Admin: 06/08/19 06:23 Dose: 125 mcg Tamsulosin HCl (Flomax -) 0.4 mg PO DAILY@0830 [facility] Last Admin: 06/08/19 09:21 Dose: 0.4 mg - Objective Vital Signs: Vital Signs Temperature 98.4 F 06/08/19 08:00 Pulse Rate 78 06/08/19 12:00 Respiratory Rate 18 06/08/19 12:00 Blood Pressure 127/57 L 06/08/19 12:00 O2 Sat by Pulse Oximetry (%) 100 06/08/19 08:30 Constitutional: Yes: No Distress, Calm Cardiovascular: Yes: S1, S2 Respiratory: Yes: Regular, CTA Bilaterally Gastrointestinal: Yes: Normal Bowel Sounds, Soft Extremities: Yes: WNL Neurological: Yes: Alert, Confusion Psychiatric: Yes: Other Labs: CBC, BMP 06/08/19 05:55 06/08/19 06:00 INR, PTT INR 1.19 (0.83-1.09) H 06/02/19 20:44 Assessment/Plan Problem List - Problems (1) Sepsis Code(s): A41.9 - SEPSIS, UNSPECIFIED ORGANISM Qualifiers: Sepsis type: sepsis due to unspecified organism Sepsis acute organ dysfunction status: with acute organ dysfunction Severe sepsis acute organ dysfunction type: acute renal failure Acute renal failure type: unspecified Severe sepsis shock status: without septic shock Qualified Code(s): A41.9 - Sepsis, unspecified organism; R65.20 - Severe sepsis without septic shock; N17.9 - Acute kidney failure, unspecified (2) AMS (altered mental status) Code(s): R41.82 - ALTERED MENTAL STATUS, UNSPECIFIED (3) AFTAB (acute kidney injury) Code(s): N17.9 - ACUTE KIDNEY FAILURE, UNSPECIFIED (4) Hyperglycemia Code(s): R73.9 - HYPERGLYCEMIA, UNSPECIFIED (5) Renal failure (ARF), acute on chronic Code(s): N17.9 - ACUTE KIDNEY FAILURE, UNSPECIFIED; N18.9 - CHRONIC KIDNEY DISEASE, UNSPECIFIED (6) HTN (hypertension) Code(s): I10 - ESSENTIAL (PRIMARY) HYPERTENSION (7) HLD (hyperlipidemia) Code(s): E78.5 - HYPERLIPIDEMIA, UNSPECIFIED (8) Anemia Code(s): D64.9 - ANEMIA, UNSPECIFIED (9) Hypothyroidism Code(s): E03.9 - HYPOTHYROIDISM, UNSPECIFIED (10) Schizo affective schizophrenia Code(s): F25.9 - SCHIZOAFFECTIVE DISORDER, UNSPECIFIED (11) BPH (benign prostatic hyperplasia) Code(s): N40.0 - BENIGN PROSTATIC HYPERPLASIA WITHOUT LOWER URINRY TRACT SYMP (12) Hyperkalemia Code(s): E87.5 - HYPERKALEMIA (13) Hypernatremia Code(s): E87.0 - HYPEROSMOLALITY AND HYPERNATREMIA 14 gm positive bacteremia 15 uti plan continue current mgmt abx blood cx result noted urine cx noted
[2019-06-08] MEDS: ATORVASTATIN CA 10 MG TABLET (FP) PO SCH (22:45)
[2019-06-09] MEDS: PIPERACILLIN/TAZOB 2.25 GM 2.25 GM in DEXTROSE 5%-WATER - 50 ML IVPB SCH ×3 (02:50→17:37)
[2019-06-09] MEDS ORDERED: DEXTROSE 5%-WATER - 50 ML IVPB ONE ×3 (05:28→17:21)
[2019-06-09] MEDS ORDERED: PIPERACILLIN/TAZOBACTAM 2.25 GM VIAL IVPB ONE ×3 (05:28→17:21)
[2019-06-09] MEDS: HEPARIN NA (PORCINE) 5,000 UNITS/ML 1ML VIAL SQ SCH ×3 (05:50→22:06)
[2019-06-09] MEDS: INSULIN SLIDING SCALE (NOVOLOG) 1 VIAL SQ SCH ×4 (06:04→22:00)
[2019-06-09] MEDS: LEVOTHYROXINE NA 125 MCG TABLET (FP) PO SCH (06:04)
[2019-06-09] MEDS ORDERED: PT OWN MED DRAWER 7, Y5N ONE ×2 (06:10→08:43)
[2019-06-09] MEDS: TAMSULOSIN HCL 0.4 MG CAP PO SCH (09:00)
[2019-06-09] MEDS: BACITRACIN 15 GM TUBE TOPICAL OINTMENT TP SCH ×2 (09:00→22:04)
[2019-06-09] MEDS: AMINO ACIDS/PROTEIN HYDROLYS 30 ML LIQUID.PKT PO SCH ×2 (09:00→17:36)
[2019-06-09] MEDS: DIVALPROEX SODIUM 500 MG TABLET E.C. PO SCH (09:00)
[2019-06-09] MEDS: DEXTROSE 5%-WATER - 1,000 ML IV SCH ×2 (09:00→15:38)
--- NOTE | 2019-06-09 10:17 | PN ---
Progress Note (short form) - Note Progress Note: pt examined in tele- ICU awake confused baseline mentation Vital Signs - 24 hr 06/08/19 06/08/19 06/08/19 12:00 16:00 20:00 Pulse Rate 78 78 89 Respiratory 18 18 13 Rate Blood Pressure 127/57 L 148/113 H 99/60 O2 Sat by Pulse Oximetry (%) 06/08/19 06/09/19 06/09/19 21:00 00:00 04:00 Pulse Rate 89 78 Respiratory 13 20 Rate Blood Pressure 103/71 94/51 L O2 Sat by Pulse 98 Oximetry (%) 06/09/19 08:02 Pulse Rate 79 Respiratory 20 Rate Blood Pressure 90/64 O2 Sat by Pulse Oximetry (%) Current Medications Generic Name Dose Route Start Last Admin Trade Name Freq PRN Reason Stop Dose Admin Acetaminophen 650 mg 06/03/19 06:14 06/07/19 06:35 Tylenol - PO 650 mg Q6H PRN Administration PAIN LEVEL 1-5 Amino Acids 30 ml 06/04/19 17:30 06/09/19 09:00 Prosource No Carb Liquid Pkt PO 30 ml BID@0800,1730 [facility] Administration Atorvastatin Calcium 10 mg 06/03/19 22:00 06/08/19 22:45 Lipitor - PO 10 mg HS [facility] Administration Bacitracin 1 applic 06/06/19 22:00 06/09/19 09:00 Bacitracin - TP 1 applic BID [facility] Administration Divalproex Sodium 1,000 mg 06/06/19 11:45 06/09/19 09:00 Depakote - PO 1,000 mg BID [facility] Administration Heparin Sodium (Porcine) 5,000 unit 06/03/19 14:00 06/09/19 05:50 Heparin - SQ 5,000 unit TID [facility] Administration Piperacillin Sod/Tazobactam 50 mls @ 100 mls/hr 06/03/19 18:00 06/09/19 09:00 Sod 2.25 gm/ Dextrose IVPB 100 mls/hr Q8H-IV [facility] Administration Protocol Dextrose 1,000 mls @ 125 mls/hr 06/05/19 10:00 06/09/19 09:00 D5w - IV 125 mls/hr ASDIR [facility] Administration Insulin Aspart 1 vial 06/03/19 11:00 06/09/19 06:04 Novolog Vial Sliding Scale - SQ Not Given ACHS [facility] Protocol Levothyroxine Sodium 125 mcg 06/03/19 07:00 06/09/19 06:04 Synthroid - PO 125 mcg DAILY@0700 [facility] Administration Tamsulosin HCl 0.4 mg 06/03/19 08:30 06/09/19 09:00 Flomax - PO 0.4 mg DAILY@0830 [facility] Administration Laboratory Results - last 24 hr 06/08/19 06/08/19 06/08/19 05:55 12:52 18:14 Neutrophils % (Manual) 67.6 D Band Neutrophils % 0.0 Lymphocytes % (Manual) 16.7 Monocytes % (Manual) 7 Eosinophils % (Manual) 1.9 Basophils % (Manual) 0.0 Myelocytes % (Man) 2 D Promyelocytes % (Man) 0 Blast Cells % (Manual) 0 Nucleated RBC % 1 H Metamyelocytes 2 Hypochromia 0 Platelet Estimate Normal Polychromasia 2+ Poikilocytosis 0 Basophilic Stippling 1+ Anisocytosis 2+ Microcytosis 2+ Macrocytosis 1+ POC Glucometer 160 134 06/08/19 06/09/19 23:01 06:02 Neutrophils % (Manual) Band Neutrophils % Lymphocytes % (Manual) Monocytes % (Manual) Eosinophils % (Manual) Basophils % (Manual) Myelocytes % (Man) Promyelocytes % (Man) Blast Cells % (Manual) Nucleated RBC % Metamyelocytes Hypochromia Platelet Estimate Polychromasia Poikilocytosis Basophilic Stippling Anisocytosis Microcytosis Macrocytosis POC Glucometer 148 164 S1 S2 RRR Lungs decreased Abd- soft, obese, NT edema+ Right arm - edema-- arm in sling A/P Acute on CKD Hyperkalemia Metabolic encephalopathy Rt humerus fracture sepsis -- henley + -- monitor out put -- monitor HCT -- iv fluids -- iv antibiotics -- tolerating po -- encourage po liquids -- swallow eval noted -- pt baseline renal function around 2.5 -- renal sono noted -- renal eval and ID eval appreciated Problem List - Problems (1) Metabolic encephalopathy Code(s): G93.41 - METABOLIC ENCEPHALOPATHY (2) AFTAB (acute kidney injury) Code(s): N17.9 - ACUTE KIDNEY FAILURE, UNSPECIFIED (3) AMS (altered mental status) Code(s): R41.82 - ALTERED MENTAL STATUS, UNSPECIFIED (4) Anemia Code(s): D64.9 - ANEMIA, UNSPECIFIED (5) Bipolar disease, chronic Code(s): F31.9 - BIPOLAR DISORDER, UNSPECIFIED (6) Chronic renal failure, stage 4 (severe) Code(s): N18.4 - CHRONIC KIDNEY DISEASE, STAGE 4 (SEVERE) (7) Displaced fracture of right humerus Code(s): S42.301A - UNSP FRACTURE OF SHAFT OF HUMERUS, RIGHT ARM, INIT
--- NOTE | 2019-06-09 13:19 | PN ---
Progress Note (short form) - Note Progress Note: Renal follow up for AFTAB/Hypernatremia Seen and examined at the bedside awake and alert denies any pain or shortness of breath making urine tolerating oral diet on D5W Vital Signs Temperature 98.4 F 06/08/19 08:00 Pulse Rate 79 06/09/19 08:02 Respiratory Rate 20 06/09/19 08:02 Blood Pressure 90/64 06/09/19 08:02 O2 Sat by Pulse Oximetry (%) 98 06/08/19 21:00 Intake & Output 06/06/19 06/07/19 06/08/19 06/09/19 23:59 23:59 23:59 23:59 Intake Total 2044 2009 2124 1322 Balance 2044 2009 2124 1322 Weight 81.647 kg 80.694 kg 80.15 kg No distress, confused right arm echymosis no bladder distension, henley in place no LE edema CBC, BMP 06/08/19 05:55 06/08/19 06:00 Current Medications Acetaminophen (Tylenol -) 650 mg PO Q6H PRN PRN Reason: PAIN LEVEL 1-5 Last Admin: 06/07/19 06:35 Dose: 650 mg Amino Acids (Prosource No Carb Liquid Pkt) 30 ml PO BID@0800,1730 [facility] Last Admin: 06/09/19 09:00 Dose: 30 ml Atorvastatin Calcium (Lipitor -) 10 mg PO HS [facility] Last Admin: 06/08/19 22:45 Dose: 10 mg Bacitracin (Bacitracin -) 1 applic TP BID [facility] Last Admin: 06/09/19 09:00 Dose: 1 applic Divalproex Sodium (Depakote -) 1,000 mg PO BID [facility] Last Admin: 06/09/19 09:00 Dose: 1,000 mg Heparin Sodium (Porcine) (Heparin -) 5,000 unit SQ TID [facility] Last Admin: 06/09/19 05:50 Dose: 5,000 unit Piperacillin Sod/Tazobactam (Sod 2.25 gm/ Dextrose) 50 mls @ 100 mls/hr IVPB Q8H-IV [facility]; Protocol Last Admin: 06/09/19 09:00 Dose: 100 mls/hr Dextrose (D5w -) 1,000 mls @ 125 mls/hr IV ASDIR [facility] Last Admin: 06/09/19 09:00 Dose: 125 mls/hr Insulin Aspart (Novolog Vial Sliding Scale -) 1 vial SQ ACHS [facility]; Protocol Last Admin: 06/09/19 11:28 Dose: Not Given Levothyroxine Sodium (Synthroid -) 125 mcg PO DAILY@0700 [facility] Last Admin: 06/09/19 06:04 Dose: 125 mcg Tamsulosin HCl (Flomax -) 0.4 mg PO DAILY@0830 [facility] Last Admin: 06/09/19 09:00 Dose: 0.4 mg Valproate Sodium (Depakene -) 1,000 mg PO BID [facility] 79 year old gentleman with history of CKD stage 4 (baseline Cr 2.5-2.9), Schizoaffective disorder, hypertension, hyperlipidemia, anemia, BPH, CAD who presented from [place] with fever and desaturation and admitted for sepsis due to PNA with worsening renal function. 1. Acute kidney injury in setting of sepsis 2. Chronic kidney disease stage 4 3. Sepsis/PNA 4. Hypernatremia 5. Hyperkalemia 6. Hx of BPH 7. Hx of hypertension 8. Hyperlipidemia 9. Right Humerus fracture no recent labs available, ordered BMP stat can continue D5W for now, if repeat Na < 145 can discontinue IV fluids Renal function improved no overt acidosis or hyperkalemia Luis Armando Ruiz DO
[2019-06-09 14:07] LABS: BLOOD UREA NITROGEN 50.6 mg/dL (7-18); CALCIUM 8.1 mg/dL (8.5-10.1); CREATININE 3.1 mg/dL (0.55-1.3); POTASSIUM 3.9 mmol/L (3.5-5.1)
--- NOTE | 2019-06-09 15:24 | PN ---
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 Improved PO intake today, about 50 % with assistance. Encourage supplement b/n meals.
--- NOTE | 2019-06-09 17:51 | PN ---
Progress Note, Physician History of Present Illness: still confused but more awake and alert - Current Medication List Current Medications: Active Medications Acetaminophen (Tylenol -) 650 mg PO Q6H PRN PRN Reason: PAIN LEVEL 1-5 Last Admin: 06/07/19 06:35 Dose: 650 mg Amino Acids (Prosource No Carb Liquid Pkt) 30 ml PO BID@0800,1730 [facility] Last Admin: 06/09/19 17:36 Dose: 30 ml Atorvastatin Calcium (Lipitor -) 10 mg PO HS [facility] Last Admin: 06/08/19 22:45 Dose: 10 mg Bacitracin (Bacitracin -) 1 applic TP BID [facility] Last Admin: 06/09/19 09:00 Dose: 1 applic Divalproex Sodium (Depakote -) 1,000 mg PO BID [facility] Last Admin: 06/09/19 09:00 Dose: 1,000 mg Heparin Sodium (Porcine) (Heparin -) 5,000 unit SQ TID [facility] Last Admin: 06/09/19 14:30 Dose: 5,000 unit Piperacillin Sod/Tazobactam (Sod 2.25 gm/ Dextrose) 50 mls @ 100 mls/hr IVPB Q8H-IV [facility]; Protocol Last Admin: 06/09/19 17:37 Dose: 100 mls/hr Dextrose (D5w -) 1,000 mls @ 84 mls/hr IV ASDIR [facility] Last Admin: 06/09/19 15:38 Dose: 84 mls/hr Insulin Aspart (Novolog Vial Sliding Scale -) 1 vial SQ ACHS [facility]; Protocol Last Admin: 06/09/19 16:43 Dose: Not Given Levothyroxine Sodium (Synthroid -) 125 mcg PO DAILY@0700 [facility] Last Admin: 06/09/19 06:04 Dose: 125 mcg Tamsulosin HCl (Flomax -) 0.4 mg PO DAILY@0830 [facility] Last Admin: 06/09/19 09:00 Dose: 0.4 mg Valproate Sodium (Depakene -) 1,000 mg PO BID [facility] - Objective Vital Signs: Vital Signs Temperature 98.4 F 06/08/19 08:00 Pulse Rate 77 06/09/19 16:00 Respiratory Rate 20 06/09/19 16:00 Blood Pressure 95/76 06/09/19 16:00 O2 Sat by Pulse Oximetry (%) 98 06/08/19 21:00 Constitutional: Yes: No Distress, Calm Cardiovascular: Yes: S1, S2 Respiratory: Yes: Regular, CTA Bilaterally Gastrointestinal: Yes: Normal Bowel Sounds, Soft Genitourinary: Yes: Gracia Present Musculoskeletal: Yes: WNL Extremities: Yes: WNL Neurological: Yes: Alert, Other Psychiatric: Yes: Other Labs: CBC, BMP 06/08/19 05:55 06/09/19 13:25 INR, PTT INR 1.19 (0.83-1.09) H 06/02/19 20:44 Assessment/Plan Problem List - Problems (1) Sepsis Code(s): A41.9 - SEPSIS, UNSPECIFIED ORGANISM Qualifiers: Sepsis type: sepsis due to unspecified organism Sepsis acute organ dysfunction status: with acute organ dysfunction Severe sepsis acute organ dysfunction type: acute renal failure Acute renal failure type: unspecified Severe sepsis shock status: without septic shock Qualified Code(s): A41.9 - Sepsis, unspecified organism; R65.20 - Severe sepsis without septic shock; N17.9 - Acute kidney failure, unspecified (2) AMS (altered mental status) Code(s): R41.82 - ALTERED MENTAL STATUS, UNSPECIFIED (3) AFTAB (acute kidney injury) Code(s): N17.9 - ACUTE KIDNEY FAILURE, UNSPECIFIED (4) Hyperglycemia Code(s): R73.9 - HYPERGLYCEMIA, UNSPECIFIED (5) Renal failure (ARF), acute on chronic Code(s): N17.9 - ACUTE KIDNEY FAILURE, UNSPECIFIED; N18.9 - CHRONIC KIDNEY DISEASE, UNSPECIFIED (6) HTN (hypertension) Code(s): I10 - ESSENTIAL (PRIMARY) HYPERTENSION (7) HLD (hyperlipidemia) Code(s): E78.5 - HYPERLIPIDEMIA, UNSPECIFIED (8) Anemia Code(s): D64.9 - ANEMIA, UNSPECIFIED (9) Hypothyroidism Code(s): E03.9 - HYPOTHYROIDISM, UNSPECIFIED (10) Schizo affective schizophrenia Code(s): F25.9 - SCHIZOAFFECTIVE DISORDER, UNSPECIFIED (11) BPH (benign prostatic hyperplasia) Code(s): N40.0 - BENIGN PROSTATIC HYPERPLASIA WITHOUT LOWER URINRY TRACT SYMP (12) Hyperkalemia Code(s): E87.5 - HYPERKALEMIA (13) Hypernatremia Code(s): E87.0 - HYPEROSMOLALITY AND HYPERNATREMIA 14 gm positive bacteremia 15 uti plan continue abx nutrition rest as per rosa maria team
[2019-06-09 19:50] LABS: BASO % 0.3 % (0-2.0); EOS % 2.4 % (0-4.5); HEMATOCRIT 29.2 % (35.4-49); HEMOGLOBIN 8.9 GM/dL (11.7-16.9); LYMPH % 26.8 % (8-40); MCH 32.8 pg (25.7-33.7); MCHC 30.5 g/dl (32.0-35.9); MEAN CELL VOLUME 107.5 fl (80-96); MEAN PLT VOLUME 9.1 fl (7.5-11.1); MONO % 12.1 % (3.8-10.2); NEUT % 58.4 % (42.8-82.8); PLATELET COUNT 382 K/MM3 (134-434); RBC 2.71 M/mm3 (4.00-5.60); RDW 14.6 % (11.9-15.9); WHITE BLOOD COUNT 15.5 K/mm3 (4.0-10.0)
[2019-06-09 20:07] LABS: ALBUMIN 1.8 g/dl (3.4-5.0); BILIRUBIN,TOTAL 0.7 mg/dL (0.2-1); CREATININE 2.9 mg/dL (0.55-1.3); POTASSIUM 4.3 mmol/L (3.5-5.1); TOT PROT 6.2 g/dl (6.4-8.2)
[2019-06-09] MEDS ORDERED: BENZOIN/ALOE VERA/STORAX/TOLU 58 ML BOTTLE ONE (21:24)
[2019-06-09 21:43] LABS: ANISOCYTOSIS 1+; MACROCYTOSIS 2+; PLATELET ESTIMATE ADEQUATE
[2019-06-09] MEDS: VALPROATE SODIUM 250 MG/5 ML UNIT DOSE CUP PO SCH (22:04)
[2019-06-09] MEDS: ATORVASTATIN CA 10 MG TABLET (FP) PO SCH (22:06)
[2019-06-09] MEDS: ACETAMINOPHEN 325 MG TABLET (FP) PO PRN (22:09)
[2019-06-10] MEDS: PIPERACILLIN/TAZOB 2.25 GM 2.25 GM in DEXTROSE 5%-WATER - 50 ML IVPB SCH ×2 (03:00→09:35)
[2019-06-10] MEDS ORDERED: DEXTROSE 5%-WATER - 50 ML IVPB ONE ×3 (04:19→14:34)
[2019-06-10] MEDS ORDERED: PIPERACILLIN/TAZOBACTAM 2.25 GM VIAL IVPB ONE ×3 (04:19→14:34)
[2019-06-10] MEDS: DEXTROSE 5%-WATER - 1,000 ML IV SCH ×2 (04:26→15:26)
[2019-06-10] MEDS: INSULIN SLIDING SCALE (NOVOLOG) 1 VIAL SQ SCH ×4 (06:30→21:22)
[2019-06-10] MEDS: LEVOTHYROXINE NA 125 MCG TABLET (FP) PO SCH (06:30)
[2019-06-10] MEDS: HEPARIN NA (PORCINE) 5,000 UNITS/ML 1ML VIAL SQ SCH (06:30)
[2019-06-10 07:13] LABS: BASO % 0.6 % (0-2.0); EOS % 2.9 % (0-4.5); HEMOGLOBIN 8.1 GM/dL (11.7-16.9); LYMPH % 23.7 % (8-40); MCH 32.7 pg (25.7-33.7); MCHC 31.3 g/dl (32.0-35.9); MEAN CELL VOLUME 104.5 fl (80-96); MEAN PLT VOLUME 8.8 fl (7.5-11.1); MONO % 11.1 % (3.8-10.2); NEUT % 61.7 % (42.8-82.8); PLATELET COUNT 354 K/MM3 (134-434); RBC 2.49 M/mm3 (4.00-5.60); RDW 13.9 % (11.9-15.9); WHITE BLOOD COUNT 12.7 K/mm3 (4.0-10.0)
[2019-06-10 07:21] LABS: ALBUMIN 1.7 g/dl (3.4-5.0); BILIRUBIN,TOTAL 0.7 mg/dL (0.2-1); BLOOD UREA NITROGEN 48.1 mg/dL (7-18); CALCIUM 7.9 mg/dL (8.5-10.1); POTASSIUM 4.1 mmol/L (3.5-5.1); TOT PROT 5.8 g/dl (6.4-8.2)
[2019-06-10] MEDS: TAMSULOSIN HCL 0.4 MG CAP PO SCH (08:55)
[2019-06-10] MEDS: AMINO ACIDS/PROTEIN HYDROLYS 30 ML LIQUID.PKT PO SCH ×2 (08:55→17:49)
[2019-06-10] MEDS ORDERED: PT OWN MED DRAWER 7, Y5N ONE ×3 (09:28→21:32)
[2019-06-10 09:35] LABS: ANISOCYTOSIS 1+; MACROCYTOSIS 1+; PLATELET ESTIMATE NORMAL
[2019-06-10] MEDS: VALPROATE SODIUM 250 MG/5 ML UNIT DOSE CUP PO SCH ×2 (09:36→21:32)
[2019-06-10] MEDS: BACITRACIN 15 GM TUBE TOPICAL OINTMENT TP SCH ×2 (09:37→21:33)
--- NOTE | 2019-06-10 12:18 | PN ---
Progress Note (short form) - Note Progress Note: Pt seen/ examined chart is reviewed more awake no distress afebrile repeat culture -ve so far Vital Signs Temp 98 F 06/10/19 08:00 Pulse 79 06/10/19 08:00 Resp 16 06/10/19 09:00 BP 111/89 06/10/19 08:00 Pulse Ox 98 06/10/19 09:00 Intake & Output 06/09/19 06/10/19 06/10/19 23:59 11:59 23:59 Intake Total 850 1258 Output Total 600 Balance 850 658 Intake: IV 750 1008 D5w - 1,000 ml @ 125 mls/ 750 hr IV ASDIR [facility] Rx#: [id number] D5w - 1,000 ml @ 84 mls/ 1008 hr IV ASDIR [facility] Rx#: [id number] IVPB 100 50 Oral 200 Output: Urine 600 External Catheter 600 Other: Voiding Method External Catheter External Catheter # Unmeasured Voids Void 1 Bowel Movement No Active Medications Acetaminophen (Tylenol -) 650 mg PO Q6H PRN PRN Reason: PAIN LEVEL 1-5 Last Admin: 06/09/19 22:09 Dose: 650 mg Amino Acids (Prosource No Carb Liquid Pkt) 30 ml PO BID@0800,1730 [facility] Last Admin: 06/10/19 08:55 Dose: 30 ml Atorvastatin Calcium (Lipitor -) 10 mg PO HS [facility] Last Admin: 06/09/19 22:06 Dose: 10 mg Bacitracin (Bacitracin -) 1 applic TP BID [facility] Last Admin: 06/10/19 09:37 Dose: 1 applic Heparin Sodium (Porcine) (Heparin -) 5,000 unit SQ TID [facility] Last Admin: 06/10/19 06:30 Dose: 5,000 unit Piperacillin Sod/Tazobactam (Sod 2.25 gm/ Dextrose) 50 mls @ 100 mls/hr IVPB Q8H-IV [facility]; Protocol Last Admin: 06/10/19 09:35 Dose: 100 mls/hr Dextrose (D5w -) 1,000 mls @ 84 mls/hr IV ASDIR [facility] Last Admin: 06/10/19 04:26 Dose: 84 mls/hr Insulin Aspart (Novolog Vial Sliding Scale -) 1 vial SQ ACHS [facility]; Protocol Last Admin: 06/10/19 06:30 Dose: Not Given Levothyroxine Sodium (Synthroid -) 125 mcg PO DAILY@0700 [facility] Last Admin: 06/10/19 06:30 Dose: 125 mcg Tamsulosin HCl (Flomax -) 0.4 mg PO DAILY@0830 [facility] Last Admin: 06/10/19 08:55 Dose: 0.4 mg Valproate Sodium (Depakene -) 1,000 mg PO BID [facility] Last Admin: 06/10/19 09:36 Dose: 1,000 mg CBC, BMP 06/10/19 06:22 06/10/19 06:22 Microbiology 06/06/19 06:00 Blood Culture - Preliminary Blood - Peripheral Venous NO GROWTH OBTAINED AFTER 96 HOURS, INCUBATION TO CONTINUE FOR 1 DAYS. 06/06/19 06:08 Blood Culture - Preliminary Blood - Peripheral Venous NO GROWTH OBTAINED AFTER 96 HOURS, INCUBATION TO CONTINUE FOR 1 DAYS. Physical Exam. awake / comfortable S1 S2 RRR Lungs decreased Abd- soft, obese, NT edema+ Right arm - edema-- arm in sling A/P Acute on CKD Hyperkalemia Metabolic encephalopathy Rt humerus fracture sepsis -- henley + -- monitor out put -- monitor HCT -- iv fluids -- iv antibiotics-- per i/d repeat cultures -ve -- will continue to follow - D/w pts sister in detail today also Problem List - Problems (1) Metabolic encephalopathy Code(s): G93.41 - METABOLIC ENCEPHALOPATHY (2) AFTAB (acute kidney injury) Code(s): N17.9 - ACUTE KIDNEY FAILURE, UNSPECIFIED (3) AMS (altered mental status) Code(s): R41.82 - ALTERED MENTAL STATUS, UNSPECIFIED (4) Anemia Code(s): D64.9 - ANEMIA, UNSPECIFIED (5) Bipolar disease, chronic Code(s): F31.9 - BIPOLAR DISORDER, UNSPECIFIED (6) Chronic renal failure, stage 4 (severe) Code(s): N18.4 - CHRONIC KIDNEY DISEASE, STAGE 4 (SEVERE) (7) Displaced fracture of right humerus Code(s): S42.301A - UNSP FRACTURE OF SHAFT OF HUMERUS, RIGHT ARM, INIT
--- NOTE | 2019-06-10 14:58 | PN ---
Progress Note (short form) - Note Progress Note: Renal follow up for AFTAB/Hypernatremia Seen and examined at the bedside awake and alert no complaints nurse reports slightly loose stools is eating on IVF Vital Signs Temperature 98.1 F 06/10/19 14:00 Pulse Rate 77 06/10/19 14:00 Respiratory Rate 12 06/10/19 14:00 Blood Pressure 89/48 L 06/10/19 14:00 O2 Sat by Pulse Oximetry (%) 98 06/10/19 09:00 Intake & Output 06/07/19 06/08/19 06/09/19 06/10/19 23:59 23:59 23:59 23:59 Intake Total 2009 2124 2172 1258 Output Total 600 Balance 2009 2124 2172 658 Weight 80.694 kg 80.15 kg No distress, confused right arm echymosis no bladder distension, henley in place no LE edema CBC, BMP 06/10/19 06:22 06/10/19 06:22 Current Medications Acetaminophen (Tylenol -) 650 mg PO Q6H PRN PRN Reason: PAIN LEVEL 1-5 Last Admin: 06/09/19 22:09 Dose: 650 mg Amino Acids (Prosource No Carb Liquid Pkt) 30 ml PO BID@0800,1730 [facility] Last Admin: 06/10/19 08:55 Dose: 30 ml Atorvastatin Calcium (Lipitor -) 10 mg PO HS [facility] Last Admin: 06/09/19 22:06 Dose: 10 mg Bacitracin (Bacitracin -) 1 applic TP BID [facility] Last Admin: 06/10/19 09:37 Dose: 1 applic Piperacillin Sod/Tazobactam (Sod 2.25 gm/ Dextrose) 50 mls @ 100 mls/hr IVPB Q8H-IV [facility]; Protocol Last Admin: 06/10/19 09:35 Dose: 100 mls/hr Dextrose (D5w -) 1,000 mls @ 84 mls/hr IV ASDIR [facility] Last Admin: 06/10/19 04:26 Dose: 84 mls/hr Insulin Aspart (Novolog Vial Sliding Scale -) 1 vial SQ ACHS [facility]; Protocol Last Admin: 06/10/19 06:30 Dose: Not Given Levothyroxine Sodium (Synthroid -) 125 mcg PO DAILY@0700 [facility] Last Admin: 12/25/19 06:30 Dose: 125 mcg Tamsulosin HCl (Flomax -) 0.4 mg PO DAILY@0830 [facility] Last Admin: 06/10/19 08:55 Dose: 0.4 mg Valproate Sodium (Depakene -) 1,000 mg PO BID [facility] Last Admin: 06/10/19 09:36 Dose: 1,000 mg 79 year old gentleman with history of CKD stage 4 (baseline Cr 2.5-2.9), Schizoaffective disorder, hypertension, hyperlipidemia, anemia, BPH, CAD who presented from [place] with fever and desaturation and admitted for sepsis due to PNA with worsening renal function. 1. Acute kidney injury in setting of sepsis 2. Chronic kidney disease stage 4 3. Sepsis/PNA 4. Hypernatremia 5. Hyperkalemia 6. Hx of BPH 7. Hx of hypertension 8. Hyperlipidemia 9. Right Humerus fracture Renal function improved and likely at baseline serum Na remains elevated, maintain on D5W until Na < 145 oral water and solute intake as tolerated continue Abx as per primary team Luis Armando Ruiz DO
[2019-06-10] MEDS: ATORVASTATIN CA 10 MG TABLET (FP) PO SCH (21:33)
[2019-06-11] MEDS: INSULIN SLIDING SCALE (NOVOLOG) 1 VIAL SQ SCH ×4 (06:17→21:09)
[2019-06-11] MEDS: DEXTROSE 5%-WATER - 1,000 ML IV SCH ×2 (06:18→16:18)
[2019-06-11] MEDS: LEVOTHYROXINE NA 125 MCG TABLET (FP) PO SCH (06:19)
[2019-06-11] MEDS: AMINO ACIDS/PROTEIN HYDROLYS 30 ML LIQUID.PKT PO SCH ×2 (08:35→21:12)
[2019-06-11] MEDS: TAMSULOSIN HCL 0.4 MG CAP PO SCH (08:35)
[2019-06-11] MEDS ORDERED: PT OWN MED DRAWER 7, Y5N ONE ×2 (08:40→09:16)
[2019-06-11] MEDS: VALPROATE SODIUM 250 MG/5 ML UNIT DOSE CUP PO SCH ×2 (09:30→21:11)
[2019-06-11] MEDS: BACITRACIN 15 GM TUBE TOPICAL OINTMENT TP SCH ×2 (09:30→21:10)
--- NOTE | 2019-06-11 09:45 | PN ---
Progress Note (short form) - Note Progress Note: patient seen and examined today More alert and awake Engaged in meaningful conversation--- small denies pain Afebrile Vital Signs Temp 98.3 F 06/11/19 04:00 Pulse 88 06/11/19 04:00 Resp 14 06/11/19 09:33 BP 98/50 L 06/11/19 09:33 Pulse Ox 98 06/10/19 23:24 Intake & Output 06/10/19 06/10/19 06/11/19 11:59 23:59 11:59 Intake Total 1258 1208 Output Total 600 900 Balance 658 -900 1208 Intake: IV 1008 1008 D5w - 1,000 ml @ 84 mls/ 1008 1008 hr IV ASDIR [facility] Rx#: [id number] IVPB 50 Oral 200 200 Output: Urine 600 900 External Catheter 600 900 Other: Voiding Method External Catheter External Catheter Diaper # Unmeasured Voids External Catheter 3 Bowel Movement No Yes: 1 Active Medications Acetaminophen (Tylenol -) 650 mg PO Q6H PRN PRN Reason: PAIN LEVEL 1-5 Last Admin: 06/09/19 22:09 Dose: 650 mg Amino Acids (Prosource No Carb Liquid Pkt) 30 ml PO BID@0800,1730 [facility] Last Admin: 06/11/19 08:35 Dose: 30 ml Atorvastatin Calcium (Lipitor -) 10 mg PO HS [facility] Last Admin: 06/10/19 21:33 Dose: 10 mg Bacitracin (Bacitracin -) 1 applic TP BID [facility] Last Admin: 06/11/19 09:30 Dose: 1 applic Dextrose (D5w -) 1,000 mls @ 84 mls/hr IV ASDIR [facility] Last Admin: 06/11/19 06:18 Dose: 84 mls/hr Insulin Aspart (Novolog Vial Sliding Scale -) 1 vial SQ [facility]; Protocol Last Admin: 06/11/19 06:17 Dose: Not Given Levothyroxine Sodium (Synthroid -) 125 mcg PO DAILY@0700 [facility] Last Admin: 06/11/19 06:19 Dose: 125 mcg Tamsulosin HCl (Flomax -) 0.4 mg PO DAILY@0830 [facility] Last Admin: 06/11/19 08:35 Dose: 0.4 mg Valproate Sodium (Depakene -) 1,000 mg PO BID [facility] Last Admin: 06/11/19 09:30 Dose: 1,000 mg CBC, BMP 06/10/19 06:22 06/10/19 06:22 Microbiology 06/06/19 06:00 Blood Culture - Final Blood - Peripheral Venous NO GROWTH AFTER 5 DAYS INCUBATION 06/06/19 06:08 Blood Culture - Final Blood - Peripheral Venous NO GROWTH AFTER 5 DAYS INCUBATION Physical Exam. awake / comfortable S1 S2 RRR Lungs decreased At bases Abd- soft, obese, NT edema+ Right arm - edema-- arm in sling A/P Acute on CKD Hyperkalemia Metabolic encephalopathy Rt humerus fracture sepsis -- henley + -- monitor out put -- monitor HCT -- iv fluids -- iv antibiotics-- per i/d repeat cultures -ve -- will continue to follow -overall better Problem List - Problems (1) Metabolic encephalopathy Code(s): G93.41 - METABOLIC ENCEPHALOPATHY (2) AFTAB (acute kidney injury) Code(s): N17.9 - ACUTE KIDNEY FAILURE, UNSPECIFIED (3) AMS (altered mental status) Code(s): R41.82 - ALTERED MENTAL STATUS, UNSPECIFIED (4) Anemia Code(s): D64.9 - ANEMIA, UNSPECIFIED (5) Bipolar disease, chronic Code(s): F31.9 - BIPOLAR DISORDER, UNSPECIFIED (6) Chronic renal failure, stage 4 (severe) Code(s): N18.4 - CHRONIC KIDNEY DISEASE, STAGE 4 (SEVERE) (7) Displaced fracture of right humerus Code(s): S42.301A - UNSP FRACTURE OF SHAFT OF HUMERUS, RIGHT ARM, INIT
--- NOTE | 2019-06-11 11:56 | PN ---
Progress Note (short form) - Note Progress Note: Renal follow up for AFTAB/Hypernatremia Seen and examined at the bedside awake and alert no overnight events on IVF: D5 no N/V/D eating a little Vital Signs Temperature 98.1 F 06/10/19 14:00 Pulse Rate 77 06/10/19 14:00 Respiratory Rate 12 06/10/19 14:00 Blood Pressure 89/48 L 06/10/19 14:00 O2 Sat by Pulse Oximetry (%) 98 06/10/19 09:00 Intake & Output 06/07/19 06/08/19 06/09/19 06/10/19 23:59 23:59 23:59 23:59 Intake Total 2009 2124 2172 1258 Output Total 600 Balance 2009 2124 2172 65 Weight 80.694 kg 80.15 kg No distress, confused no LE edema CBC, BMP 06/10/19 06:22 06/10/19 06:22 Current Medications Acetaminophen (Tylenol -) 650 mg PO Q6H PRN PRN Reason: PAIN LEVEL 1-5 Last Admin: 06/09/19 22:09 Dose: 650 mg Amino Acids (Prosource No Carb Liquid Pkt) 30 ml PO BID@0800,1730 [facility] Last Admin: 06/11/19 08:35 Dose: 30 ml Atorvastatin Calcium (Lipitor -) 10 mg PO HS [facility] Last Admin: 06/10/19 21:33 Dose: 10 mg Bacitracin (Bacitracin -) 1 applic TP BID [facility] Last Admin: 06/11/19 09:30 Dose: 1 applic Dextrose (D5w -) 1,000 mls @ 84 mls/hr IV ASDIR [facility] Last Admin: 06/11/19 06:18 Dose: 84 mls/hr Insulin Aspart (Novolog Vial Sliding Scale -) 1 vial SQ ACHS [facility]; Protocol Last Admin: 06/11/19 06:17 Dose: Not Given Levothyroxine Sodium (Synthroid -) 125 mcg PO DAILY@0700 [facility] Last Admin: 06/11/19 06:19 Dose: 125 mcg Tamsulosin HCl (Flomax -) 0.4 mg PO DAILY@0830 [facility] Last Admin: 06/11/19 08:35 Dose: 0.4 mg Valproate Sodium (Depakene -) 1,000 mg PO BID [facility] Last Admin: 06/11/19 09:30 Dose: 1,000 mg 79 year old gentleman with history of CKD stage 4 (baseline Cr 2.5-2.9), Schizoaffective disorder, hypertension, hyperlipidemia, anemia, BPH, CAD who presented from [place] with fever and desaturation and admitted for sepsis due to PNA with worsening renal function. 1. Acute kidney injury in setting of sepsis 2. Chronic kidney disease stage 4 3. Sepsis/PNA 4. Hypernatremia 5. Hyperkalemia 6. Hx of BPH 7. Hx of hypertension 8. Hyperlipidemia 9. Right Humerus fracture 10. Anemia Renal function at baseline Serum Na is overall improved. No new labs today. Will order BMP. Continue D5W until Na < 145. [place] oral water and solute intake. Check iron studies for Anemia, if iron saturation is at goal can plan to give STEPHAN. Luis Armando Ruiz DO
--- NOTE | 2019-06-11 12:24 | PN ---
Progress Note, Physician History of Present Illness: stable more awake and alert - Current Medication List Current Medications: Active Medications Acetaminophen (Tylenol -) 650 mg PO Q6H PRN PRN Reason: PAIN LEVEL 1-5 Last Admin: 06/09/19 22:09 Dose: 650 mg Amino Acids (Prosource No Carb Liquid Pkt) 30 ml PO BID@0800,1730 [facility] Last Admin: 06/11/19 08:35 Dose: 30 ml Atorvastatin Calcium (Lipitor -) 10 mg PO HS [facility] Last Admin: 06/10/19 21:33 Dose: 10 mg Bacitracin (Bacitracin -) 1 applic TP BID [facility] Last Admin: 06/11/19 09:30 Dose: 1 applic Dextrose (D5w -) 1,000 mls @ 84 mls/hr IV ASDIR [facility] Last Admin: 06/11/19 06:18 Dose: 84 mls/hr Insulin Aspart (Novolog Vial Sliding Scale -) 1 vial SQ [facility]; Protocol Last Admin: 06/11/19 06:17 Dose: Not Given Levothyroxine Sodium (Synthroid -) 125 mcg PO DAILY@0700 [facility] Last Admin: 06/11/19 06:19 Dose: 125 mcg Tamsulosin HCl (Flomax -) 0.4 mg PO DAILY@0830 [facility] Last Admin: 06/11/19 08:35 Dose: 0.4 mg Valproate Sodium (Depakene -) 1,000 mg PO BID [facility] Last Admin: 06/11/19 09:30 Dose: 1,000 mg - Objective Vital Signs: Vital Signs Temperature 98.3 F 06/11/19 04:00 Pulse Rate 88 06/11/19 04:00 Respiratory Rate 14 06/11/19 09:33 Blood Pressure 98/50 L 06/11/19 09:33 O2 Sat by Pulse Oximetry (%) 98 06/10/19 23:24 Constitutional: Yes: No Distress, Calm Cardiovascular: Yes: S1, S2 Respiratory: Yes: Regular, CTA Bilaterally Gastrointestinal: Yes: Normal Bowel Sounds, Soft Musculoskeletal: Yes: WNL Extremities: Yes: WNL Neurological: Yes: Alert Psychiatric: Yes: Other Labs: CBC, BMP 06/10/19 06:22 06/10/19 06:22 INR, PTT INR 1.19 (0.83-1.09) H 12/17/19 20:44 Assessment/Plan Problem List - Problems (1) Sepsis Code(s): A41.9 - SEPSIS, UNSPECIFIED ORGANISM Qualifiers: Sepsis type: sepsis due to unspecified organism Sepsis acute organ dysfunction status: with acute organ dysfunction Severe sepsis acute organ dysfunction type: acute renal failure Acute renal failure type: unspecified Severe sepsis shock status: without septic shock Qualified Code(s): A41.9 - Sepsis, unspecified organism; R65.20 - Severe sepsis without septic shock; N17.9 - Acute kidney failure, unspecified (2) AMS (altered mental status) Code(s): R41.82 - ALTERED MENTAL STATUS, UNSPECIFIED (3) AFTAB (acute kidney injury) Code(s): N17.9 - ACUTE KIDNEY FAILURE, UNSPECIFIED (4) Hyperglycemia Code(s): R73.9 - HYPERGLYCEMIA, UNSPECIFIED (5) Renal failure (ARF), acute on chronic Code(s): N17.9 - ACUTE KIDNEY FAILURE, UNSPECIFIED; N18.9 - CHRONIC KIDNEY DISEASE, UNSPECIFIED (6) HTN (hypertension) Code(s): I10 - ESSENTIAL (PRIMARY) HYPERTENSION (7) HLD (hyperlipidemia) Code(s): E78.5 - HYPERLIPIDEMIA, UNSPECIFIED (8) Anemia Code(s): D64.9 - ANEMIA, UNSPECIFIED (9) Hypothyroidism Code(s): E03.9 - HYPOTHYROIDISM, UNSPECIFIED (10) Schizo affective schizophrenia Code(s): F25.9 - SCHIZOAFFECTIVE DISORDER, UNSPECIFIED (11) BPH (benign prostatic hyperplasia) Code(s): N40.0 - BENIGN PROSTATIC HYPERPLASIA WITHOUT LOWER URINRY TRACT SYMP (12) Hyperkalemia Code(s): E87.5 - HYPERKALEMIA (13) Hypernatremia Code(s): E87.0 - HYPEROSMOLALITY AND HYPERNATREMIA 14 gm positive bacteremia 15 uti plan wbc trending down if wbc starts increasing will restart abx monitor mental status rest as per the team
--- NOTE | 2019-06-11 12:37 | PN ---
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 Continue diet for now. For possible upgrade as pt continues to improve.
[2019-06-11 13:52] LABS: BLOOD UREA NITROGEN 42.6 mg/dL (7-18); CALCIUM 8.1 mg/dL (8.5-10.1); CREATININE 2.6 mg/dL (0.55-1.3); POTASSIUM 3.8 mmol/L (3.5-5.1)
[2019-06-11] MEDS: ATORVASTATIN CA 10 MG TABLET (FP) PO SCH (21:12)
[2019-06-12] MEDS: INSULIN SLIDING SCALE (NOVOLOG) 1 VIAL SQ SCH ×4 (06:31→23:40)
[2019-06-12] MEDS: LEVOTHYROXINE NA 125 MCG TABLET (FP) PO SCH (06:31)
[2019-06-12 06:34] LABS: BASO % 0.5 % (0-2.0); EOS % 2.8 % (0-4.5); HEMATOCRIT 26.6 % (35.4-49); HEMOGLOBIN 8.4 GM/dL (11.7-16.9); LYMPH % 24.4 % (8-40); MCH 33.2 pg (25.7-33.7); MCHC 31.8 g/dl (32.0-35.9); MEAN CELL VOLUME 104.6 fl (80-96); MEAN PLT VOLUME 8.9 fl (7.5-11.1); MONO % 9.7 % (3.8-10.2); NEUT % 62.6 % (42.8-82.8); PLATELET COUNT 342 K/MM3 (134-434); RBC 2.54 M/mm3 (4.00-5.60); WHITE BLOOD COUNT 9.1 K/mm3 (4.0-10.0)
[2019-06-12 08:35] LABS: ALBUMIN 1.8 g/dl (3.4-5.0); BILIRUBIN,TOTAL 0.5 mg/dL (0.2-1); BLOOD UREA NITROGEN 42.8 mg/dL (7-18); CALCIUM 8.1 mg/dL (8.5-10.1); CREATININE 2.6 mg/dL (0.55-1.3); MAGNESIUM 2.9 mg/dL (1.8-2.4); PHOSPHOROUS 3.8 mg/dL (2.5-4.9); POTASSIUM 3.8 mmol/L (3.5-5.1)
--- NOTE | 2019-06-12 10:02 | PN ---
Progress Note (short form) - Note Progress Note: pt seen/ examined today awake/ comfortable says having diarrhea more alert/ awake afebrile off abx Vital Signs Temp 98.3 F 06/12/19 06:32 Pulse 84 06/12/19 08:31 Resp 20 06/12/19 08:31 BP 94/57 L 06/12/19 08:31 Pulse Ox 97 06/12/19 08:10 Intake & Output 06/11/19 06/11/19 06/12/19 11:59 23:59 11:59 Intake Total 2390 177 9005 Balance 8307 176 7024 Intake: IV 1008 924 D5w - 1,000 ml @ 84 mls/ 1008 924 hr IV ASDIR [facility] Rx#: [id number] Oral 200 280 100 Other: Voiding Method Diaper Diaper Diaper # Unmeasured Voids External Catheter 3 3 Void 2 2 Bowel Movement Yes: 1 Yes Yes # Bowel Movements 1 Active Medications Acetaminophen (Tylenol -) 650 mg PO Q6H PRN PRN Reason: PAIN LEVEL 1-5 Last Admin: 06/09/19 22:09 Dose: 650 mg Amino Acids (Prosource No Carb Liquid Pkt) 30 ml PO BID@0800,1730 [facility] Last Admin: 06/11/19 21:12 Dose: 30 ml Atorvastatin Calcium (Lipitor -) 10 mg PO HS [facility] Last Admin: 06/11/19 21:12 Dose: 10 mg Bacitracin (Bacitracin -) 1 applic TP BID [facility] Last Admin: 06/11/19 21:10 Dose: 1 applic Dextrose (D5w -) 1,000 mls @ 84 mls/hr IV ASDIR [facility] Last Admin: 06/11/19 16:18 Dose: 84 mls/hr Insulin Aspart (Novolog Vial Sliding Scale -) 1 vial SQ [facility]; Protocol Last Admin: 06/12/19 06:31 Dose: Not Given Levothyroxine Sodium (Synthroid -) 125 mcg PO DAILY@0700 [facility] Last Admin: 06/12/19 06:31 Dose: 125 mcg Tamsulosin HCl (Flomax -) 0.4 mg PO DAILY@0830 [facility] Last Admin: 06/11/19 08:35 Dose: 0.4 mg Valproate Sodium (Depakene -) 1,000 mg PO BID [facility] Last Admin: 06/11/19 21:11 Dose: 1,000 mg CBC, BMP 06/12/19 06:10 06/12/19 06:10 Microbiology 06/06/19 06:00 Blood Culture - Final Blood - Peripheral Venous NO GROWTH AFTER 5 DAYS INCUBATION 06/06/19 06:08 Blood Culture - Final Blood - Peripheral Venous NO GROWTH AFTER 5 DAYS INCUBATION Physical Exam. awake / comfortable S1 S2 RRR Lungs decreased At bases Abd- soft, obese, NT edema+ Right arm - edema-- A/P Acute on CKD Hyperkalemia Metabolic encephalopathy Rt humerus fracture sepsis -- henley + -- monitor out put -- monitor HCT -- iv fluids -- off abx ---repeat cultures -ve -- will continue to follow ---overall better will check for c diff oob - chair PT d/c planning if continue to improve Problem List - Problems (1) Metabolic encephalopathy Code(s): G93.41 - METABOLIC ENCEPHALOPATHY (2) AFTAB (acute kidney injury) Code(s): N17.9 - ACUTE KIDNEY FAILURE, UNSPECIFIED (3) AMS (altered mental status) Code(s): R41.82 - ALTERED MENTAL STATUS, UNSPECIFIED (4) Anemia Code(s): D64.9 - ANEMIA, UNSPECIFIED (5) Bipolar disease, chronic Code(s): F31.9 - BIPOLAR DISORDER, UNSPECIFIED (6) Chronic renal failure, stage 4 (severe) Code(s): N18.4 - CHRONIC KIDNEY DISEASE, STAGE 4 (SEVERE) (7) Displaced fracture of right humerus Code(s): S42.301A - UNSP FRACTURE OF SHAFT OF HUMERUS, RIGHT ARM, INIT
[2019-06-12] MEDS ORDERED: PT OWN MED DRAWER 7, Y5N ONE (10:33)
[2019-06-12] MEDS: VALPROATE SODIUM 250 MG/5 ML UNIT DOSE CUP PO SCH ×2 (10:35→21:50)
[2019-06-12] MEDS: AMINO ACIDS/PROTEIN HYDROLYS 30 ML LIQUID.PKT PO SCH ×2 (10:37→17:52)
[2019-06-12] MEDS: TAMSULOSIN HCL 0.4 MG CAP PO SCH (10:37)
[2019-06-12 10:46] LABS: ANISOCYTOSIS 1+; MACROCYTOSIS 1+; PLATELET ESTIMATE ADEQUATE
[2019-06-12] MEDS: BACITRACIN 15 GM TUBE TOPICAL OINTMENT TP SCH ×2 (10:51→21:49)
--- NOTE | 2019-06-12 13:23 | PN ---
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 Articulation is reduced in rate. Eating about 50% dependent on the meal and some supplements. Edentulous. Continue diet as ordered.
--- NOTE | 2019-06-12 15:22 | PN ---
Progress Note, Physician History of Present Illness: stable no new issues dirrhoea - Current Medication List Current Medications: Active Medications Acetaminophen (Tylenol -) 650 mg PO Q6H PRN PRN Reason: PAIN LEVEL 1-5 Last Admin: 06/09/19 22:09 Dose: 650 mg Amino Acids (Prosource No Carb Liquid Pkt) 30 ml PO BID@0800,1730 [facility] Last Admin: 06/12/19 10:37 Dose: 30 ml Atorvastatin Calcium (Lipitor -) 10 mg PO HS [facility] Last Admin: 06/11/19 21:12 Dose: 10 mg Bacitracin (Bacitracin -) 1 applic TP BID [facility] Last Admin: 06/12/19 10:51 Dose: 1 applic Dextrose (D5w -) 1,000 mls @ 84 mls/hr IV ASDIR [facility] Last Admin: 06/11/19 16:18 Dose: 84 mls/hr Insulin Aspart (Novolog Vial Sliding Scale -) 1 vial SQ [facility]; Protocol Last Admin: 06/12/19 14:17 Dose: Not Given Levothyroxine Sodium (Synthroid -) 125 mcg PO DAILY@0700 [facility] Last Admin: 06/12/19 06:31 Dose: 125 mcg Tamsulosin HCl (Flomax -) 0.4 mg PO DAILY@0830 [facility] Last Admin: 06/12/19 10:37 Dose: 0.4 mg Valproate Sodium (Depakene -) 1,000 mg PO BID [facility] Last Admin: 06/12/19 10:35 Dose: 1,000 mg - Objective Vital Signs: Vital Signs Temperature 9804 F H 06/12/19 12:00 Pulse Rate 68 06/12/19 12:00 Respiratory Rate 18 06/12/19 12:00 Blood Pressure 95/59 L 06/12/19 12:00 O2 Sat by Pulse Oximetry (%) 97 06/12/19 08:10 Constitutional: Yes: Calm Cardiovascular: Yes: S1, S2 Respiratory: Yes: Regular, CTA Bilaterally Musculoskeletal: Yes: WNL Extremities: Yes: WNL Neurological: Yes: Alert Labs: CBC, BMP 06/12/19 06:10 06/12/19 06:10 INR, PTT INR 1.19 (0.83-1.09) H 06/02/19 20:44 Assessment/Plan Problem List - Problems (1) Sepsis Code(s): A41.9 - SEPSIS, UNSPECIFIED ORGANISM Qualifiers: Sepsis type: sepsis due to unspecified organism Sepsis acute organ dysfunction status: with acute organ dysfunction Severe sepsis acute organ dysfunction type: acute renal failure Acute renal failure type: unspecified Severe sepsis shock status: without septic shock Qualified Code(s): A41.9 - Sepsis, unspecified organism; R65.20 - Severe sepsis without septic shock; N17.9 - Acute kidney failure, unspecified (2) AMS (altered mental status) Code(s): R41.82 - ALTERED MENTAL STATUS, UNSPECIFIED (3) AFTAB (acute kidney injury) Code(s): N17.9 - ACUTE KIDNEY FAILURE, UNSPECIFIED (4) Hyperglycemia Code(s): R73.9 - HYPERGLYCEMIA, UNSPECIFIED (5) Renal failure (ARF), acute on chronic Code(s): N17.9 - ACUTE KIDNEY FAILURE, UNSPECIFIED; N18.9 - CHRONIC KIDNEY DISEASE, UNSPECIFIED (6) HTN (hypertension) Code(s): I10 - ESSENTIAL (PRIMARY) HYPERTENSION (7) HLD (hyperlipidemia) Code(s): E78.5 - HYPERLIPIDEMIA, UNSPECIFIED (8) Anemia Code(s): D64.9 - ANEMIA, UNSPECIFIED (9) Hypothyroidism Code(s): E03.9 - HYPOTHYROIDISM, UNSPECIFIED (10) Schizo affective schizophrenia Code(s): F25.9 - SCHIZOAFFECTIVE DISORDER, UNSPECIFIED (11) BPH (benign prostatic hyperplasia) Code(s): N40.0 - BENIGN PROSTATIC HYPERPLASIA WITHOUT LOWER URINRY TRACT SYMP (12) Hyperkalemia Code(s): E87.5 - HYPERKALEMIA (13) Hypernatremia Code(s): E87.0 - HYPEROSMOLALITY AND HYPERNATREMIA 14 gm positive bacteremia 15 uti plan wbc normalized monitor dirrhoea' rest as per the team
--- NOTE | 2019-06-12 17:54 | PN ---
Progress Note (short form) - Note Progress Note: Renal follow up for AFTAB/Hypernatremia Seen and examined at the bedside awake and alert appetite remains poor and drinking very little as per nurse making urine has been off IVF Vital Signs Temperature 9804 F H 06/12/19 12:00 Pulse Rate 70 06/12/19 16:00 Respiratory Rate 16 06/12/19 16:00 Blood Pressure 111/45 L 06/12/19 16:00 O2 Sat by Pulse Oximetry (%) 97 06/12/19 08:10 Intake & Output 06/09/19 06/10/19 06/11/19 06/12/19 23:59 23:59 23:59 23:59 Intake Total 2173 1258 1488 1224 Output Total 1500 Balance 2173 -242 1488 1224 No distress, confused no LE edema CBC, BMP 06/12/19 06:10 06/12/19 06:10 Current Medications Acetaminophen (Tylenol -) 650 mg PO Q6H PRN PRN Reason: PAIN LEVEL 1-5 Last Admin: 06/09/19 22:09 Dose: 650 mg Amino Acids (Prosource No Carb Liquid Pkt) 30 ml PO BID@0800,1730 [facility] Last Admin: 06/12/19 10:37 Dose: 30 ml Atorvastatin Calcium (Lipitor -) 10 mg PO HS [facility] Last Admin: 06/11/19 21:12 Dose: 10 mg Bacitracin (Bacitracin -) 1 applic TP BID [facility] Last Admin: 06/12/19 10:51 Dose: 1 applic Insulin Aspart (Novolog Vial Sliding Scale -) 1 vial SQ ACHS [facility]; Protocol Last Admin: 06/12/19 14:17 Dose: Not Given Levothyroxine Sodium (Synthroid -) 125 mcg PO DAILY@0700 [facility] Last Admin: 06/12/19 06:31 Dose: 125 mcg Tamsulosin HCl (Flomax -) 0.4 mg PO DAILY@0830 [facility] Last Admin: 06/12/19 10:37 Dose: 0.4 mg Valproate Sodium (Depakene -) 1,000 mg PO BID [facility] Last Admin: 06/12/19 10:35 Dose: 1,000 mg 79 year old gentleman with history of CKD stage 4 (baseline Cr 2.5-2.9), Schizoaffective disorder, hypertension, hyperlipidemia, anemia, BPH, CAD who presented from [place] with fever and desaturation and admitted for sepsis due to PNA with worsening renal function. 1. Acute kidney injury in setting of sepsis 2. Chronic kidney disease stage 4 3. Sepsis/PNA 4. Hypernatremia 5. Hyperkalemia 6. Hx of BPH 7. Hx of hypertension 8. Hyperlipidemia 9. Right Humerus fracture 10. Anemia Renal function is stable at this time. 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 Serum Na remains elevated despite prolong treatment with D5W. 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 (prior labs showed elevated Na levels as well) Check serum and urine OSM. Would maintain off IVF and trend Na levels. ? history of lithium use. Trend Na daily, if Na levels continue to rise would restart D5W. Luis Armando Ruiz DO
[2019-06-12] MEDS ORDERED: ACETAMINOPHEN 325 MG TABLET (FP) PO PRN (20:54)
[2019-06-12] MEDS: ATORVASTATIN CA 10 MG TABLET (FP) PO SCH (21:50)
[2019-06-13] MEDS: INSULIN SLIDING SCALE (NOVOLOG) 1 VIAL SQ SCH ×4 (06:46→22:55)
[2019-06-13] MEDS: LEVOTHYROXINE NA 125 MCG TABLET (FP) PO SCH (06:48)
[2019-06-13] MEDS: AMINO ACIDS/PROTEIN HYDROLYS 30 ML LIQUID.PKT PO SCH ×3 (08:44→18:48)
[2019-06-13] MEDS: TAMSULOSIN HCL 0.4 MG CAP PO SCH (08:44)
--- NOTE | 2019-06-13 11:24 | PN ---
Progress Note, Physician History of Present Illness: stable no new issues - Current Medication List Current Medications: Active Medications Acetaminophen (Tylenol -) 650 mg PO Q6H PRN PRN Reason: PAIN LEVEL 1-5 Amino Acids (Prosource No Carb Liquid Pkt) 30 ml PO BID@0800,1730 [facility] Last Admin: 06/13/19 08:44 Dose: 30 ml Atorvastatin Calcium (Lipitor -) 10 mg PO HS [facility] Last Admin: 06/12/19 21:50 Dose: 10 mg Bacitracin (Bacitracin -) 1 applic TP BID [facility] Last Admin: 06/12/19 21:49 Dose: 1 applic Insulin Aspart (Novolog Vial Sliding Scale -) 1 vial SQ ACHS [facility]; Protocol Last Admin: 06/13/19 06:46 Dose: Not Given Levothyroxine Sodium (Synthroid -) 125 mcg PO DAILY@0700 [facility] Last Admin: 06/13/19 06:48 Dose: 125 mcg Tamsulosin HCl (Flomax -) 0.4 mg PO DAILY@0830 [facility] Last Admin: 06/13/19 08:44 Dose: 0.4 mg Valproate Sodium (Depakene -) 1,000 mg PO BID [facility] Last Admin: 06/12/19 21:50 Dose: 1,000 mg - Objective Vital Signs: Vital Signs Temperature 97.4 F L 06/13/19 05:09 Pulse Rate 72 06/13/19 09:00 Respiratory Rate 18 06/13/19 09:00 Blood Pressure 100/66 06/13/19 09:00 O2 Sat by Pulse Oximetry (%) 100 06/12/19 22:00 Constitutional: Yes: No Distress, Calm Cardiovascular: Yes: S1, S2 Respiratory: Yes: Regular, CTA Bilaterally Gastrointestinal: Yes: Normal Bowel Sounds, Soft Musculoskeletal: Yes: WNL Extremities: Yes: WNL Neurological: Yes: Alert Psychiatric: Yes: Alert Labs: CBC, BMP 06/12/19 06:10 06/12/19 06:10 INR, PTT INR 1.19 (0.83-1.09) H 06/02/19 20:44 Assessment/Plan Problem List - Problems (1) Sepsis Code(s): A41.9 - SEPSIS, UNSPECIFIED ORGANISM Qualifiers: Sepsis type: sepsis due to unspecified organism Sepsis acute organ dysfunction status: with acute organ dysfunction Severe sepsis acute organ dysfunction type: acute renal failure Acute renal failure type: unspecified Severe sepsis shock status: without septic shock Qualified Code(s): A41.9 - Sepsis, unspecified organism; R65.20 - Severe sepsis without septic shock; N17.9 - Acute kidney failure, unspecified (2) AMS (altered mental status) Code(s): R41.82 - ALTERED MENTAL STATUS, UNSPECIFIED (3) AFTAB (acute kidney injury) Code(s): N17.9 - ACUTE KIDNEY FAILURE, UNSPECIFIED (4) Hyperglycemia Code(s): R73.9 - HYPERGLYCEMIA, UNSPECIFIED (5) Renal failure (ARF), acute on chronic Code(s): N17.9 - ACUTE KIDNEY FAILURE, UNSPECIFIED; N18.9 - CHRONIC KIDNEY DISEASE, UNSPECIFIED (6) HTN (hypertension) Code(s): I10 - ESSENTIAL (PRIMARY) HYPERTENSION (7) HLD (hyperlipidemia) Code(s): E78.5 - HYPERLIPIDEMIA, UNSPECIFIED (8) Anemia Code(s): D64.9 - ANEMIA, UNSPECIFIED (9) Hypothyroidism Code(s): E03.9 - HYPOTHYROIDISM, UNSPECIFIED (10) Schizo affective schizophrenia Code(s): F25.9 - SCHIZOAFFECTIVE DISORDER, UNSPECIFIED (11) BPH (benign prostatic hyperplasia) Code(s): N40.0 - BENIGN PROSTATIC HYPERPLASIA WITHOUT LOWER URINRY TRACT SYMP (12) Hyperkalemia Code(s): E87.5 - HYPERKALEMIA (13) Hypernatremia Code(s): E87.0 - HYPEROSMOLALITY AND HYPERNATREMIA 14 gm positive bacteremia 15 uti plan continue current mgmt rest as per the team
--- NOTE | 2019-06-13 11:51 | PN ---
Progress Note (short form) - Note Progress Note: RENAL Pt is awake and alert comfortable denies complaints Last Vital Signs Temp Pulse Resp BP Pulse Ox 97.4 F L 72 18 100/66 100 06/13/19 05:09 06/13/19 09:00 06/13/19 09:00 06/13/19 09:00 06/12/19 22:00 lungs clear cvs s1s2 rr abd soft ext no edema has a [place] CBC, BMP 06/12/19 06:10 06/12/19 06:10 Current Medications Generic Name Dose Route Start Last Admin Trade Name Freq PRN Reason Stop Dose Admin Acetaminophen 650 mg 06/12/19 20:54 Tylenol - PO Q6H PRN PAIN LEVEL 1-5 Amino Acids 30 ml 06/13/19 08:00 06/13/19 08:44 Prosource No Carb Liquid Pkt PO 30 ml BID@0800,1730 [facility] Administration Atorvastatin Calcium 10 mg 06/12/19 22:00 06/12/19 21:50 Lipitor - PO 10 mg HS [facility] Administration Bacitracin 1 applic 06/12/19 22:00 06/12/19 21:49 Bacitracin - TP 1 applic BID [facility] Administration Insulin Aspart 1 vial 06/12/19 22:00 06/13/19 06:46 Novolog Vial Sliding Scale - SQ Not Given ACHS [facility] Protocol Levothyroxine Sodium 125 mcg 06/13/19 07:00 06/13/19 06:48 Synthroid - PO 125 mcg DAILY@0700 [facility] Administration Tamsulosin HCl 0.4 mg 06/13/19 08:30 06/13/19 08:44 Flomax - PO 0.4 mg DAILY@0830 [facility] Administration Valproate Sodium 1,000 mg 06/09/19 22:00 06/12/19 21:50 Depakene - PO 1,000 mg BID [facility] Administration 79 year old gentleman with history of CKD stage 4 (baseline Cr 2.5-2.9), Schizoaffective disorder, hypertension, hyperlipidemia, anemia, BPH, CAD who presented from [place] with fever and desaturation and admitted for sepsis due to PNA with worsening renal function. 1. Acute kidney injury in setting of sepsis 2. Chronic kidney disease stage 4 3. Sepsis/PNA 4. Hypernatremia- ?nephrogenic DI 5. Hyperkalemia 6. Hx of BPH 7. Hx of hypertension 8. Hyperlipidemia 9. Right Humerus fracture 10. Anemia encourage po fluids urine osm was ordered MV
--- NOTE | 2019-06-13 11:59 | PN ---
Progress Note (short form) - Note Progress Note: Pt seen/ examined all f/u noted awake/ comfotable off abx denies diarrhea denies pain afebrile Vital Signs Temp 97.4 F L 06/13/19 05:09 Pulse 72 06/13/19 09:00 Resp 18 06/13/19 09:00 BP 100/66 06/13/19 09:00 Pulse Ox 100 06/12/19 22:00 Intake & Output 06/12/19 06/12/19 06/13/19 11:59 23:59 11:59 Intake Total 1024 600 150 Balance 1024 600 150 Intake: IV 924 D5w - 1,000 ml @ 84 mls/ 924 hr IV ASDIR [facility] Rx#: [id number] Oral 100 600 150 Other: Voiding Method Diaper Diaper Incontinent # Unmeasured Voids External Catheter 3 Void 2 1 Bowel Movement Yes No Yes # Bowel Movements 1 1 Body Mass Index (BMI) 31.1 Active Medications Acetaminophen (Tylenol -) 650 mg PO Q6H PRN PRN Reason: PAIN LEVEL 1-5 Amino Acids (Prosource No Carb Liquid Pkt) 30 ml PO BID@0800,1730 [facility] Last Admin: 06/13/19 08:44 Dose: 30 ml Atorvastatin Calcium (Lipitor -) 10 mg PO HS [facility] Last Admin: 06/12/19 21:50 Dose: 10 mg Bacitracin (Bacitracin -) 1 applic TP BID [facility] Last Admin: 06/12/19 21:49 Dose: 1 applic Insulin Aspart (Novolog Vial Sliding Scale -) 1 vial SQ ACHS [facility]; Protocol Last Admin: 06/13/19 06:46 Dose: Not Given Levothyroxine Sodium (Synthroid -) 125 mcg PO DAILY@0700 [facility] Last Admin: 06/13/19 06:48 Dose: 125 mcg Tamsulosin HCl (Flomax -) 0.4 mg PO DAILY@0830 [facility] Last Admin: 06/13/19 08:44 Dose: 0.4 mg Valproate Sodium (Depakene -) 1,000 mg PO BID [facility] Last Admin: 06/12/19 21:50 Dose: 1,000 mg CBC, BMP 06/12/19 06:10 06/12/19 06:10 Physical Exam. awake / comfortable S1 S2 RRR Lungs decreased At bases Abd- soft, obese, NT edema+ Right arm - edema-- A/P Acute on CKD Hyperkalemia Metabolic encephalopathy Rt humerus fracture sepsis -- henley +-- [place] Catheter -- monitor out put -- monitor HCT -- off abx ---repeat cultures -ve -- will continue to follow ---overall better oob - chair PT d/c planning if continue to improve check labs tomorrow as Na is elevated Renal following will follow Problem List - Problems (1) AFTAB (acute kidney injury) Code(s): N17.9 - ACUTE KIDNEY FAILURE, UNSPECIFIED (2) AMS (altered mental status) Code(s): R41.82 - ALTERED MENTAL STATUS, UNSPECIFIED (3) BPH (benign prostatic hyperplasia) Code(s): N40.0 - BENIGN PROSTATIC HYPERPLASIA WITHOUT LOWER URINRY TRACT SYMP (4) HLD (hyperlipidemia) Code(s): E78.5 - HYPERLIPIDEMIA, UNSPECIFIED (5) HTN (hypertension) Code(s): I10 - ESSENTIAL (PRIMARY) HYPERTENSION (6) Bipolar disease, chronic Code(s): F31.9 - BIPOLAR DISORDER, UNSPECIFIED (7) Chronic renal failure, stage 4 (severe) Code(s): N18.4 - CHRONIC KIDNEY DISEASE, STAGE 4 (SEVERE)
[2019-06-13] MEDS: VALPROATE SODIUM 250 MG/5 ML UNIT DOSE CUP PO SCH ×2 (13:09→22:56)
[2019-06-13] MEDS: BACITRACIN 15 GM TUBE TOPICAL OINTMENT TP SCH ×2 (13:10→22:57)
[2019-06-13] MEDS: ATORVASTATIN CA 10 MG TABLET (FP) PO SCH (22:56)
[2019-06-14] MEDS: LEVOTHYROXINE NA 125 MCG TABLET (FP) PO SCH (07:01)
[2019-06-14] MEDS: INSULIN SLIDING SCALE (NOVOLOG) 1 VIAL SQ SCH ×4 (07:04→22:15)
[2019-06-14 07:38] LABS: BASO % 0.8 % (0-2.0); EOS % 2.7 % (0-4.5); HEMATOCRIT 27.1 % (35.4-49); HEMOGLOBIN 8.5 GM/dL (11.7-16.9); MCH 33.1 pg (25.7-33.7); MCHC 31.4 g/dl (32.0-35.9); MEAN CELL VOLUME 105.2 fl (80-96); MONO % 6.9 % (3.8-10.2); NEUT % 62.6 % (42.8-82.8); PLATELET COUNT 373 K/MM3 (134-434); RBC 2.58 M/mm3 (4.00-5.60); WHITE BLOOD COUNT 9.2 K/mm3 (4.0-10.0)
[2019-06-14 08:10] LABS: BILIRUBIN,TOTAL 0.3 mg/dL (0.2-1); BLOOD UREA NITROGEN 41.8 mg/dL (7-18); CALCIUM 8.2 mg/dL (8.5-10.1); CREATININE 2.5 mg/dL (0.55-1.3); POTASSIUM 4.1 mmol/L (3.5-5.1); TOT PROT 6.4 g/dl (6.4-8.2)
[2019-06-14 11:40] LABS: ANISOCYTOSIS 1+; MACROCYTOSIS 2+
[2019-06-14] MEDS ORDERED: LEVOTHYROXINE NA 125 MCG TABLET (FP) PO SCH (11:40)
--- NOTE | 2019-06-14 11:40 | PN ---
Progress Note (short form) - Note Progress Note: patient seen and examined today not eating much Sodium rising No distress Comfortable mood stable Vital Signs Temp 98.3 F 06/14/19 06:00 Pulse 61 06/14/19 06:00 Resp 18 06/14/19 06:00 BP 141/61 06/14/19 06:00 Pulse Ox 97 06/13/19 21:00 Intake & Output 06/13/19 06/13/19 06/14/19 11:59 23:59 11:59 Intake Total 150 0 118 Balance 150 0 118 Intake: IV 0 0 saline lock 0 0 Oral 150 118 Other: Voiding Method Incontinent Incontinent # Unmeasured Voids Void 3 Bowel Movement Yes No No # Bowel Movements 1 2 Active Medications Acetaminophen (Tylenol -) 650 mg PO Q6H PRN PRN Reason: PAIN LEVEL 1-5 Amino Acids (Prosource No Carb Liquid Pkt) 30 ml PO BID@0800,1730 [facility] Last Admin: 06/13/19 18:48 Dose: Not Given Atorvastatin Calcium (Lipitor -) 10 mg PO HS [facility] Last Admin: 06/13/19 22:56 Dose: 10 mg Bacitracin (Bacitracin -) 1 applic TP BID [facility] Last Admin: 06/13/19 22:57 Dose: 1 applic Dextrose/Sodium Chloride (D5-1/2ns -) 1,000 mls @ 100 mls/hr IV ASDIR [facility] Insulin Aspart (Novolog Vial Sliding Scale -) 1 vial SQ ACHS [facility]; Protocol Last Admin: 06/14/19 07:04 Dose: Not Given Levothyroxine Sodium (Synthroid -) 125 mcg PO DAILY@0700 [facility] Last Admin: 06/14/19 07:01 Dose: 125 mcg Tamsulosin HCl (Flomax -) 0.4 mg PO DAILY@0830 [facility] Last Admin: 06/13/19 08:44 Dose: 0.4 mg Valproate Sodium (Depakene -) 1,000 mg PO BID [facility] Last Admin: 06/13/19 22:56 Dose: 1,000 mg CBC, BMP 06/14/19 07:00 06/14/19 07:00 Abnormal Lab Results 06/14/19 06/14/19 07:00 07:00 RBC 2.58 L Hgb 8.5 L Hct 27.1 L MCV 105.2 H MCHC 31.4 L Sodium 155 H Chloride 127 H Anion Gap 7 L BUN 41.8 H Creatinine 2.5 H Random Glucose 107 H Calcium 8.2 L Alkaline Phosphatase 178 H Albumin 2.0 L TSH 9.27 H D Physical Exam. comfortable S1 S2 RRR Lungs decreased at bases Abd- soft, obese, NT edema+ Right arm - edema-- A/P Acute on CKD Hyperkalemia Metabolic encephalopathy Rt humerus fracture sepsis hypernatremia -- henley +-- [place] Catheter -- monitor out put -- monitor HCT -- off abx ---repeat cultures -ve -- start on mild hydration -Increased Synthroid dose also Encourage eating oob - chair PT Renal following will follow discussed with RN also Problem List - Problems (1) AFTAB (acute kidney injury) Code(s): N17.9 - ACUTE KIDNEY FAILURE, UNSPECIFIED (2) AMS (altered mental status) Code(s): R41.82 - ALTERED MENTAL STATUS, UNSPECIFIED (3) BPH (benign prostatic hyperplasia) Code(s): N40.0 - BENIGN PROSTATIC HYPERPLASIA WITHOUT LOWER URINRY TRACT SYMP (4) HLD (hyperlipidemia) Code(s): E78.5 - HYPERLIPIDEMIA, UNSPECIFIED (5) HTN (hypertension) Code(s): I10 - ESSENTIAL (PRIMARY) HYPERTENSION (6) Bipolar disease, chronic Code(s): F31.9 - BIPOLAR DISORDER, UNSPECIFIED (7) Chronic renal failure, stage 4 (severe) Code(s): N18.4 - CHRONIC KIDNEY DISEASE, STAGE 4 (SEVERE)
[2019-06-14] MEDS ORDERED: DEXTROSE 5%-0.45% SALINE 1,000 ML IV SCH (11:45)
[2019-06-14] MEDS: TAMSULOSIN HCL 0.4 MG CAP PO SCH (12:12)
[2019-06-14] MEDS: BACITRACIN 15 GM TUBE TOPICAL OINTMENT TP SCH ×2 (12:17→22:34)
[2019-06-14] MEDS: VALPROATE SODIUM 250 MG/5 ML UNIT DOSE CUP PO SCH ×2 (12:17→22:33)
[2019-06-14] MEDS: AMINO ACIDS/PROTEIN HYDROLYS 30 ML LIQUID.PKT PO SCH ×2 (12:17→17:56)
--- NOTE | 2019-06-14 14:38 | PN ---
Progress Note, Physician History of Present Illness: stable confused - Current Medication List Current Medications: Active Medications Acetaminophen (Tylenol -) 650 mg PO Q6H PRN PRN Reason: PAIN LEVEL 1-5 Amino Acids (Prosource No Carb Liquid Pkt) 30 ml PO BID@0800,1730 [facility] Last Admin: 06/14/19 12:17 Dose: 30 ml Atorvastatin Calcium (Lipitor -) 10 mg PO HS [facility] Last Admin: 06/13/19 22:56 Dose: 10 mg Bacitracin (Bacitracin -) 1 applic TP BID [facility] Last Admin: 06/14/19 12:17 Dose: 1 applic Dextrose/Sodium Chloride (D5-1/2ns -) 1,000 mls @ 100 mls/hr IV ASDIR [facility] Insulin Aspart (Novolog Vial Sliding Scale -) 1 vial SQ ACHS [facility]; Protocol Last Admin: 06/14/19 12:17 Dose: Not Given Levothyroxine Sodium 112 mcg/ (Levothyroxine Sodium 25 mcg) 137 mcg PO DAILY@ 0700 [facility] Tamsulosin HCl (Flomax -) 0.4 mg PO DAILY@0830 [facility] Last Admin: 06/14/19 12:12 Dose: 0.4 mg Valproate Sodium (Depakene -) 1,000 mg PO BID [facility] Last Admin: 06/14/19 12:17 Dose: 1,000 mg - Objective Vital Signs: Vital Signs Temperature 98.3 F 06/14/19 06:00 Pulse Rate 61 06/14/19 06:00 Respiratory Rate 18 06/14/19 06:00 Blood Pressure 141/61 06/14/19 06:00 O2 Sat by Pulse Oximetry (%) 97 06/13/19 21:00 Constitutional: Yes: No Distress, Calm Cardiovascular: Yes: S1, S2 Respiratory: Yes: Regular, CTA Bilaterally Gastrointestinal: Yes: Normal Bowel Sounds, Soft Musculoskeletal: Yes: Other Extremities: Yes: Other Neurological: Yes: Alert, Confusion Psychiatric: Yes: Alert Labs: CBC, BMP 06/14/19 07:00 06/14/19 07:00 INR, PTT INR 1.19 (0.83-1.09) H 06/02/19 20:44 Assessment/Plan Problem List - Problems (1) Sepsis Code(s): A41.9 - SEPSIS, UNSPECIFIED ORGANISM Qualifiers: Sepsis type: sepsis due to unspecified organism Sepsis acute organ dysfunction status: with acute organ dysfunction Severe sepsis acute organ dysfunction type: acute renal failure Acute renal failure type: unspecified Severe sepsis shock status: without septic shock Qualified Code(s): A41.9 - Sepsis, unspecified organism; R65.20 - Severe sepsis without septic shock; N17.9 - Acute kidney failure, unspecified (2) AMS (altered mental status) Code(s): R41.82 - ALTERED MENTAL STATUS, UNSPECIFIED (3) AFTAB (acute kidney injury) Code(s): N17.9 - ACUTE KIDNEY FAILURE, UNSPECIFIED (4) Hyperglycemia Code(s): R73.9 - HYPERGLYCEMIA, UNSPECIFIED (5) Renal failure (ARF), acute on chronic Code(s): N17.9 - ACUTE KIDNEY FAILURE, UNSPECIFIED; N18.9 - CHRONIC KIDNEY DISEASE, UNSPECIFIED (6) HTN (hypertension) Code(s): I10 - ESSENTIAL (PRIMARY) HYPERTENSION (7) HLD (hyperlipidemia) Code(s): E78.5 - HYPERLIPIDEMIA, UNSPECIFIED (8) Anemia Code(s): D64.9 - ANEMIA, UNSPECIFIED (9) Hypothyroidism Code(s): E03.9 - HYPOTHYROIDISM, UNSPECIFIED (10) Schizo affective schizophrenia Code(s): F25.9 - SCHIZOAFFECTIVE DISORDER, UNSPECIFIED (11) BPH (benign prostatic hyperplasia) Code(s): N40.0 - BENIGN PROSTATIC HYPERPLASIA WITHOUT LOWER URINRY TRACT SYMP (12) Hyperkalemia Code(s): E87.5 - HYPERKALEMIA (13) Hypernatremia Code(s): E87.0 - HYPEROSMOLALITY AND HYPERNATREMIA 14 gm positive bacteremia 15 uti plan continue current mgmt rest as per the team
--- NOTE | 2019-06-14 14:43 | PN ---
Progress Note (short form) - Note Progress Note: RENAL Pt is awake and alert comfortable denies complaints Last Vital Signs Temp Pulse Resp BP Pulse Ox 98.3 F 61 18 141/61 97 06/14/19 06:00 06/14/19 06:00 06/14/19 06:00 06/14/19 06:00 06/13/19 21:00 lungs clear cvs s1s2 rr abd soft ext no edema has a [place] CBC, BMP 06/14/19 07:00 06/14/19 07:00 Current Medications Generic Name Dose Route Start Last Admin Trade Name Freq PRN Reason Stop Dose Admin Acetaminophen 650 mg 06/12/19 20:54 Tylenol - PO Q6H PRN PAIN LEVEL 1-5 Amino Acids 30 ml 06/13/19 08:00 06/14/19 12:17 Prosource No Carb Liquid Pkt PO 30 ml BID@0800,1730 [facility] Administration Atorvastatin Calcium 10 mg 06/12/19 22:00 06/13/19 22:56 Lipitor - PO 10 mg HS [facility] Administration Bacitracin 1 applic 06/12/19 22:00 06/14/19 12:17 Bacitracin - TP 1 applic BID [facility] Administration Dextrose/Sodium Chloride 1,000 mls @ 100 mls/hr 06/14/19 11:45 D5-1/2ns - IV ASDIR [facility] Insulin Aspart 1 vial 06/12/19 22:00 06/14/19 12:17 Novolog Vial Sliding Scale - SQ Not Given ACHS [facility] Protocol Levothyroxine Sodium 112 mcg/ 137 mcg 06/15/19 07:00 Levothyroxine Sodium 25 mcg PO DAILY@0700 [facility] Tamsulosin HCl 0.4 mg 06/13/19 08:30 06/14/19 12:12 Flomax - PO 0.4 mg DAILY@0830 [facility] Administration Valproate Sodium 1,000 mg 06/09/19 22:00 06/14/19 12:17 Depakene - PO 1,000 mg BID [facility] Administration 79 year old gentleman with history of CKD stage 4 (baseline Cr 2.5-2.9), Schizoaffective disorder, hypertension, hyperlipidemia, anemia, BPH, CAD who presented [place] with fever and desaturation and admitted for sepsis due to PNA with worsening renal function. 1. Acute kidney injury in setting of sepsis- improved 2. Chronic kidney disease stage 4 3. Sepsis/PNA 4. Hypernatremia- urine osm is high... no DI 5. Hyperkalemia 6. Hx of BPH 7. Hx of hypertension 8. Hyperlipidemia 9. Right Humerus fracture 10. Anemia 11 urine urea is in higher limit of normal but cant calculate protein excretion from a random sample encourage po fluids start d5w keep monitoring MV
[2019-06-14] MEDS ORDERED: DEXTROSE 5%-WATER - 1,000 ML IV SCH (15:00)
[2019-06-14] MEDS: DEXTROSE 5%-WATER - 1,000 ML IV SCH ×2 (15:44→21:22)
[2019-06-14] MEDS ORDERED: INSULIN (NOVOLOG) ASPART 100 UNITS/ML 10ML VIAL ONE (21:34)
[2019-06-14] MEDS: ATORVASTATIN CA 10 MG TABLET (FP) PO SCH (22:34)
[2019-06-15] MEDS ORDERED: LEVOTHYROXINE NA 25 MCG TABLET (FP) ONE (06:56)
[2019-06-15] MEDS ORDERED: LEVOTHYROXINE NA 112 MCG TABLET (FP) ONE (06:56)
[2019-06-15] MEDS: LEVOTHYROXINE 112 MCG, LEVOTHYROXINE 25 MCG PO SCH (07:12)
[2019-06-15] MEDS: INSULIN SLIDING SCALE (NOVOLOG) 1 VIAL SQ SCH ×4 (07:13→21:11)
[2019-06-15] MEDS ORDERED: PT OWN MED DRAWER 7, Y5N ONE (08:37)
[2019-06-15] MEDS: BACITRACIN 15 GM TUBE TOPICAL OINTMENT TP SCH ×2 (08:59→21:11)
[2019-06-15] MEDS: TAMSULOSIN HCL 0.4 MG CAP PO SCH (08:59)
[2019-06-15] MEDS: VALPROATE SODIUM 250 MG/5 ML UNIT DOSE CUP PO SCH ×2 (08:59→21:11)
[2019-06-15] MEDS: AMINO ACIDS/PROTEIN HYDROLYS 30 ML LIQUID.PKT PO SCH ×2 (08:59→18:18)
--- NOTE | 2019-06-15 10:59 | EKG ---
Test Reason : Blood Pressure : / mmHG Vent. Rate : 067 BPM Atrial Rate : 067 BPM P-R Int : 136 ms QRS Dur : 130 ms QT Int : 440 ms P-R-T Axes : 079 -28 025 degrees QTc Int : 464 ms SINUS RHYTHM WITH PREMATURE ATRIAL COMPLEXES RIGHT BUNDLE BRANCH BLOCK ABNORMAL ECG WHEN COMPARED WITH ECG OF 02-JUN-2019 22:47, NO SIGNIFICANT CHANGE WAS FOUND Confirmed by SARABJIT NORMAN MD ([id number]) on 06/15/2019 10:59:41 AM Referred By: Confirmed By:SARABJIT NORMAN MD
[2019-06-15 11:04] LABS: BASO % 0.5 % (0-2.0); EOS % 2.7 % (0-4.5); HEMATOCRIT 28.2 % (35.4-49); HEMOGLOBIN 8.8 GM/dL (11.7-16.9); LYMPH % 29.4 % (8-40); MCH 33.3 pg (25.7-33.7); MCHC 31.1 g/dl (32.0-35.9); MEAN CELL VOLUME 107.1 fl (80-96); MEAN PLT VOLUME 8.8 fl (7.5-11.1); MONO % 5.9 % (3.8-10.2); NEUT % 61.5 % (42.8-82.8); PLATELET COUNT 383 K/MM3 (134-434); RBC 2.64 M/mm3 (4.00-5.60); RDW 15.3 % (11.9-15.9); WHITE BLOOD COUNT 8.1 K/mm3 (4.0-10.0)
[2019-06-15 11:19] LABS: ALBUMIN 2.1 g/dl (3.4-5.0); BILIRUBIN,TOTAL 0.4 mg/dL (0.2-1); BLOOD UREA NITROGEN 39.7 mg/dL (7-18); CALCIUM 8.4 mg/dL (8.5-10.1); CREATININE 2.7 mg/dL (0.55-1.3); POTASSIUM 4.3 mmol/L (3.5-5.1); TOT PROT 6.9 g/dl (6.4-8.2)
--- NOTE | 2019-06-15 11:19 | PN ---
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 Articulation is reduced in rate. Continue diet as ordered. Encourage supplements throughout day.
[2019-06-15] MEDS: DEXTROSE 5%-WATER - 1,000 ML IV SCH ×3 (11:29→23:49)
--- NOTE | 2019-06-15 11:29 | PN ---
Progress Note (short form) - Note Progress Note: Pt seen/ examined awake/ comfortable looks better On fluids Vital Signs Temp 98.4 F 06/15/19 10:00 Pulse 64 06/15/19 10:00 Resp 18 06/15/19 10:00 BP 106/68 06/15/19 10:00 Pulse Ox 96 06/15/19 09:00 Intake & Output 06/14/19 06/14/19 06/15/19 11:59 23:59 11:59 Intake Total 118 632 814 Balance 118 632 814 Intake: IV 0 632 664 D5w - 1,000 ml @ 83 mls/ 632 664 hr IV ASDIR [facility] Rx#: [id number] saline lock 0 Oral 118 50 Oral Supplement 100 Other: Voiding Method Incontinent Incontinent Incontinent # Unmeasured Voids Void 2 1 1 Bowel Movement Yes Yes No # Bowel Movements 2 Active Medications Acetaminophen (Tylenol -) 650 mg PO Q6H PRN PRN Reason: PAIN LEVEL 1-5 Amino Acids (Prosource No Carb Liquid Pkt) 30 ml PO BID@0800,1730 [facility] Last Admin: 06/15/19 08:59 Dose: 30 ml Atorvastatin Calcium (Lipitor -) 10 mg PO HS [facility] Last Admin: 06/14/19 22:34 Dose: 10 mg Bacitracin (Bacitracin -) 1 applic TP BID [facility] Last Admin: 06/15/19 08:59 Dose: 1 applic Dextrose (D5w -) 1,000 mls @ 83 mls/hr IV ASDIR [facility] Last Admin: 06/14/19 21:22 Dose: 83 mls/hr Insulin Aspart (Novolog Vial Sliding Scale -) 1 vial SQ ACHS [facility]; Protocol Last Admin: 06/15/19 07:13 Dose: Not Given Levothyroxine Sodium 112 mcg/ (Levothyroxine Sodium 25 mcg) 137 mcg PO DAILY@ 0700 [facility] Last Admin: 06/15/19 07:12 Dose: 137 mcg Tamsulosin HCl (Flomax -) 0.4 mg PO DAILY@0830 [facility] Last Admin: 06/15/19 08:59 Dose: 0.4 mg Valproate Sodium (Depakene -) 1,000 mg PO BID [facility] Last Admin: 06/15/19 08:59 Dose: 1,000 mg CBC, BMP 06/15/19 10:10 06/15/19 10:10 Physical Exam. comfortable S1 S2 RRR Lungs decreased at bases Abd- soft, obese, NT edema+ Right arm - edema-- A/P Acute on CKD Hyperkalemia Metabolic encephalopathy Rt humerus fracture sepsis hypernatremia -- henley +-- [place] Catheter -- monitor out put -- monitor HCT -- off abx ---repeat cultures -ve -- started on mild hydration -Increased Synthroid dose also Encourage eating oob - chair PT Renal following will follow discussed with RN also I ALSO D/W PTS SISTER TODAY. Problem List - Problems (1) AFTAB (acute kidney injury) Code(s): N17.9 - ACUTE KIDNEY FAILURE, UNSPECIFIED (2) AMS (altered mental status) Code(s): R41.82 - ALTERED MENTAL STATUS, UNSPECIFIED (3) BPH (benign prostatic hyperplasia) Code(s): N40.0 - BENIGN PROSTATIC HYPERPLASIA WITHOUT LOWER URINRY TRACT SYMP (4) HLD (hyperlipidemia) Code(s): E78.5 - HYPERLIPIDEMIA, UNSPECIFIED (5) HTN (hypertension) Code(s): I10 - ESSENTIAL (PRIMARY) HYPERTENSION (6) Bipolar disease, chronic Code(s): F31.9 - BIPOLAR DISORDER, UNSPECIFIED (7) Chronic renal failure, stage 4 (severe) Code(s): N18.4 - CHRONIC KIDNEY DISEASE, STAGE 4 (SEVERE) Problem List - Problems (1) AFTAB (acute kidney injury) Code(s): N17.9 - ACUTE KIDNEY FAILURE, UNSPECIFIED (2) AMS (altered mental status) Code(s): R41.82 - ALTERED MENTAL STATUS, UNSPECIFIED (3) BPH (benign prostatic hyperplasia) Code(s): N40.0 - BENIGN PROSTATIC HYPERPLASIA WITHOUT LOWER URINRY TRACT SYMP (4) HLD (hyperlipidemia) Code(s): E78.5 - HYPERLIPIDEMIA, UNSPECIFIED (5) HTN (hypertension) Code(s): I10 - ESSENTIAL (PRIMARY) HYPERTENSION (6) Bipolar disease, chronic Code(s): F31.9 - BIPOLAR DISORDER, UNSPECIFIED (7) Chronic renal failure, stage 4 (severe) Code(s): N18.4 - CHRONIC KIDNEY DISEASE, STAGE 4 (SEVERE)
--- NOTE | 2019-06-15 12:10 | PN ---
Progress Note, Physician History of Present Illness: stable no new issues - Current Medication List Current Medications: Active Medications Acetaminophen (Tylenol -) 650 mg PO Q6H PRN PRN Reason: PAIN LEVEL 1-5 Amino Acids (Prosource No Carb Liquid Pkt) 30 ml PO BID@0800,1730 [facility] Last Admin: 06/15/19 08:59 Dose: 30 ml Atorvastatin Calcium (Lipitor -) 10 mg PO HS [facility] Last Admin: 06/14/19 22:34 Dose: 10 mg Bacitracin (Bacitracin -) 1 applic TP BID [facility] Last Admin: 06/15/19 08:59 Dose: 1 applic Dextrose (D5w -) 1,000 mls @ 83 mls/hr IV ASDIR [facility] Last Admin: 06/15/19 11:29 Dose: 83 mls/hr Insulin Aspart (Novolog Vial Sliding Scale -) 1 vial SQ [facility]; Protocol Last Admin: 06/15/19 11:37 Dose: Not Given Levothyroxine Sodium 112 mcg/ (Levothyroxine Sodium 25 mcg) 137 mcg PO DAILY@ 0700 [facility] Last Admin: 06/15/19 07:12 Dose: 137 mcg Tamsulosin HCl (Flomax -) 0.4 mg PO DAILY@0830 [facility] Last Admin: 06/15/19 08:59 Dose: 0.4 mg Valproate Sodium (Depakene -) 1,000 mg PO BID [facility] Last Admin: 06/15/19 08:59 Dose: 1,000 mg - Objective Vital Signs: Vital Signs Temperature 98.4 F 06/15/19 10:00 Pulse Rate 64 06/15/19 10:00 Respiratory Rate 18 06/15/19 10:00 Blood Pressure 106/68 06/15/19 10:00 O2 Sat by Pulse Oximetry (%) 96 06/15/19 09:00 Constitutional: Yes: No Distress, Calm Cardiovascular: Yes: S1, S2 Respiratory: Yes: Regular, CTA Bilaterally Gastrointestinal: Yes: Normal Bowel Sounds, Soft Genitourinary: Yes: Other ([place]) Musculoskeletal: Yes: WNL Extremities: Yes: WNL Neurological: Yes: Alert Labs: CBC, BMP 06/15/19 10:10 06/15/19 10:10 INR, PTT INR 1.19 (0.83-1.09) H 06/02/19 20:44 Assessment/Plan Problem List - Problems (1) Sepsis Code(s): A41.9 - SEPSIS, UNSPECIFIED ORGANISM Qualifiers: Sepsis type: sepsis due to unspecified organism Sepsis acute organ dysfunction status: with acute organ dysfunction Severe sepsis acute organ dysfunction type: acute renal failure Acute renal failure type: unspecified Severe sepsis shock status: without septic shock Qualified Code(s): A41.9 - Sepsis, unspecified organism; R65.20 - Severe sepsis without septic shock; N17.9 - Acute kidney failure, unspecified (2) AMS (altered mental status) Code(s): R41.82 - ALTERED MENTAL STATUS, UNSPECIFIED (3) AFTAB (acute kidney injury) Code(s): N17.9 - ACUTE KIDNEY FAILURE, UNSPECIFIED (4) Hyperglycemia Code(s): R73.9 - HYPERGLYCEMIA, UNSPECIFIED (5) Renal failure (ARF), acute on chronic Code(s): N17.9 - ACUTE KIDNEY FAILURE, UNSPECIFIED; N18.9 - CHRONIC KIDNEY DISEASE, UNSPECIFIED (6) HTN (hypertension) Code(s): I10 - ESSENTIAL (PRIMARY) HYPERTENSION (7) HLD (hyperlipidemia) Code(s): E78.5 - HYPERLIPIDEMIA, UNSPECIFIED (8) Anemia Code(s): D64.9 - ANEMIA, UNSPECIFIED (9) Hypothyroidism Code(s): E03.9 - HYPOTHYROIDISM, UNSPECIFIED (10) Schizo affective schizophrenia Code(s): F25.9 - SCHIZOAFFECTIVE DISORDER, UNSPECIFIED (11) BPH (benign prostatic hyperplasia) Code(s): N40.0 - BENIGN PROSTATIC HYPERPLASIA WITHOUT LOWER URINRY TRACT SYMP (12) Hyperkalemia Code(s): E87.5 - HYPERKALEMIA (13) Hypernatremia Code(s): E87.0 - HYPEROSMOLALITY AND HYPERNATREMIA 14 gm positive bacteremia 15 uti plan continue current mgmt rest as per the team nutrition hydration
--- NOTE | 2019-06-15 14:58 | PN ---
Progress Note (short form) - Note Progress Note: Renal follow up for AFTAB/Hypernatremia Seen and examined at the bedside awake and alert reports feeling thirsty denies any shortness of breath or pain making urine oral intake is poor as per nurse Vital Signs Temperature 98.4 F 06/15/19 10:00 Pulse Rate 64 06/15/19 10:00 Respiratory Rate 18 06/15/19 10:00 Blood Pressure 106/68 06/15/19 10:00 O2 Sat by Pulse Oximetry (%) 96 06/15/19 09:00 Intake & Output 06/12/19 06/13/19 06/14/19 06/15/19 23:59 23:59 23:59 23:59 Intake Total 1624 150 750 814 Balance 1624 150 750 814 No distress, confused no LE edema CBC, BMP 06/15/19 10:10 06/15/19 10:10 Allergies No Known Allergies Allergy (Verified 06/02/19 23:25) Ambulatory Orders Aspirin [ASA -] 1 tab PO DAILY 08/19/18 Divalproex [Depakote -] 1,000 mg PO BID 08/19/18 Gabapentin 100 mg PO BID 08/19/18 Levothyroxine [Synthroid -] 125 mcg PO DAILY 08/19/18 Melatonin 5 mg PO HS 08/19/18 Olanzapine 10 mg PO DAILY 08/19/18 Sennosides [Senna] 8.6 mg PO HS 08/19/18 Tamsulosin HCl 0.4 cap PO HS 08/19/18 Ferrous Sulfate 325 mg PO DAILY 09/30/18 Atorvastatin Ca [Lipitor] 10 mg PO HS 05/26/19 Loxapine Succinate [Loxapine] 10 mg PO BID 05/26/19 Acetaminophen 325 mg PO PRN PRN 06/02/19 Acetaminophen [Tylenol -] 500 mg PO Q8H PRN 06/02/19 Ketoconazole 2% Shampoo [Nizoral 2% Shampoo -] 1 applic TP WEEKLY 06/02/19 Oseltamivir Phosphate [Tamiflu] 30 mg PO Q2D 06/02/19 Intake & Output 06/13/19 06/14/19 06/15/19 23:59 23:59 23:59 Intake Total 150 750 814 Balance 150 750 814 Medications Acetaminophen (Tylenol -) 650 mg PO Q6H PRN PRN Reason: PAIN LEVEL 1-5 Amino Acids (Prosource No Carb Liquid Pkt) 30 ml PO BID@0800,1730 [facility] Last Admin: 06/15/19 08:59 Dose: 30 ml Atorvastatin Calcium (Lipitor -) 10 mg PO HS [facility] Last Admin: 06/14/19 22:34 Dose: 10 mg Bacitracin (Bacitracin -) 1 applic TP BID [facility] Last Admin: 06/15/19 08:59 Dose: 1 applic Desmopressin Acetate (Ddavp -) 0.05 mg PO BID [facility] Dextrose (D5w -) 1,000 mls @ 83 mls/hr IV ASDIR [facility] Last Admin: 06/15/19 11:29 Dose: 83 mls/hr Insulin Aspart (Novolog Vial Sliding Scale -) 1 vial SQ ACHS [facility]; Protocol Last Admin: 06/15/19 11:37 Dose: Not Given Levothyroxine Sodium 112 mcg/ (Levothyroxine Sodium 25 mcg) 137 mcg PO DAILY@ 0700 [facility] Last Admin: 06/15/19 07:12 Dose: 137 mcg Tamsulosin HCl (Flomax -) 0.4 mg PO DAILY@0830 [facility] Last Admin: 06/15/19 08:59 Dose: 0.4 mg Valproate Sodium (Depakene -) 1,000 mg PO BID [facility] Last Admin: 06/15/19 08:59 Dose: 1,000 mg Orders 06/15/19 07:00 Levothyroxine [Synthroid -] 137 mcg PO DAILY@0700 06/15/19 22:00 Desmopressin Acetate [Ddavp -] 0.05 mg PO BID Problems AFTAB (acute kidney injury) (Acute) AMS (altered mental status) (Acute) Anemia (Acute) BPH (benign prostatic hyperplasia) (Acute) HLD (hyperlipidemia) (Acute) HTN (hypertension) (Acute) Hyperglycemia (Acute) Hyperkalemia (Acute) Hypernatremia (Acute) Hypothyroidism (Acute) Metabolic encephalopathy (Acute) Renal failure (ARF), acute on chronic (Acute) Schizo affective schizophrenia (Acute) Sepsis (Acute) Vital Signs 06/14/19 06/14/19 06/14/19 18:00 21:00 22:00 Temperature 97.1 F L 98.3 F Pulse Rate 68 104 H Respiratory 18 18 Rate Blood Pressure 143/59 L 110/65 O2 Sat by Pulse 97 Oximetry (%) 06/15/19 06/15/19 06/15/19 06:12 09:00 10:00 Temperature 97.4 F L 98.4 F Pulse Rate 62 64 Respiratory 18 18 18 Rate Blood Pressure 105/68 106/68 O2 Sat by Pulse 96 Oximetry (%) CBC, BMP 06/15/19 10:10 06/15/19 10:10 79 year old gentleman with history of CKD stage 4 (baseline Cr 2.5-2.9), Schizoaffective disorder, hypertension, hyperlipidemia, anemia, BPH, CAD who presented from [place] with fever and desaturation and admitted for sepsis due to PNA with worsening renal function. 1. Acute kidney injury in setting of sepsis 2. Chronic kidney disease stage 4 3. Sepsis/PNA 4. Hypernatremia 5. Hyperkalemia 6. Hx of BPH 7. Hx of hypertension 8. Hyperlipidemia 9. Right Humerus fracture 10. Anemia Renal function is stable at this time. 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 suspect that persistent hypernatremia in part due to DI (central vs. nephrogenic ). Given CKD pt also may have impaired concentrating ability of the kidney. Will continue D5W for now start PO DDAVP 0.05mg BID Trend Na daily Luis Armando Ruiz DO
[2019-06-15] MEDS: ATORVASTATIN CA 10 MG TABLET (FP) PO SCH (21:09)
[2019-06-15] MEDS: DESMOPRESSIN ACETATE 0.1 MG TABLET PO SCH (21:10)
[2019-06-16] MEDS: INSULIN SLIDING SCALE (NOVOLOG) 1 VIAL SQ SCH ×4 (06:06→22:18)
[2019-06-16] MEDS ORDERED: LEVOTHYROXINE NA 112 MCG TABLET (FP) ONE (06:07)
[2019-06-16] MEDS ORDERED: LEVOTHYROXINE NA 25 MCG TABLET (FP) ONE (06:07)
[2019-06-16] MEDS: LEVOTHYROXINE 112 MCG, LEVOTHYROXINE 25 MCG PO SCH (06:14)
[2019-06-16] MEDS ORDERED: PT OWN MED DRAWER 7, Y5N ONE ×2 (08:51→09:47)
[2019-06-16] MEDS: AMINO ACIDS/PROTEIN HYDROLYS 30 ML LIQUID.PKT PO SCH ×2 (08:55→18:01)
[2019-06-16] MEDS: TAMSULOSIN HCL 0.4 MG CAP PO SCH (08:55)
[2019-06-16] MEDS: VALPROATE SODIUM 250 MG/5 ML UNIT DOSE CUP PO SCH ×2 (08:58→21:51)
[2019-06-16] MEDS: DESMOPRESSIN ACETATE 0.1 MG TABLET PO SCH ×2 (08:59→21:50)
[2019-06-16] MEDS: BACITRACIN 15 GM TUBE TOPICAL OINTMENT TP SCH ×2 (09:01→21:51)
[2019-06-16 10:32] LABS: BLOOD UREA NITROGEN 39.6 mg/dL (7-18); CALCIUM 8.6 mg/dL (8.5-10.1); CREATININE 2.5 mg/dL (0.55-1.3); MAGNESIUM 3.1 mg/dL (1.8-2.4); PHOSPHOROUS 3.8 mg/dL (2.5-4.9); POTASSIUM 4.1 mmol/L (3.5-5.1)
--- NOTE | 2019-06-16 11:31 | PN ---
Progress Note (short form) - Note Progress Note: pt examined awake confused baseline mentation Vital Signs - 24 hr 06/15/19 06/15/19 06/15/19 14:00 21:00 22:00 Temperature 97.4 F L 97.6 F Pulse Rate 72 60 Respiratory 18 18 Rate Blood Pressure 118/55 L 102/55 L O2 Sat by Pulse 96 Oximetry (%) 06/15/19 06/16/19 23:28 06:00 Temperature 98.8 F 97.6 F Pulse Rate 80 69 Respiratory 20 20 Rate Blood Pressure 126/68 104/57 L O2 Sat by Pulse Oximetry (%) Current Medications Generic Name Dose Route Start Last Admin Trade Name Freq PRN Reason Stop Dose Admin Acetaminophen 650 mg 06/12/19 20:54 Tylenol - PO Q6H PRN PAIN LEVEL 1-5 Amino Acids 30 ml 06/13/19 08:00 06/16/19 08:55 Prosource No Carb Liquid Pkt PO 30 ml BID@0800,1730 [facility] Administration Atorvastatin Calcium 10 mg 06/12/19 22:00 06/15/19 21:09 Lipitor - PO 10 mg HS [facility] Administration Bacitracin 1 applic 06/12/19 22:00 06/16/19 09:01 Bacitracin - TP 1 applic BID [facility] Administration Desmopressin Acetate 0.05 mg 06/15/19 22:00 06/16/19 08:59 Ddavp - PO 0.05 mg BID [facility] Administration Dextrose 1,000 mls @ 83 mls/hr 06/14/19 15:00 06/15/19 23:49 D5w - IV 83 mls/hr ASDIR [facility] Administration Insulin Aspart 1 vial 06/12/19 22:00 06/16/19 06:06 Novolog Vial Sliding Scale - SQ Not Given ACHS [facility] Protocol Levothyroxine Sodium 112 mcg/ 137 mcg 06/15/19 07:00 06/16/19 06:14 Levothyroxine Sodium 25 mcg PO 137 mcg DAILY@0700 [facility] Administration Tamsulosin HCl 0.4 mg 06/13/19 08:30 06/16/19 08:55 Flomax - PO 0.4 mg DAILY@0830 [facility] Administration Valproate Sodium 1,000 mg 06/09/19 22:00 06/16/19 08:58 Depakene - PO 1,000 mg BID [facility] Administration Laboratory Results - last 24 hr 06/15/19 06/15/19 06/16/19 17:07 21:07 05:56 Sodium Potassium Chloride Carbon Dioxide Anion Gap BUN Creatinine Est GFR (CKD-EPI)AfAm Est GFR (CKD-EPI)NonAf POC Glucometer 97 83 102 Random Glucose Calcium Phosphorus Magnesium 06/16/19 06/16/19 06:53 09:45 Sodium Cancelled 151 H Potassium Cancelled 4.1 Chloride Cancelled 121 H Carbon Dioxide Cancelled 25 Anion Gap Cancelled 6 L BUN Cancelled 39.6 H Creatinine Cancelled 2.5 H Est GFR (CKD-EPI)AfAm Cancelled 27.67 Est GFR (CKD-EPI)NonAf Cancelled 23.87 POC Glucometer Random Glucose Cancelled 111 H Calcium Cancelled 8.6 Phosphorus Cancelled 3.8 Magnesium Cancelled 3.1 H S1 S2 RRR Lungs decreased Abd- soft, obese, NT edema+ Right arm - edema-- arm in sling A/P Acute on CKD Diabetes Insipidus Hyperkalemia Metabolic encephalopathy Rt humerus fracture sepsis -- henley + -- monitor out put -- monitor HCT -- iv fluids -- DDAVP per renal -- possible DI -- completed iv antibiotics -- tolerating po -- encourage po liquids -- pt baseline renal function around 2.5 Problem List - Problems (1) Metabolic encephalopathy Code(s): G93.41 - METABOLIC ENCEPHALOPATHY (2) AFTAB (acute kidney injury) Code(s): N17.9 - ACUTE KIDNEY FAILURE, UNSPECIFIED (3) AMS (altered mental status) Code(s): R41.82 - ALTERED MENTAL STATUS, UNSPECIFIED (4) Anemia Code(s): D64.9 - ANEMIA, UNSPECIFIED (5) Bipolar disease, chronic Code(s): F31.9 - BIPOLAR DISORDER, UNSPECIFIED (6) Chronic renal failure, stage 4 (severe) Code(s): N18.4 - CHRONIC KIDNEY DISEASE, STAGE 4 (SEVERE) (7) Displaced fracture of right humerus Code(s): S42.301A - UNSP FRACTURE OF SHAFT OF HUMERUS, RIGHT ARM, INIT
--- NOTE | 2019-06-16 12:16 | PN ---
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 Articulation is reduced in rate. Accepted 50% today from nurse with encouragement. Continue diet as ordered. Encourage supplements throughout day.
--- NOTE | 2019-06-16 13:51 | PN ---
Progress Note, Physician History of Present Illness: confused no new issues - Current Medication List Current Medications: Active Medications Acetaminophen (Tylenol -) 650 mg PO Q6H PRN PRN Reason: PAIN LEVEL 1-5 Amino Acids (Prosource No Carb Liquid Pkt) 30 ml PO BID@0800,1730 [facility] Last Admin: 06/16/19 08:55 Dose: 30 ml Atorvastatin Calcium (Lipitor -) 10 mg PO HS [facility] Last Admin: 06/15/19 21:09 Dose: 10 mg Bacitracin (Bacitracin -) 1 applic TP BID [facility] Last Admin: 06/16/19 09:01 Dose: 1 applic Desmopressin Acetate (Ddavp -) 0.05 mg PO BID [facility] Last Admin: 06/16/19 08:59 Dose: 0.05 mg Dextrose (D5w -) 1,000 mls @ 83 mls/hr IV ASDIR [facility] Last Admin: 06/15/19 23:49 Dose: 83 mls/hr Insulin Aspart (Novolog Vial Sliding Scale -) [address] [facility]; Protocol Last Admin: 06/16/19 12:09 Dose: Not Given Levothyroxine Sodium 112 mcg/ (Levothyroxine Sodium 25 mcg) 137 mcg PO DAILY@ 0700 [facility] Last Admin: 06/16/19 06:14 Dose: 137 mcg Tamsulosin HCl (Flomax -) 0.4 mg PO DAILY@0830 [facility] Last Admin: 06/16/19 08:55 Dose: 0.4 mg Valproate Sodium (Depakene -) 1,000 mg PO BID [facility] Last Admin: 06/16/19 08:58 Dose: 1,000 mg - Objective Vital Signs: Vital Signs Temperature 97.6 F 06/16/19 10:00 Pulse Rate 71 06/16/19 10:00 Respiratory Rate 20 06/16/19 10:00 Blood Pressure 117/70 06/16/19 10:00 O2 Sat by Pulse Oximetry (%) 96 06/16/19 09:00 Constitutional: Yes: No Distress, Calm Cardiovascular: Yes: S1, S2 Respiratory: Yes: Other Gastrointestinal: Yes: Normal Bowel Sounds, Soft Musculoskeletal: Yes: WNL Extremities: Yes: Other Neurological: Yes: Alert, Confusion Psychiatric: Yes: Other Labs: CBC, BMP 06/15/19 10:10 06/16/19 09:45 INR, PTT INR 1.19 (0.83-1.09) H 06/02/19 20:44 Assessment/Plan Problem List - Problems (1) Sepsis Code(s): A41.9 - SEPSIS, UNSPECIFIED ORGANISM Qualifiers: Sepsis type: sepsis due to unspecified organism Sepsis acute organ dysfunction status: with acute organ dysfunction Severe sepsis acute organ dysfunction type: acute renal failure Acute renal failure type: unspecified Severe sepsis shock status: without septic shock Qualified Code(s): A41.9 - Sepsis, unspecified organism; R65.20 - Severe sepsis without septic shock; N17.9 - Acute kidney failure, unspecified (2) AMS (altered mental status) Code(s): R41.82 - ALTERED MENTAL STATUS, UNSPECIFIED (3) AFTAB (acute kidney injury) Code(s): N17.9 - ACUTE KIDNEY FAILURE, UNSPECIFIED (4) Hyperglycemia Code(s): R73.9 - HYPERGLYCEMIA, UNSPECIFIED (5) Renal failure (ARF), acute on chronic Code(s): N17.9 - ACUTE KIDNEY FAILURE, UNSPECIFIED; N18.9 - CHRONIC KIDNEY DISEASE, UNSPECIFIED (6) HTN (hypertension) Code(s): I10 - ESSENTIAL (PRIMARY) HYPERTENSION (7) HLD (hyperlipidemia) Code(s): E78.5 - HYPERLIPIDEMIA, UNSPECIFIED (8) Anemia Code(s): D64.9 - ANEMIA, UNSPECIFIED (9) Hypothyroidism Code(s): E03.9 - HYPOTHYROIDISM, UNSPECIFIED (10) Schizo affective schizophrenia Code(s): F25.9 - SCHIZOAFFECTIVE DISORDER, UNSPECIFIED (11) BPH (benign prostatic hyperplasia) Code(s): N40.0 - BENIGN PROSTATIC HYPERPLASIA WITHOUT LOWER URINRY TRACT SYMP (12) Hyperkalemia Code(s): E87.5 - HYPERKALEMIA (13) Hypernatremia Code(s): E87.0 - HYPEROSMOLALITY AND HYPERNATREMIA 14 gm positive bacteremia 15 uti plan continue current mgmt rest as per the team nutrition hydration
--- NOTE | 2019-06-16 15:30 | PN ---
Progress Note (short form) - Note Progress Note: Renal follow up for AFTAB/Hypernatremia Seen and examined at the bedside awake but confused no change in clinical status on IVF Vital Signs Temperature 97.6 F 06/16/19 10:00 Pulse Rate 71 06/16/19 10:00 Respiratory Rate 20 06/16/19 10:00 Blood Pressure 117/70 06/16/19 10:00 O2 Sat by Pulse Oximetry (%) 96 06/16/19 09:00 Intake & Output 06/13/19 06/14/19 06/15/19 06/16/19 23:59 23:59 23:59 23:59 Intake Total 448 543 9936 664 Balance 456 481 1299 664 No distress, confused no LE edema CBC, BMP 06/15/19 10:10 06/16/19 09:45 Current Medications Acetaminophen (Tylenol -) 650 mg PO Q6H PRN PRN Reason: PAIN LEVEL 1-5 Amino Acids (Prosource No Carb Liquid Pkt) 30 ml PO BID@0800,1730 [facility] Last Admin: 06/16/19 08:55 Dose: 30 ml Atorvastatin Calcium (Lipitor -) 10 mg PO HS [facility] Last Admin: 06/15/19 21:09 Dose: 10 mg Bacitracin (Bacitracin -) 1 applic TP BID [facility] Last Admin: 06/16/19 09:01 Dose: 1 applic Desmopressin Acetate (Ddavp -) 0.05 mg PO BID [facility] Last Admin: 06/16/19 08:59 Dose: 0.05 mg Dextrose (D5w -) 1,000 mls @ 83 mls/hr IV ASDIR [facility] Last Admin: 06/15/19 23:49 Dose: 83 mls/hr Insulin Aspart (Novolog Vial Sliding Scale -) 1 vial SQ ACHS [facility]; Protocol Last Admin: 06/16/19 12:09 Dose: Not Given Levothyroxine Sodium 112 mcg/ (Levothyroxine Sodium 25 mcg) 137 mcg PO DAILY@ 0700 [facility] Last Admin: 06/16/19 06:14 Dose: 137 mcg Tamsulosin HCl (Flomax -) 0.4 mg PO DAILY@0830 [facility] Last Admin: 06/16/19 08:55 Dose: 0.4 mg Valproate Sodium (Depakene -) 1,000 mg PO BID [facility] Last Admin: 06/16/19 08:58 Dose: 1,000 mg 79 year old gentleman with history of CKD stage 4 (baseline Cr 2.5-2.9), Schizoaffective disorder, hypertension, hyperlipidemia, anemia, BPH, CAD who presented from [place] with fever and desaturation and admitted for sepsis due to PNA with worsening renal function. 1. Acute kidney injury in setting of sepsis 2. Chronic kidney disease stage 4 3. Sepsis/PNA 4. Hypernatremia secondary to suspected DI 5. Hyperkalemia 6. Hx of BPH 7. Hx of hypertension 8. Hyperlipidemia 9. Right Humerus fracture 10. Anemia Renal function is stable at this time. No acute indication for ASSESSMENT NURSE. Serum Na improved from yesterday, continue DDAVP and D5W oral water intake as tolerated once Na < 150 can d/c IVF pt can likely get intranasal DDAVP on discharge Luis Armando Ruiz DO
[2019-06-16] MEDS: DEXTROSE 5%-WATER - 1,000 ML IV SCH (16:28)
[2019-06-16] MEDS: ATORVASTATIN CA 10 MG TABLET (FP) PO SCH (21:50)
[2019-06-17] MEDS ORDERED: LEVOTHYROXINE NA 112 MCG TABLET (FP) ONE (05:32)
[2019-06-17] MEDS ORDERED: LEVOTHYROXINE NA 25 MCG TABLET (FP) ONE (05:33)
[2019-06-17] MEDS: INSULIN SLIDING SCALE (NOVOLOG) 1 VIAL SQ SCH ×4 (06:03→22:13)
[2019-06-17] MEDS: LEVOTHYROXINE 112 MCG, LEVOTHYROXINE 25 MCG PO SCH (06:04)
[2019-06-17] MEDS: TAMSULOSIN HCL 0.4 MG CAP PO SCH (08:41)
[2019-06-17] MEDS: AMINO ACIDS/PROTEIN HYDROLYS 30 ML LIQUID.PKT PO SCH ×2 (08:41→17:27)
[2019-06-17 10:29] LABS: HEMATOCRIT 25.2 % (35.4-49); HEMOGLOBIN 8.1 GM/dL (11.7-16.9); MCH 33.5 pg (25.7-33.7); MEAN CELL VOLUME 104.7 fl (80-96); PLATELET COUNT 271 K/MM3 (134-434); RBC 2.41 M/mm3 (4.00-5.60); RDW 15.3 % (11.9-15.9); WHITE BLOOD COUNT 6.1 K/mm3 (4.0-10.0)
[2019-06-17 10:42] LABS: BILIRUBIN,TOTAL 0.4 mg/dL (0.2-1); BLOOD UREA NITROGEN 37.8 mg/dL (7-18); CALCIUM 8.1 mg/dL (8.5-10.1); CREATININE 2.4 mg/dL (0.55-1.3); POTASSIUM 3.6 mmol/L (3.5-5.1)
[2019-06-17] MEDS ORDERED: PT OWN MED DRAWER 7, Y5N ONE (10:44)
[2019-06-17] MEDS: VALPROATE SODIUM 250 MG/5 ML UNIT DOSE CUP PO SCH ×2 (10:52→21:59)
[2019-06-17] MEDS: DESMOPRESSIN ACETATE 0.1 MG TABLET PO SCH ×2 (10:52→21:59)
[2019-06-17] MEDS: DEXTROSE 5%-WATER - 1,000 ML IV SCH (10:53)
[2019-06-17] MEDS: BACITRACIN 15 GM TUBE TOPICAL OINTMENT TP SCH ×2 (10:53→21:59)
--- NOTE | 2019-06-17 11:05 | PN ---
Progress Note (short form) - Note Progress Note: Renal follow up for AFTAB/Hypernatremia Seen and examined at the bedside awake and alert no acute complaints on IVF Vital Signs Temperature 97.6 F 06/17/19 06:00 Pulse Rate 69 06/17/19 06:00 Respiratory Rate 18 06/17/19 06:00 Blood Pressure 108/66 06/17/19 06:00 O2 Sat by Pulse Oximetry (%) 96 06/16/19 21:00 Intake & Output 06/14/19 06/15/19 06/16/19 06/17/19 23:59 23:59 23:59 23:59 Intake Total 750 1146 664 500 Output Total 0 Balance 750 1146 664 500 No distress, confused no LE edema CBC, BMP 06/17/19 09:50 06/17/19 06:00 Current Medications Acetaminophen (Tylenol -) 650 mg PO Q6H PRN PRN Reason: PAIN LEVEL 1-5 Amino Acids (Prosource No Carb Liquid Pkt) 30 ml PO BID@0800,1730 [facility] Last Admin: 06/17/19 08:41 Dose: 30 ml Atorvastatin Calcium (Lipitor -) 10 mg PO HS [facility] Last Admin: 06/16/19 21:50 Dose: 10 mg Bacitracin (Bacitracin -) 1 applic TP BID [facility] Last Admin: 06/17/19 10:53 Dose: 1 applic Desmopressin Acetate (Ddavp -) 0.05 mg PO BID [facility] Last Admin: 06/17/19 10:52 Dose: 0.05 mg Insulin Aspart (Novolog Vial Sliding Scale -) 1 vial SQ [facility]; Protocol Last Admin: 06/17/19 06:03 Dose: Not Given Levothyroxine Sodium 112 mcg/ (Levothyroxine Sodium 25 mcg) 137 mcg PO DAILY@ 0700 [facility] Last Admin: 06/17/19 06:04 Dose: 137 mcg Tamsulosin HCl (Flomax -) 0.4 mg PO DAILY@0830 [facility] Last Admin: 06/17/19 08:41 Dose: 0.4 mg Valproate Sodium (Depakene -) 1,000 mg PO BID [facility] Last Admin: 06/17/19 10:52 Dose: 1,000 mg 79 year old gentleman with history of CKD stage 4 (baseline Cr 2.5-2.9), Schizoaffective disorder, hypertension, hyperlipidemia, anemia, BPH, CAD who presented from [place] with fever and desaturation and admitted for sepsis due to PNA with worsening renal function. 1. Acute kidney injury in setting of sepsis 2. Chronic kidney disease stage 4 3. Sepsis/PNA 4. Hypernatremia secondary to suspected DI 5. Hyperkalemia 6. Hx of BPH 7. Hx of hypertension 8. Hyperlipidemia 9. Right Humerus fracture 10. Anemia Renal function is stable at this time. No acute indication for BANKING CONSULTANT. Serum Na is now improved to WNL. D/c D5W. Continue DDAVP PO. oral water intake as tolerated pt can likely get intranasal DDAVP on discharge Luis Armando Ruiz DO
--- NOTE | 2019-06-17 12:19 | PN ---
Progress Note (short form) - Note Progress Note: pt examined awake confused baseline mentation Vital Signs - 24 hr 06/16/19 06/16/19 06/16/19 14:00 18:00 21:00 Temperature 98.7 F 97.8 F Pulse Rate 67 70 Respiratory 20 19 Rate Blood Pressure 148/50 L 120/60 O2 Sat by Pulse 96 Oximetry (%) 06/16/19 06/17/19 06/17/19 22:07 02:00 06:00 Temperature 97.5 F L 97.6 F Pulse Rate 91 H 69 Respiratory 18 18 Rate Blood Pressure 97/67 128/58 L 108/66 O2 Sat by Pulse Oximetry (%) 06/17/19 10:00 Temperature Pulse Rate 70 Respiratory 20 Rate Blood Pressure 116/65 O2 Sat by Pulse Oximetry (%) Current Medications Generic Name Dose Route Start Last Admin Trade Name Freq PRN Reason Stop Dose Admin Acetaminophen 650 mg 06/12/19 20:54 Tylenol - PO Q6H PRN PAIN LEVEL 1-5 Amino Acids 30 ml 06/13/19 08:00 06/17/19 08:41 Prosource No Carb Liquid Pkt PO 30 ml BID@0800,1730 [facility] Administration Atorvastatin Calcium 10 mg 06/12/19 22:00 06/16/19 21:50 Lipitor - PO 10 mg HS [facility] Administration Bacitracin 1 applic 06/12/19 22:00 06/17/19 10:53 Bacitracin - TP 1 applic BID [facility] Administration Desmopressin Acetate 0.05 mg 06/15/19 22:00 06/17/19 10:52 Ddavp - PO 0.05 mg BID [facility] Administration Insulin Aspart 1 vial 06/12/19 22:00 06/17/19 06:03 Novolog Vial Sliding Scale - SQ Not Given ACHS [facility] Protocol Levothyroxine Sodium 112 mcg/ 137 mcg 06/15/19 07:00 06/17/19 06:04 Levothyroxine Sodium 25 mcg PO 137 mcg DAILY@0700 [facility] Administration Tamsulosin HCl 0.4 mg 06/13/19 08:30 06/17/19 08:41 Flomax - PO 0.4 mg DAILY@0830 [facility] Administration Valproate Sodium 1,000 mg 06/09/19 22:00 06/17/19 10:52 Depakene - PO 1,000 mg BID [facility] Administration Laboratory Results - last 24 hr 06/16/19 06/16/19 06/17/19 17:18 22:16 05:44 WBC RBC Hgb Hct MCV MCH MCHC RDW Plt Count MPV Sodium Potassium Chloride Carbon Dioxide Anion Gap BUN Creatinine Est GFR (CKD-EPI)AfAm Est GFR (CKD-EPI)NonAf POC Glucometer 87 96 105 Random Glucose Calcium Total Bilirubin AST ALT Alkaline Phosphatase Total Protein Albumin 06/17/19 06/17/19 06:00 09:50 WBC 6.1 RBC 2.41 L Hgb 8.1 L Hct 25.2 L MCV 104.7 H MCH 33.5 MCHC 32.0 RDW 15.3 Plt Count 271 D MPV 9.0 Sodium 144 Potassium 3.6 Chloride 112 H Carbon Dioxide 24 Anion Gap 8 BUN 37.8 H Creatinine 2.4 H Est GFR (CKD-EPI)AfAm 29.07 Est GFR (CKD-EPI)NonAf 25.08 POC Glucometer Random Glucose 313 H Calcium 8.1 L Total Bilirubin 0.4 AST 14 L ALT 14 Alkaline Phosphatase 150 H Total Protein 6.0 L Albumin 2.0 L S1 S2 RRR Lungs decreased Abd- soft, obese, NT edema+ Right arm - edema-- arm in sling A/P Acute on CKD Diabetes Insipidus Hyperkalemia Metabolic encephalopathy Rt humerus fracture sepsis -- monitor out put -- monitor HCT -- iv fluids -- DDAVP per renal -- possible DI -- completed iv antibiotics -- tolerating po -- encourage po liquids -- pt baseline renal function around 2.5 -- sodium better -- dc plan for tomorrow to [place] Problem List - Problems (1) Metabolic encephalopathy Code(s): G93.41 - METABOLIC ENCEPHALOPATHY (2) AFTAB (acute kidney injury) Code(s): N17.9 - ACUTE KIDNEY FAILURE, UNSPECIFIED (3) AMS (altered mental status) Code(s): R41.82 - ALTERED MENTAL STATUS, UNSPECIFIED (4) Anemia Code(s): D64.9 - ANEMIA, UNSPECIFIED (5) Bipolar disease, chronic Code(s): F31.9 - BIPOLAR DISORDER, UNSPECIFIED (6) Chronic renal failure, stage 4 (severe) Code(s): N18.4 - CHRONIC KIDNEY DISEASE, STAGE 4 (SEVERE) (7) Displaced fracture of right humerus Code(s): S42.301A - UNSP FRACTURE OF SHAFT OF HUMERUS, RIGHT ARM, INIT
--- NOTE | 2019-06-17 14:45 | PN ---
Progress Note, Physician History of Present Illness: stable no new issues - Current Medication List Current Medications: Active Medications Acetaminophen (Tylenol -) 650 mg PO Q6H PRN PRN Reason: PAIN LEVEL 1-5 Amino Acids (Prosource No Carb Liquid Pkt) 30 ml PO BID@0800,1730 [facility] Last Admin: 06/17/19 08:41 Dose: 30 ml Atorvastatin Calcium (Lipitor -) 10 mg PO HS [facility] Last Admin: 06/16/19 21:50 Dose: 10 mg Bacitracin (Bacitracin -) 1 applic TP BID [facility] Last Admin: 06/17/19 10:53 Dose: 1 applic Desmopressin Acetate (Ddavp -) 0.05 mg PO BID [facility] Last Admin: 06/17/19 10:52 Dose: 0.05 mg Insulin Aspart (Novolog Vial Sliding Scale -) 1 vial SQ [facility]; Protocol Last Admin: 06/17/19 12:45 Dose: Not Given Levothyroxine Sodium 112 mcg/ (Levothyroxine Sodium 25 mcg) 137 mcg PO DAILY@ 0700 [facility] Last Admin: 06/17/19 06:04 Dose: 137 mcg Tamsulosin HCl (Flomax -) 0.4 mg PO DAILY@0830 [facility] Last Admin: 06/17/19 08:41 Dose: 0.4 mg Valproate Sodium (Depakene -) 1,000 mg PO BID [facility] Last Admin: 06/17/19 10:52 Dose: 1,000 mg - Objective Vital Signs: Vital Signs Temperature 97.6 F 06/17/19 06:00 Pulse Rate 70 06/17/19 10:00 Respiratory Rate 20 06/17/19 10:00 Blood Pressure 116/65 06/17/19 10:00 O2 Sat by Pulse Oximetry (%) 96 06/16/19 21:00 Constitutional: Yes: No Distress, Calm Cardiovascular: Yes: S1, S2 Respiratory: Yes: Regular, CTA Bilaterally Gastrointestinal: Yes: Normal Bowel Sounds, Soft Musculoskeletal: Yes: WNL Extremities: Yes: WNL Labs: CBC, BMP 06/17/19 09:50 06/17/19 06:00 INR, PTT INR 1.19 (0.83-1.09) H 06/02/19 20:44 Assessment/Plan Problem List - Problems (1) Sepsis Code(s): A41.9 - SEPSIS, UNSPECIFIED ORGANISM Qualifiers: Sepsis type: sepsis due to unspecified organism Sepsis acute organ dysfunction status: with acute organ dysfunction Severe sepsis acute organ dysfunction type: acute renal failure Acute renal failure type: unspecified Severe sepsis shock status: without septic shock Qualified Code(s): A41.9 - Sepsis, unspecified organism; R65.20 - Severe sepsis without septic shock; N17.9 - Acute kidney failure, unspecified (2) AMS (altered mental status) Code(s): R41.82 - ALTERED MENTAL STATUS, UNSPECIFIED (3) AFTAB (acute kidney injury) Code(s): N17.9 - ACUTE KIDNEY FAILURE, UNSPECIFIED (4) Hyperglycemia Code(s): R73.9 - HYPERGLYCEMIA, UNSPECIFIED (5) Renal failure (ARF), acute on chronic Code(s): N17.9 - ACUTE KIDNEY FAILURE, UNSPECIFIED; N18.9 - CHRONIC KIDNEY DISEASE, UNSPECIFIED (6) HTN (hypertension) Code(s): I10 - ESSENTIAL (PRIMARY) HYPERTENSION (7) HLD (hyperlipidemia) Code(s): E78.5 - HYPERLIPIDEMIA, UNSPECIFIED (8) Anemia Code(s): D64.9 - ANEMIA, UNSPECIFIED (9) Hypothyroidism Code(s): E03.9 - HYPOTHYROIDISM, UNSPECIFIED (10) Schizo affective schizophrenia Code(s): F25.9 - SCHIZOAFFECTIVE DISORDER, UNSPECIFIED (11) BPH (benign prostatic hyperplasia) Code(s): N40.0 - BENIGN PROSTATIC HYPERPLASIA WITHOUT LOWER URINRY TRACT SYMP (12) Hyperkalemia Code(s): E87.5 - HYPERKALEMIA (13) Hypernatremia Code(s): E87.0 - HYPEROSMOLALITY AND HYPERNATREMIA 14 gm positive bacteremia 15 uti plan continue current mgmt rest as per the team nutrition hydration
[2019-06-17] MEDS: ATORVASTATIN CA 10 MG TABLET (FP) PO SCH (21:59)
[2019-06-18] MEDS ORDERED: LEVOTHYROXINE NA 112 MCG TABLET (FP) ONE (05:17)
[2019-06-18] MEDS ORDERED: LEVOTHYROXINE NA 25 MCG TABLET (FP) ONE (05:17)
[2019-06-18] MEDS: INSULIN SLIDING SCALE (NOVOLOG) 1 VIAL SQ SCH ×2 (06:02→12:33)
[2019-06-18] MEDS: LEVOTHYROXINE 112 MCG, LEVOTHYROXINE 25 MCG PO SCH (06:03)
[2019-06-18 08:22] LABS: BLOOD UREA NITROGEN 38.3 mg/dL (7-18); CALCIUM 8.3 mg/dL (8.5-10.1); CREATININE 2.4 mg/dL (0.55-1.3); POTASSIUM 3.9 mmol/L (3.5-5.1)
[2019-06-18] MEDS: AMINO ACIDS/PROTEIN HYDROLYS 30 ML LIQUID.PKT PO SCH (09:36)
[2019-06-18] MEDS: TAMSULOSIN HCL 0.4 MG CAP PO SCH (09:36)
[2019-06-18] MEDS: VALPROATE SODIUM 250 MG/5 ML UNIT DOSE CUP PO SCH (09:36)
[2019-06-18] MEDS: DESMOPRESSIN ACETATE 0.1 MG TABLET PO SCH (09:37)
[2019-06-18] MEDS: BACITRACIN 15 GM TUBE TOPICAL OINTMENT TP SCH (09:39)
--- NOTE | 2019-06-18 10:31 | PN ---
Progress Note, Physician - Current Medication List Current Medications: Active Medications Acetaminophen (Tylenol -) 650 mg PO Q6H PRN PRN Reason: PAIN LEVEL 1-5 Amino Acids (Prosource No Carb Liquid Pkt) 30 ml PO BID@0800,1730 [facility] Last Admin: 06/18/19 09:36 Dose: 30 ml Atorvastatin Calcium (Lipitor -) 10 mg PO HS [facility] Last Admin: 06/17/19 21:59 Dose: 10 mg Bacitracin (Bacitracin -) 1 applic TP BID [facility] Last Admin: 06/18/19 09:39 Dose: 1 applic Desmopressin Acetate (Ddavp -) 0.05 mg PO BID [facility] Last Admin: 06/18/19 09:37 Dose: 0.05 mg Insulin Aspart (Novolog Vial Sliding Scale -) 1 vial SQ [facility]; Protocol Last Admin: 06/18/19 06:02 Dose: Not Given Levothyroxine Sodium 112 mcg/ (Levothyroxine Sodium 25 mcg) 137 mcg PO DAILY@ 0700 [facility] Last Admin: 06/18/19 06:03 Dose: 137 mcg Tamsulosin HCl (Flomax -) 0.4 mg PO DAILY@0830 [facility] Last Admin: 06/18/19 09:36 Dose: 0.4 mg Valproate Sodium (Depakene -) 1,000 mg PO BID [facility] Last Admin: 06/18/19 09:36 Dose: 1,000 mg - Objective Vital Signs: Vital Signs Temperature 98.1 F 06/18/19 05:29 Pulse Rate 78 06/18/19 05:29 Respiratory Rate 20 06/18/19 05:29 Blood Pressure 136/61 06/18/19 05:29 O2 Sat by Pulse Oximetry (%) 98 06/17/19 21:00 Labs: CBC, BMP 06/17/19 09:50 06/18/19 07:05 INR, PTT INR 1.19 (0.83-1.09) H 06/02/19 20:44
--- NOTE | 2019-06-18 11:24 | DS ---
Physical Examination Vital Signs: Vital Signs Temperature 98.1 F 06/18/19 05:29 Pulse Rate 78 06/18/19 05:29 Respiratory Rate 20 06/18/19 05:29 Blood Pressure 136/61 06/18/19 05:29 O2 Sat by Pulse Oximetry (%) 98 06/17/19 21:00 Constitutional: Yes: No Distress, Calm Cardiovascular: Yes: Regular Rate and Rhythm Respiratory: Yes: Diminished Gastrointestinal: Yes: Normal Bowel Sounds, Soft. No: Tenderness Edema: No Neurological: Yes: Alert, Confusion Labs: CBC, BMP 06/17/19 09:50 06/18/19 07:05 Discharge Summary Problems reviewed: Yes Reason For Visit: ACUTE KIDNEY INJURY, HYPERGLYCEMIA,PNEUMONIA Current Active Problems AFTAB (acute kidney injury) (Acute) AMS (altered mental status) (Acute) Anemia (Acute) BPH (benign prostatic hyperplasia) (Acute) HLD (hyperlipidemia) (Acute) HTN (hypertension) (Acute) Hyperglycemia (Acute) Hyperkalemia (Acute) Hypernatremia (Acute) Hypothyroidism (Acute) Metabolic encephalopathy (Acute) Renal failure (ARF), acute on chronic (Acute) Schizo affective schizophrenia (Acute) Sepsis (Acute) Hospital Course: - Admission Chief Complaint: AMS History of Present Illness: 79 year old male with PMHx of HTN, HLD, CKD Stage 4, Anemia, Hypothyroidism, Schizoaffective Disorder,ASHD, BPH BIBA from [facility] for being lethargic, febrile to 102 and low O2 saturation. Per records, patient was feeling this way around lunch time which he was found to be febrile for which he was given 1g tylenol. Patient found unresponsive this afternoon around 4-5pm,given IV fluids and a dose of Zosyn around 5pm at [place]. Records also state that patient was not having any urine output this afternoon. Per EMS, patient was saturating in the 80s so he was placed on NRB. Patient examined AMS, unable to provide any information. Respond to tactile stimuli, and moans to some verbal commands. Unable to obtain ROS. Patient was here recently 05/26/19 for right arm humerus fx and aytpical syncope. HOSPITAL COURSE Pt was found to be septic , acute renal failure and hypernatremic Was started on IV fluids and iv antibiotics He was evaluated by Renal ,ID, Psychiatry Was on iv fluids for very long time Sodium was not improving Urine osm low normal, urine output was elevated Diagnosed to have possible Diabetes Insipidus Started on on DDAVP and responding to it He completed antibiotics for UTI and staph auricularis bacteremia- repeat blood cultures negative Renal function at baseline creatinine 2.4-2.5 Stable for dc to [facility] Condition: Stable - Instructions Disposition: [facility] - Home Medications Comprehensive Discharge Medication List: Ambulatory Orders Aspirin [ASA -] 1 tab PO DAILY 08/19/18 Divalproex [Depakote -] 1,000 mg PO BID 08/19/18 Gabapentin 100 mg PO BID 08/19/18 Levothyroxine [Synthroid -] 125 mcg PO DAILY 08/19/18 Melatonin 5 mg PO HS 08/19/18 Olanzapine 10 mg PO DAILY 08/19/18 Sennosides [Senna] 8.6 mg PO HS 08/19/18 Tamsulosin HCl 0.4 cap PO HS 08/19/18 Ferrous Sulfate 325 mg PO DAILY 09/30/18 Atorvastatin Ca [Lipitor] 10 mg PO HS 05/26/19 Loxapine Succinate [Loxapine] 10 mg PO BID 05/26/19 Acetaminophen 325 mg PO PRN PRN 06/02/19 Acetaminophen [Tylenol -] 500 mg PO Q8H PRN 06/02/19 Ketoconazole 2% Shampoo [Nizoral 2% Shampoo -] 1 applic TP WEEKLY 06/02/19 Oseltamivir Phosphate [Tamiflu] 30 mg PO Q2D 06/02/19
--- NOTE | 2019-06-18 13:10 | PN ---
Progress Note (short form) - Note Progress Note: Renal follow up for AFTAB/Hypernatremia Seen and examined at the bedside awake and alert no acute complaints not eating well. Vital Signs Temperature 98.1 F 06/18/19 05:29 Pulse Rate 64 06/18/19 10:00 Respiratory Rate 18 06/18/19 10:00 Blood Pressure 118/70 06/18/19 10:00 O2 Sat by Pulse Oximetry (%) 98 06/18/19 09:00 Intake & Output 06/15/19 06/16/19 06/17/19 06/18/19 23:59 23:59 23:59 23:59 Intake Total 1146 664 950 50 Output Total 0 Balance 1146 664 950 50 No distress, confused no LE edema CBC, BMP 06/17/19 09:50 06/18/19 07:05 Current Medications Acetaminophen (Tylenol -) 650 mg PO Q6H PRN PRN Reason: PAIN LEVEL 1-5 Amino Acids (Prosource No Carb Liquid Pkt) 30 ml PO BID@0800,1730 [facility] Last Admin: 06/18/19 09:36 Dose: 30 ml Atorvastatin Calcium (Lipitor -) 10 mg PO HS [facility] Last Admin: 06/17/19 21:59 Dose: 10 mg Bacitracin (Bacitracin -) 1 applic TP BID [facility] Last Admin: 06/18/19 09:39 Dose: 1 applic Desmopressin Acetate (Ddavp -) 0.05 mg PO BID [facility] Last Admin: 06/18/19 09:37 Dose: 0.05 mg Insulin Aspart (Novolog Vial Sliding Scale -) 1 vial SQ [facility]; Protocol Last Admin: 06/18/19 12:33 Dose: Not Given Levothyroxine Sodium 112 mcg/ (Levothyroxine Sodium 25 mcg) 137 mcg PO DAILY@ 0700 [facility] Last Admin: 06/18/19 06:03 Dose: 137 mcg Tamsulosin HCl (Flomax -) 0.4 mg PO DAILY@0830 [facility] Last Admin: 06/18/19 09:36 Dose: 0.4 mg Valproate Sodium (Depakene -) 1,000 mg PO BID [facility] Last Admin: 06/18/19 09:36 Dose: 1,000 mg 79 year old gentleman with history of CKD stage 4 (baseline Cr 2.5-2.9), Schizoaffective disorder, hypertension, hyperlipidemia, anemia, BPH, CAD who presented [place] with fever and desaturation and admitted for sepsis due to PNA with worsening renal function. 1. Acute kidney injury in setting of sepsis 2. Chronic kidney disease stage 4 3. Sepsis/PNA 4. Hypernatremia secondary to suspected DI 5. Hyperkalemia 6. Hx of BPH 7. Hx of hypertension 8. Hyperlipidemia 9. Right Humerus fracture 10. Anemia Renal function is stable and at baseline. Continue DDAVP. oral water intake encouraged. Pt will need assistance getting to the water. Can continue DDAVP as an outpatient with weekly monitoring of Na levels as an outpatient. Luis Armando Ruiz DO
[2019-06-18 14:45] VITALS: BP 109/68; PULSE 71; TEMP 98.4
== END 2019-06-18 14:54 | DRG 871 ==
LOC: JER 19:59 → J5S 21:16 → JERBED 06-03 02:22 → J2W 06-03 20:46 → J5S 06-12 21:01
PROVIDERS: ADMIT Internal Medicine; ATTEND Internal Medicine
DX: A41.9 Sepsis, unspecified organism (principal); J18.9 Pneumonia, unspecified organism; G93.41 Metabolic encephalopathy; J96.01 Acute respiratory failure with hypoxia; N17.9 Acute kidney failure, unspecified; N18.4 Chronic kidney disease, stage 4 (severe); E87.0 Hyperosmolality and hypernatremia; N39.0 Urinary tract infection, site not specified; E86.0 Dehydration; E78.5 Hyperlipidemia, unspecified; D64.9 Anemia, unspecified; E03.9 Hypothyroidism, unspecified; F25.9 Schizoaffective disorder, unspecified; D69.6 Thrombocytopenia, unspecified; N40.0 Benign prostatic hyperplasia without lower urinary tract symptoms; I25.10 Atherosclerotic heart disease of native coronary artery without angina pectoris; E87.5 Hyperkalemia; R73.9 Hyperglycemia, unspecified; I12.9 Hypertensive chronic kidney disease with stage 1 through stage 4 chronic kidney disease, or unspecified chronic kidney disease; F31.9 Bipolar disorder, unspecified
CPT/HCPCS: 36415; 36600; 70450-TC; 71045-TC-FY; 71250-TC; 74176-TC; 76775-TC; 76856-TC; 80048; 80053; 80061; 80164; 81003; 82272; 82375; 82565; 82570; 82728; 82803; 82962; 83036; 83050; 83540; 83550; 83605; 83721; 83735; 83930; 83935; 84100; 84156; 84300; 84443; 84484; 84540; 85025; 85027; 85610; 85730; 87040; 87086; 87186; 87205; 87804; 93005; 93010; 97116-GP; 97162-GP; 99285-25; G0480; J0131; J1644; J7030